=== PATIENT | male | born 1960 | race Caucasian/White ===

== ENCOUNTER 2019-06-30 15:19 | Inpatient (IN) | payer MEDICARE, SELFPAY ==
[~2019-06-30] VITALS: Ht 167.6 cm; Wt 73.3 kg
[~2019-06-30 15:19] MED LIST: CLON1TAB8 PO; CLON2TAB7 PO; COGENTIN; DEPAKOTE ER; FLUP25TA PO; FLUP25VL IM; KLON0.5T; KLON1TAB; LEVO100T5 PO; LOTRIMIN; PROLIXIN; PROLIXIN DECANOATE; PROLIXIN DECONATE; SERO1TAB3; SERO300T20; SYNT100T; SYNT75TA; TRAZ100T; prolixin decanoate
[2019-06-30 16:41] LABS: HEMATOCRIT 43.9 % (42.0-52.0); HEMOGLOBIN 14.8 g/dl (13.5-17.5); MEAN CORPUSCULAR HGB CONC 33.7 g/dl (32.0-36.5); PLATELET COUNT, AUTOMATED 331 10^3/uL (150-450); RED BLOOD COUNT 4.77 10^6/uL (4.30-6.10); WHITE BLOOD COUNT 9.9 10^3/uL (4.0-10.0)
[2019-06-30 17:00] LABS: AMPHETAMINES LEVEL URINE NEGATIVE (NEGATIVE); BARBITURATES URINE NEGATIVE (NEGATIVE); BENZODIAZEPINES URINE NEGATIVE (NEGATIVE); CANNABINOIDS URINE NEGATIVE (NEGATIVE); COCAINE METABOLITE URINE NEGATIVE (NEGATIVE); METHADONE URINE NEGATIVE (NEGATIVE); OPIATES URINE NEGATIVE (NEGATIVE); PHENCYCLIDINE URINE NEGATIVE (NEGATIVE)
[2019-06-30 17:12] LABS: ACETAMINOPHEN LEVEL < 2.0 UG/ML (10.0-30.0); ALBUMIN 4.2 GM/DL (3.2-5.2); ALT/SGPT 19 U/L (12-78); BILIRUBIN,DIRECT < 0.1 MG/DL (0.0-0.2); BILIRUBIN,TOTAL 0.4 MG/DL (0.2-1.0); BLOOD UREA NITROGEN 14 MG/DL (7-18); CARBON DIOXIDE LEVEL 28 MEQ/L (21-32); CHLORIDE LEVEL 105 MEQ/L (98-107); CREATININE FOR GFR 1.01 MG/DL (0.70-1.30); ETHYL ALCOHOL (ETHANOL) 0.003 % (0.000-0.010); GLOMERULAR FILTRATION RATE > 60.0 (>49); GLUCOSE, FASTING 79 MG/DL (70-100); POTASSIUM SERUM 4.3 MEQ/L (3.5-5.1); SALICYLATE LEVEL 2.5 MG/DL (5.0-30.0); SODIUM LEVEL 139 MEQ/L (136-145); TOTAL PROTEIN 7.5 GM/DL (6.4-8.2)
[2019-06-30] MEDS ORDERED: ACETAMINOPHEN TAB 650MG DOSE (2X325MG) PO PRN (19:00)
[2019-06-30] MEDS ORDERED: MAALOX 30 ML SUSP *UDC PO PRN (19:00)
[2019-06-30] MEDS ORDERED: VALA1TAB2 PO (19:15)
[2019-06-30 21:30] VITALS: BP 137/82
[2019-06-30] MEDS: traZODone 50 MG TAB PO PRN (23:12)
[2019-07-01] MEDS ORDERED: LORazepam 2 MG TAB PO ONE (03:45)
[2019-07-01 07:40] VITALS: BP 128/84
[2019-07-01] MEDS: NICOTINE 21MG/24HR 1 EA TRANSDERMAL TD SCH (08:00)
--- NOTE | 2019-07-01 08:18 | MHHPEPDOC ---
[facility] History & Physical History and Physical New Patient Demario Pierson MRN: N/A Date of : N/A Date of Service: 07/01/2019 Chief Complaint "I've done some horrible things." History of Present Illness The patient is a 59-year-old man was brought in for depression and suicidal ideation. He reportedly came to the ED after bringing himself to the police sta ting that he had done terrible things to people and had listed a list of unusual fairly bizarre way, stating that he had done horrible things to people. He reports suicidal thoughts with intention to kill himself with a car, but had asked for help. He was brought into the ER, assessed and admitted. The patient has a well-known history of psychotic disorder and presents in a fairly bizarre disorganized manner. When I attempted to interview the patient, he was fairly disorganized, unable to engage with a significant part of the interview and I was unable to focus him towards answering much of the questions as he spoke about bizarre topics such as fluids in the refrigerator and was unable to be focused to any great degree. Thus the information below is extracted from his psychosocial and other chart review. Review Of Systems Unable to gain a full and effective review of systems due patient's mental status. Past Psychiatric History The patient has reported history being hospitalized in the past, tried on Prolixin last time in 2008. At the time, he was reportedly diagnosed with schizoaffective disorder, unclear if any history of suicide. Allergies Please see below. Family Psychiatric History The patient denies/is unaware any history of mental health history including addictions and suicide. Social History The patient reportedly has grown up in the local area. Never with no children. He subsists on social security disability third of the month. Reports a high school education. Reports that he has been arrested due to molesting "a whole bunch of people." He reports being sentenced to "99 years" and been convicted of a sexual offense, however, this is unclear due to the potential psychotic presentation. He reports growing up in a household with his parents with a good relationship with them. Substance Abuse History The patient reports history in the past about alcohol use and tobacco use, unclear the extent of recent use. Medical History Has a history of COPD and other metabolic disorders. Mental Status Examination General: Poor hygiene Speech: Sparse Thought processes: Tangential MSK: Smooth and coordinated gait, no signs of tremors or involuntary orofacial movements Thought content: Bizarre Abstract reasoning, and computation: Impaired Description of associations: Impaired Description of abnormal or psychotic thoughts: Denies any suicidal or homicidal ideation. Does appear to respond to internal stimuli. Judgment: Poor Insight: Poor Orientation: Alert and orientated 3 Cognition: Grossly normal Recent and remote memory: Intact Attention span and concentration: Impaired secondary to thought process Fund of knowledge: Adequate Mood: "Bad" Affect: Flat with little reactivity Diagnoses Unspecified psychotic disorder. Rule out schizoaffective versus bipolar. Assessment and Plan Schizoaffective disorder, unspecified: We will consider adding fluphenazine as he reports doing positive in the past. He has a long history of psychotic illness, unclear if his current perceptions are delusional or the result of litigation. Disposition Patient will need admission likely lasting longer than 2 midnights in order to treat his severe psychosis impairing his ability to care himself. Problem List 1. Altered thoughts. Initial Treatment Plan 1. Patient was admitted on a 9.39 legal status. 2. Complete history was obtained. 3. With patients permission, family will be contacted and database will be expanded. 4. Patients medication regimen will be reviewed and changed accordingly. 5. Patient will be provided with protected environment. 6. Patient will be treated with individual, group, and milieu therapies. 7. Patient will receive supportive psych-education. 8. Discharge planning will commence immediately. 9. Outpatient follow-up treatment will be strongly recommended. 10. The initial treatment plan will focus initially on: Estimated Length Of Stay Five days. Time Spent 30 minutes. Vital Signs Vital Signs Date Time Temp Pulse Resp B/P (MAP) Pulse Ox O2 Delivery O2 Flow Rate FiO2 07/01/19 07:40 98.1 85 16 128/84 (99) 06/30/19 19:01 98 Room Air Laboratory Data 24H Labs Laboratory Tests 2 06/30/19 16:18: Urine Amphetamines Screen NEGATIVE, Urine Benzodiazepines Screen NEGATIVE, Urine Opiates Screen NEGATIVE, Urine Methadone Screen NEGATIVE, Urine Barbiturates Screen NEGATIVE, Urine Phencyclidine Screen NEGATIVE, Urine Cocaine Metabolite Screen NEGATIVE, Urine Cannabinoids Screen NEGATIVE 06/30/19 16:22: Nucleated Red Blood Cells % (auto) 0.0, Anion Gap 6L, Glomerular Filtration Rate > 60.0, Calcium Level 9.0, Aspartate Amino Transf (AST/SGOT) 11, Alanine Aminotransferase (ALT/SGPT) 19, Alkaline Phosphatase 101, Total Bilirubin 0.4, Direct Bilirubin < 0.1, Total Protein 7.5, Albumin 4.2, Albumin/Globulin Ratio 1.27, Thyroid Stimulating Hormone (TSH) 9.360H, Salicylates Level 2.5L, Acetaminophen Level < 2.0L, Ethyl Alcohol Level 0.003 CBC/BMP Laboratory Tests 06/30/19 16:22 Red Blood Count 4.77, Mean Corpuscular Volume 92.0, Mean Corpuscular Hemoglobin 31.0, Mean Corpuscular Hemoglobin Concent 33.7, Red Cell Distribution Width 14.0 Medications Scheduled Valacyclovir HCl (Valacyclovir) 1,000 Mg Tablet, 1 GM PO TID, (Reported) PATIENT STATES THIS IS CAUSING ITCHING AND DIARRHEA AND IS QUESTIONING IF THIS CAN BE SWITCHED Allergies Coded Allergies: No Known Allergies (Verified , 10/27/05) SUMMER BENITES DO Jul 01, 2019 08:18
--- NOTE | 2019-07-01 10:22 | HPEPDOC ---
General Date of Admission Jun 30, 2019 at 18:59 Date of Service: Jul 01, 2019 Attending Physician: OZZIE ARREAGA MD Chief Complaint The patient is a 59-year-old male admitted with a reason for visit of Unspecified Mood Disorder. Source: Patient Exam Limitations: No limitations Timing/Duration: Other (not applicable) Severity: Other (not applicable) Associated Symptoms: Other (. None) History of Present Illness 59 years old white male with past medical history of bipolar disorder, schizophrenia was admitted with the chief complaints of hearing voices. On reviewing patient's old records and EMR. Also was found to have a history of hypothyroidism and when inquired patient said he has not taken any meds for lost 3 years and he was also on Maco cracks for dental herpes 6 months ago. Does not complaining of any new medical complaints such as mild spent tired, fatigue, dry skin, chest pain, nausea, vomiting, shortness of breath, etc. Home Medications Scheduled Valacyclovir HCl (Valacyclovir) 1,000 Mg Tablet, 1 GM PO TID, (Reported) PATIENT STATES THIS IS CAUSING ITCHING AND DIARRHEA AND IS QUESTIONING IF THIS CAN BE SWITCHED Allergies Coded Allergies: No Known Allergies (Verified , 10/27/05) Past Medical History Medical History Dental herpes, hypothyroidism, bipolar disorder, schizophrenia Surgical History Dental extraction Family History Significant Family History: No pertinent family hx (. Mother had diabetes and hypertension) Social History * Smoker: current smoker, greater than 1 pack/day Alcohol: Denies Drugs: marijuana A-FIB/CHADSVASC A-FIB History Current/History of A-Fib/PAF?: No Review of Systems Constitutional: Denies: Chills, Fever, Malaise, Night Sweats, Weakness, Fatigue, Weight Loss, Lethargy, Other Eyes: Denies: Pain, Vision change, Conjunctivae inflammation, Eyelid inflammation, Redness, Other ENT: Denies: Head Aches, Ear Pain, Dysphagia, Sinus Congestion, Post Nasal Drip, Sore Throat, Epistaxis, Other Symptoms Skin: Denies: Rash, Lesions, Jaundice, Bruising, Itching, Dry, Breakdown, Nail Changes, Other Pulmonary: Denies: Dyspnea, Cough, Pleuritic Chest Pain, Other Symptoms Cardiovascular: Denies: Chest Pain, Palpitations, Orthopnea, Paroxysmal Noc. Dyspnea, Edema, Lt Headedness, Other Symptoms Gastrointestinal: Denies: Nausea, Vomiting, Abdominal Pain, Diarrhea, Constipation, Melena, Hematochezia, Other Symptoms Genitourinary: Denies: Dysuria, Frequency, Incontinence, Hematuria, Retention, Other Symptoms Hematologic: Denies: Bruising, Bleeding Excessively, Petecchia, Purpura, Enlarged Lymph Nodes, Other Hematologic Endocrine: Denies: Polydipsia, Polyphagia, Polyuria, Heat Intolerance, Cold Intolerance, Other Endocrine Sx Musculoskeletal: Denies: Neck Pain, Back Pain, Shoulder Pain, Arm Pain, Hand Pain, Leg Pain, Foot Pain, Joint Pain, Muscle Pain, Spasms, Other Symptoms Neurological: Denies: Weakness, Numbness, Incoordination, Change in speech, Confusion, Seizures, Other Symptoms Psych: Reports: Other Psych (, hearing voices) Physical Examination General Exam: Positive: Alert, Cooperative Eye Exam: Positive: PERRLA, Conjunctiva & lids normal ENT Exam: Positive: Atraumatic, Mucous membr. moist/pink Neck Exam: Positive: Supple Chest Exam: Positive: Clear to auscultation, Normal air movement Heart Exam: Positive: Rate Normal, Normal S1, Normal S2 Abdomen Exam: Positive: Normal bowel sounds, Soft Extremity Exam: Positive: Normal pulses Skin Exam: Positive: Nl turgor and temperature Neuro Exam: Positive: Strength at 5/5 X4 ext, Sensation Intact Psych Exam: Positive: Mood NL, Oriented x 3 Vital Signs Vital Signs Date Time Temp Pulse Resp B/P (MAP) Pulse Ox O2 Delivery O2 Flow Rate FiO2 07/01/19 07:40 98.1 85 16 128/84 (99) 06/30/19 19:01 98 Room Air Laboratory Data Labs 24H Laboratory Tests 2 06/30/19 16:18: Urine Amphetamines Screen NEGATIVE, Urine Benzodiazepines Screen NEGATIVE, Urine Opiates Screen NEGATIVE, Urine Methadone Screen NEGATIVE, Urine Barbiturates Screen NEGATIVE, Urine Phencyclidine Screen NEGATIVE, Urine Cocaine Metabolite Screen NEGATIVE, Urine Cannabinoids Screen NEGATIVE 06/30/19 16:22: Nucleated Red Blood Cells % (auto) 0.0, Anion Gap 6L, Glomerular Filtration Rate > 60.0, Calcium Level 9.0, Aspartate Amino Transf (AST/SGOT) 11, Alanine Aminotransferase (ALT/SGPT) 19, Alkaline Phosphatase 101, Total Bilirubin 0.4, Direct Bilirubin < 0.1, Total Protein 7.5, Albumin 4.2, Albumin/Globulin Ratio 1.27, Thyroid Stimulating Hormone (TSH) 9.360H, Salicylates Level 2.5L, Acetaminophen Level < 2.0L, Ethyl Alcohol Level 0.003 CBC/BMP Laboratory Tests 06/30/19 16:22 Red Blood Count 4.77, Mean Corpuscular Volume 92.0, Mean Corpuscular Hemoglobin 31.0, Mean Corpuscular Hemoglobin Concent 33.7, Red Cell Distribution Width 14.0 Problems (1) Schizophrenia Status: Chronic Problem Text: 59 years old white male with past medical history of hypothyroidism. Dental herpes, schizophrenia, bipolar disorder, admitted with chief complaints of hearing voices. For psych management as per his psychiatric attending Group and individual counseling (2) Bipolar disorder Status: Chronic Problem Text: As above (3) Hx of herpes labialis Status: Chronic Problem Text: History of dental herpes Patient has no dentures and he is to pick him up from his dentist No evidence of any acute infection at the present time (4) Hypothyroid Status: Chronic Problem Text: History of hypothyroidism. Patient has not taken his meds since last 3 years Repeat TSH and free T4 Will restart meds, once the laboratory work is available Plan / VTE VTE Prophylaxis Ordered?: No VTE Exclusion Mechanical Proph: Low Risk for VTE VTE Exclusion Pharmacological: At Low Risk for VTE OZZIE ARREAGA MD Jul 01, 2019 10:22
[2019-07-01 11:44] LABS: FREE T4 0.72 NG/DL (0.76-1.46); THYROID STIMULATING HORMONE 11.2 uIU/ML (0.358-3.740)
[2019-07-01 18:00] VITALS: BP 108/68
[2019-07-01] MEDS: valACYclovir HCL 500 MG TAB PO SCH (20:01)
[2019-07-01] MEDS: traZODone 50 MG TAB PO PRN (20:40)
[2019-07-02] MEDS ORDERED: LORazepam 2 MG TAB PO ONE (01:00)
[2019-07-02] MEDS: LEVOTHYROXINE 50MCG TABLET (0.05MG) PO SCH (06:15)
[2019-07-02 06:32] VITALS: BP 112/76
[2019-07-02] MEDS: valACYclovir HCL 500 MG TAB PO SCH ×3 (08:03→20:30)
[2019-07-02] MEDS: NICOTINE 21MG/24HR 1 EA TRANSDERMAL TD SCH (08:53)
--- NOTE | 2019-07-02 09:41 | MHIPNPDOC ---
[facility] [place] Progress Note Progress Note Inpatient Progress Note Demario Pierson MRN: N/A Date of : N/A Date of Service: 07/02/2019 History of Present Illness The patient is a 59-year-old man was brought in for depression and suicidal ideation. He reportedly came to the ED after bringing himself to the police stating that he had done terrible things to people and had listed a list of unusual fairly bizarre way, stating that he had done horrible things to people. He reports suicidal thoughts with intention to kill himself with a car, but had asked for help. He was brought into the ER, assessed and admitted. The patient has a well-known history of psychotic disorder and presents in a fairly bizarre disorganized manner. When I attempted to interview the patient, he was fairly disorganized, unable to engage with a significant part of the interview and I was unable to focus him towards answering much of the questions as he spoke about bizarre topics such as fluids in the refrigerator and was unable to be focused to any great degree. Thus the information below is extracted from his psychosocial and other chart review. Interval History The patient was met with today. He was laying in his bed and would not come out in order to meet, so he is met with in his room. The patient related that he was still feeling "bad," but still remained fairly bizarre on the unit. He made various unusual statements, but was able to answer some questions when posed directly. Further information gathered from staff that have treated him in the past reveal a man who is severely psychotic with a psychotic illness. Reportedly, he had come into the police station with a list of people that he had reportedly abused, but has been fairly bizarre in groups describing contradictory information and generally unable to relate a coherent story. He has not had any major behavioral problems overnight, although nursing still note he is very bizarre nature and activities. Review Of Systems General: Denies fever or appetite changes Cardiovascular: Denies Chest pain or palpations GI: Denies Nausea, vomiting, or bowel changes Respiratory: Denies shortness of breath or cough Neuro: Denies dizziness, tremors Derm: Denies any rashes or pruritus : Denies any dysuria or urinary dysfunction MSK: Denies any muscle tightness or stiffness HEENT: Denies any vision changes or headaches Heme/Lymph: denies any bruising or bleeding Endo: denies any cold/heat intolerance or water intake changes Psychotherapy None on this visit. Vital Signs Reviewed. Mental Status Examination General: Poor hygiene Speech: Sparse Thought processes: Tangential MSK: Smooth and coordinated gait, no signs of tremors or involuntary orofacial movements Thought content: Bizarre Abstract reasoning, and computation: Impaired Description of associations: Impaired Description of abnormal or psychotic thoughts: Denies any suicidal or homicidal ideation. Does appear to respond to internal stimuli. Judgment: Poor Insight: Poor Orientation: Alert and orientated 3 Cognition: Grossly normal Recent and remote memory: Intact Attention span and concentration: Impaired secondary to thought process Fund of knowledge: Adequate Mood: "Okay" Affect: Flat with little reactivity Diagnoses Unspecified psychotic disorder. Rule out schizoaffective versus bipolar. Assessment and Plan Schizoaffective disorder, unspecified: We will start Prolixin 5 mg nightly as he reports positive effects in the past with injectable medications doing well for him. Discussed risks, benefits and potential side effects with patient. Disposition The patient will need further inpatient admission in order to treat his psychosis and further understand his behavior and the events leading to his admission as he is highly impaired, posing a danger to himself. Time Spent 15 minutes Friday Vital Signs Vital Signs Date Time Temp Pulse Resp B/P (MAP) Pulse Ox O2 Delivery O2 Flow Rate FiO2 07/02/19 08:33 Room Air 07/02/19 06:32 98.0 86 16 112/76 (88) 06/30/19 19:01 98 Laboratory Data 24H Labs Laboratory Tests 2 07/01/19 10:43: Thyroid Stimulating Hormone (TSH) 11.200H, Free Thyroxine 0.72L Current Medications Current Medications Medications (Trade) Dose Ordered Sig/Vivienne Route PRN Reason Start Time Stop Time Status Last Admin Dose Admin Acetaminophen (Tylenol Tab) 650 mg Q6HP PRN PO HEADACHE or DISCOMFORT 06/30/19 19:00 06/30/19 23:13 Al Hydrox/Mg Hydrox/Simethicone (Mylanta) 30 ml Q4HP PRN PO HEARTBURN/INDIGESTION 06/30/19 19:00 Home Med (Med Rec Complete!) ASDIRECTED XX 06/30/19 19:30 06/30/19 19:19 DC Levothyroxine Sodium (Synthroid) 50 mcg DAILY@06 PO 07/02/19 06:00 07/02/19 06:15 Magnesium Hydroxide (Milk Of Magnesia) 30 ml DAILYPRN PRN PO CONSTIPATION 06/30/19 19:00 Nicotine (Nicoderm Cq 21mg) 1 patch DAILY TD 07/01/19 09:00 Trazodone HCl (Desyrel) 50 mg QHSP PRN PO INSOMNIA 06/30/19 19:00 07/01/19 20:40 Valacyclovir HCl (Valtrex) 500 mg TID PO 07/01/19 21:00 07/02/19 08:03 Allergies Coded Allergies: No Known Allergies (Verified , 10/27/05) SUMMER BENITES DO Jul 02, 2019 09:41
[2019-07-02] MEDS ORDERED: valACYclovir HCL 500 MG TAB PO SCH (16:00)
[2019-07-02 16:05] VITALS: BP 142/83
[2019-07-02] MEDS: traZODone 50 MG TAB PO PRN (20:30)
[2019-07-03] MEDS: LEVOTHYROXINE 50MCG TABLET (0.05MG) PO SCH (06:31)
[2019-07-03 06:56] VITALS: BP 130/77
[2019-07-03] MEDS: NICOTINE 21MG/24HR 1 EA TRANSDERMAL TD SCH (08:12)
[2019-07-03] MEDS: valACYclovir HCL 500 MG TAB PO SCH ×3 (08:13→21:57)
[2019-07-03 16:05] VITALS: BP 118/75
--- NOTE | 2019-07-03 18:27 | MHIPNPDOC ---
[facility] Progress Note Progress Note DATE OF SERVICE: 07/03/19 HISTORY: As per previous records: "The patient is a 59-year-old man was brought in for depression and suicidal ideation. He reportedly came to the ED after br inging himself to the police stating that he had done terrible things to people and had listed a list of unusual fairly bizarre way, stating that he had done horrible things to people. He reports suicidal thoughts with intention to kill himself with a car, but had asked for help. He was brought into the ER, assessed and admitted. The patient has a well-known history of psychotic disorder and presents in a fairly bizarre disorganized manner. When I attempted to interview the patient, he was fairly disorganized, unable to engage with a significant part of the interview and I was unable to focus him towards answering much of the questions as he spoke about bizarre topics such as fluids in the refrigerator and was unable to be focused to any great degree. Thus the information below is extracted from his psychosocial and other chart review." VITAL SIGNS: See below. NEW TEST RESULTS: See below CURRENT MEDICATIONS: See below. MENTAL STATUS EXAMINATION: Patient is a 59 year old male, who is dressed in hospital clothes, cooperative. Speech: Is impoverished, tangential. Language skills are limited at this time. Thought processes including: tangential, disorganized. Thought content: self deprecating, guilty thoughts, derailed, ideas of reference. Denies SI, denies HI, denies paranoid delusions, bizarre delusions. He feels as if there's some stimuli in his mind that has been stimulating other people's minds, he thinks it causes a frequency that goes up and down in their heads and can affect their mind the same way it does to him. Abstract reasoning, and computation: limited at this time Description of associations: Loose Description of abnormal or psychotic thoughts: He has ideas of reference, thought insertion ( he thinks his mind can affect other people's minds). He denies T/A/V hallucinations Judgment: limited at this time Insight: poor Orientation: to place and person Recent and remote memory: limited at this time, he is psychotic Attention span and concentration: tries to keep focused but is hard Language: no abnormalities observed Fund of knowledge: not evaluated at this time Mood: overwhelmed, depressed Affect: depressed, sad, hopeless DIAGNOSES: 1. Schizoaffective disorder ASSESSMENT: patient is very depressed, he is aware of the cognitive impairment the illness i creating, when he is not able to read or focus on a T.V program. Provided support and encouraged him to keep attending groups, asked him to not to get discouraged, to stay in the here and now as much as he can. MANAGEMENT PLAN: As per Dr. Hay TIME SPENT: 30 minutes. Vital Signs Vital Signs Date Time Temp Pulse Resp B/P (MAP) Pulse Ox O2 Delivery O2 Flow Rate FiO2 07/03/19 06:56 98.4 69 14 130/77 (94) 07/02/19 08:33 Room Air 06/30/19 19:01 98 Current Medications Current Medications Medications (Trade) Dose Ordered Sig/Vivienne Route PRN Reason Start Time Stop Time Status Last Admin Dose Admin Acetaminophen (Tylenol Tab) 650 mg Q6HP PRN PO HEADACHE or DISCOMFORT 06/30/19 19:00 06/30/19 23:13 Al Hydrox/Mg Hydrox/Simethicone (Mylanta) 30 ml Q4HP PRN PO HEARTBURN/INDIGESTION 06/30/19 19:00 Fluphenazine HCl (Prolixin) 5 mg BID PO 07/02/19 21:00 07/03/19 08:13 Home Med (Med Rec Complete!) ASDIRECTED XX 06/30/19 19:30 06/30/19 19:19 DC Levothyroxine Sodium (Synthroid) 50 mcg DAILY@06 PO 07/02/19 06:00 07/03/19 06:31 Magnesium Hydroxide (Milk Of Magnesia) 30 ml DAILYPRN PRN PO CONSTIPATION 06/30/19 19:00 Nicotine (Nicoderm Cq 21mg) 1 patch DAILY TD 07/01/19 09:00 Trazodone HCl (Desyrel) 50 mg QHSP PRN PO INSOMNIA 06/30/19 19:00 07/02/19 20:30 Valacyclovir HCl (Valtrex) 500 mg TID PO 07/01/19 21:00 07/03/19 08:13 Valacyclovir HCl (Valtrex) 500 mg TID PO 07/02/19 16:00 07/02/19 13:05 DC Allergies Coded Allergies: No Known Allergies (Verified , 10/27/05) TOY RIDDLE MD Jul 03, 2019 13:56
[2019-07-03] MEDS: traZODone 50 MG TAB PO PRN (21:57)
[2019-07-04] MEDS: LEVOTHYROXINE 50MCG TABLET (0.05MG) PO SCH (06:00)
[2019-07-04 06:41] VITALS: BP 141/81
[2019-07-04] MEDS: NICOTINE 21MG/24HR 1 EA TRANSDERMAL TD SCH (08:45)
[2019-07-04] MEDS: valACYclovir HCL 500 MG TAB PO SCH ×3 (08:45→20:14)
--- NOTE | 2019-07-04 12:08 | MHIPNPDOC ---
[facility] Progress Note Progress Note DATE OF SERVICE: 07/04/19 HISTORY: As per previous records: "The patient is a 59-year-old man was brought in for depression and suicidal ideation. He reportedly came to the ED after br inging himself to the police stating that he had done terrible things to people and had listed a list of unusual fairly bizarre way, stating that he had done horrible things to people. He reports suicidal thoughts with intention to kill himself with a car, but had asked for help. He was brought into the ER, assessed and admitted. The patient has a well-known history of psychotic disorder and presents in a fairly bizarre disorganized manner. When I attempted to interview the patient, he was fairly disorganized, unable to engage with a significant part of the interview and I was unable to focus him towards answering much of the questions as he spoke about bizarre topics such as fluids in the refrigerator and was unable to be focused to any great degree. Thus the information below is extracted from his psychosocial and other chart review." VITAL SIGNS: See below. NEW TEST RESULTS: See below CURRENT MEDICATIONS: See below. MENTAL STATUS EXAMINATION: Patient is a 59 year old male, who is dressed in hospital clothes, cooperative. Speech: tangential, disorganized Language skills fair Thought processes including: tangential, disorganized. Thought content: self deprecating, guilty thoughts, derailed, ideas of reference. Denies SI, denies HI, denies paranoid delusions, bizarre delusions. He feels as if there's some stimuli in his mind that has been stimulating other people's minds, he thinks it causes a frequency that goes up and down in their heads and can affect their mind the same way it does to him. Abstract reasoning, and computation: limited at this time Description of associations: Loose Description of abnormal or psychotic thoughts: He has ideas of reference, thought insertion ( he thinks his mind can affect other people's minds). He d enies T/A/V hallucinations Judgment: limited at this time Insight: poor Orientation: to place and person Recent and remote memory: limited at this time, he is psychotic Attention span and concentration: tries to keep focused but is hard Language: no abnormalities observed Fund of knowledge: not evaluated at this time Mood: overwhelmed, depressed Affect: depressed, sad, hopeless DIAGNOSES: 1. Schizoaffective disorder ASSESSMENT: The patient continues to be depressed, he has told me he was about 18 years old when he had his first "nervous breakdown" and he has had them ever since. He thinks he is not intelligent, he calls himself a dumb person. He receives upport, talked with him about cognitive distortions and explained that he doesn't see anything positive in his life because he is depressed but asked him to be patient, because she will feel better, only it will take time. Patient is pleasant, he is struggling with his mind, with the delusions, depression and the difficulties his illness is causing, like for example, when he wants to re ad, is very hard for him to do it because his psychotic thoughts/ delusions interfere with it. He is less anxious than yesterday MANAGEMENT PLAN: As per Dr. Hay TIME SPENT: 30 minutes. Vital Signs Vital Signs Date Time Temp Pulse Resp B/P (MAP) Pulse Ox O2 Delivery O2 Flow Rate FiO2 07/04/19 06:41 97.2 76 16 141/81 (101) 07/02/19 08:33 Room Air 06/30/19 19:01 98 Current Medications Current Medications Medications (Trade) Dose Ordered Sig/Vivienne Route PRN Reason Start Time Stop Time Status Last Admin Dose Admin Acetaminophen (Tylenol Tab) 650 mg Q6HP PRN PO HEADACHE or DISCOMFORT 06/30/19 19:00 06/30/19 23:13 Al Hydrox/Mg Hydrox/Simethicone (Mylanta) 30 ml Q4HP PRN PO HEARTBURN/INDIGESTION 06/30/19 19:00 Fluphenazine HCl (Prolixin) 5 mg BID PO 07/02/19 21:00 07/04/19 08:45 Home Med (Med Rec Complete!) ASDIRECTED XX 06/30/19 19:30 06/30/19 19:19 DC Levothyroxine Sodium (Synthroid) 50 mcg DAILY@06 PO 07/02/19 06:00 07/04/19 06:00 Magnesium Hydroxide (Milk Of Magnesia) 30 ml DAILYPRN PRN PO CONSTIPATION 06/30/19 19:00 Nicotine (Nicoderm Cq 21mg) 1 patch DAILY TD 07/01/19 09:00 Trazodone HCl (Desyrel) 50 mg QHSP PRN PO INSOMNIA 06/30/19 19:00 07/03/19 21:57 Valacyclovir HCl (Valtrex) 500 mg TID PO 07/01/19 21:00 07/04/19 08:45 Valacyclovir HCl (Valtrex) 500 mg TID PO 07/02/19 16:00 07/02/19 13:05 DC Allergies Coded Allergies: No Known Allergies (Verified , 10/27/05) TOY RIDDLE MD Jul 04, 2019 12:08
[2019-07-04 16:05] VITALS: BP 134/75
[2019-07-04] MEDS: traZODone 50 MG TAB PO PRN (22:46)
[2019-07-05] MEDS: LEVOTHYROXINE 50MCG TABLET (0.05MG) PO SCH (05:39)
[2019-07-05 06:24] VITALS: BP 133/86
[2019-07-05] MEDS: valACYclovir HCL 500 MG TAB PO SCH ×3 (08:33→21:04)
[2019-07-05] MEDS: NICOTINE 21MG/24HR 1 EA TRANSDERMAL TD SCH (08:38)
--- NOTE | 2019-07-05 09:29 | MHIPNPDOC ---
[facility] Progress Note Progress Note Inpatient Progress Note Demario Pierson MRN: N/A Date of : N/A Date of Service: 07/05/2019 History of Present Illness The patient is a 59-year-old man was brought in for depression and suicidal ideation. He reportedly came to the ED after bringing himself to the police stating that he had done terrible things to people and had listed a list of unusual fairly bizarre way, stating that he had done horrible things to people. He reports suicidal thoughts with intention to kill himself with a car, but had asked for help. He was brought into the ER, assessed and admitted. The patient has a well-known history of psychotic disorder and presents in a fairly bizarre disorganized manner. When I attempted to interview the patient, he was fairly disorganized, unable to engage with a significant part of the interview and I was unable to focus him towards answering much of the questions as he spoke about bizarre topics such as fluids in the refrigerator and was unable to be focused to any great degree. Thus the information below is extracted from his psychosocial and other chart review. Interval History The patient was met with in the hallway as all offices were being used. The patient initially took quite a bit of prompting in order to meet with me as he said that he was "fine." The patient was able to state that he was feeling "bad about the things that he had done." Information gleaned from the [facility] Police appears to demonstrate the patient bizarrely came in with a note of people he had "hurt", however, they have no record or indication that he has committed any crimes and that this is likely a psychotic delusion. The patient has been not attending groups and generally socially isolative on the unit. He states that he is unclear how he will proceed now feeling that he will "go to [facility]." He appears to have significant guilt and self-rapprochement that is of a highly delusional nature. He reports that he is tolerating the Prolixin well. Review Of Systems General: Denies fever or appetite changes Cardiovascular: Denies Chest pain or palpations GI: Denies Nausea, vomiting, or bowel changes Respiratory: Denies shortness of breath or cough Neuro: Denies dizziness, tremors Derm: Denies any rashes or pruritus : Denies any dysuria or urinary dysfunction HEENT: Denies any vision changes or headaches Heme/Lymph: denies any bruising or bleeding Psychotherapy None on this visit. Vital Signs Reviewed. Mental Status Examination General: Poor hygiene Speech: Sparse Thought processes: Tangential MSK: Smooth and coordinated gait, no signs of tremors or involuntary orofacial movements Thought content: Bizarre Abstract reasoning, and computation: Impaired Description of associations: Impaired Description of abnormal or psychotic thoughts: Denies any suicidal or homicidal ideation. Does appear to respond to internal stimuli. Judgment: Poor Insight: Poor Orientation: Alert and orientated 3 Cognition: Grossly normal Recent and remote memory: Intact Attention span and concentration: Impaired secondary to thought process Fund of knowledge: Adequate Mood: "Okay" Affect: Flat with little reactivity Diagnoses Unspecified psychotic disorder. Rule out schizoaffective versus bipolar. Assessment and Plan Sookie-copy [id number] Schizoaffective disorder, unspecified: Continue Prolixin 5 mg BID. Tobacco use disorder: Continue nicotine patch. Disposition The patient will need further inpatient admission in order to treat his psychosis and further understand his behavior and the events leading to his admission as he is highly impaired, posing a danger to himself. Time Spent 15 minutes. Friday Vital Signs Vital Signs Date Time Temp Pulse Resp B/P (MAP) Pulse Ox O2 Delivery O2 Flow Rate FiO2 07/05/19 06:24 98.3 74 18 133/86 (102) 07/02/19 08:33 Room Air 06/30/19 19:01 98 Current Medications Current Medications Medications (Trade) Dose Ordered Sig/Vivienne Route PRN Reason Start Time Stop Time Status Last Admin Dose Admin Acetaminophen (Tylenol Tab) 650 mg Q6HP PRN PO HEADACHE or DISCOMFORT 06/30/19 19:00 06/30/19 23:13 Al Hydrox/Mg Hydrox/Simethicone (Mylanta) 30 ml Q4HP PRN PO HEARTBURN/INDIGESTION 06/30/19 19:00 Fluphenazine HCl (Prolixin) 5 mg BID PO 07/02/19 21:00 07/05/19 08:33 Home Med (Med Rec Complete!) ASDIRECTED XX 06/30/19 19:30 06/30/19 19:19 DC Levothyroxine Sodium (Synthroid) 50 mcg DAILY@06 PO 07/02/19 06:00 07/05/19 05:39 Magnesium Hydroxide (Milk Of Magnesia) 30 ml DAILYPRN PRN PO CONSTIPATION 06/30/19 19:00 Nicotine (Nicoderm Cq 21mg) 1 patch DAILY TD 07/01/19 09:00 Trazodone HCl (Desyrel) 50 mg QHSP PRN PO INSOMNIA 06/30/19 19:00 07/04/19 22:46 Valacyclovir HCl (Valtrex) 500 mg TID PO 07/01/19 21:00 07/05/19 08:33 Valacyclovir HCl (Valtrex) 500 mg TID PO 07/02/19 16:00 07/02/19 13:05 DC Allergies Coded Allergies: No Known Allergies (Verified , 10/27/05) SUMMER BENITES DO Jul 05, 2019 09:29
[2019-07-05 15:45] VITALS: BP 114/72
[2019-07-05] MEDS: traZODone 50 MG TAB PO PRN (21:04)
[2019-07-06] MEDS: LEVOTHYROXINE 50MCG TABLET (0.05MG) PO SCH (06:17)
[2019-07-06 06:29] VITALS: BP 128/83
[2019-07-06] MEDS: valACYclovir HCL 500 MG TAB PO SCH ×3 (08:06→21:13)
[2019-07-06] MEDS: NICOTINE 21MG/24HR 1 EA TRANSDERMAL TD SCH (08:07)
--- NOTE | 2019-07-06 12:11 | MHIPNPDOC ---
[facility] Progress Note Progress Note Inpatient Progress Note Demario Pierson MRN: N/A Date of : N/A Date of Service: 07/06/2019 History of Present Illness The patient is a 59-year-old man was brought in for depression and suicidal ideation. He reportedly came to the ED after bringing himself to the police stating that he had done terrible things to people and had listed a list of unusual fairly bizarre way, stating that he had done horrible things to people. He reports suicidal thoughts with intention to kill himself with a car, but had asked for help. He was brought into the ER, assessed and admitted. The patient has a well-known history of psychotic disorder and presents in a fairly bizarre disorganized manner. When I attempted to interview the patient, he was fairly disorganized, unable to engage with a significant part of the interview and I was unable to focus him towards answering much of the questions as he spoke about bizarre topics such as fluids in the refrigerator and was unable to be focused to any great degree. Thus the information below is extracted from his psychosocial and other chart review. Interval History The patient was met with today. He at first takes quite a bit of prompting to come out of his bedroom and to interview. He is spoken to and reports that he still has some of his very negative and delusional thoughts. However, he reports that he is feeling "more level" and that his mood is more stable and that he has much less self-reproachment. Further collateral information appears to suggest a strong possibility that the patient is delusional about the reported crimes that he states he has committed. The patient still has remained somewhat bizarre, but is more amenable. He has been socially isolative per nursing staff. Has rarely, if ever, attended any groups other than [employer] but has not any significant behavioral outbursts. Review Of Systems General: Denies fever or appetite changes Cardiovascular: Denies Chest pain or palpations GI: Denies Nausea, vomiting, or bowel changes Respiratory: Denies shortness of breath or cough Neuro: Denies dizziness, tremors Derm: Denies any rashes or pruritus : Denies any dysuria or urinary dysfunction HEENT: Denies any vision changes or headaches Heme/Lymph: denies any bruising or bleeding Psychotherapy None on this visit. Vital Signs Reviewed. Mental Status Examination General: Poor hygiene Speech: Sparse Thought processes: Tangential MSK: Smooth and coordinated gait, no signs of tremors or involuntary orofacial movements Thought content: Bizarre Abstract reasoning, and computation: Impaired Description of associations: Impaired Description of abnormal or psychotic thoughts: Denies any suicidal or homicidal ideation. Does appear to respond to internal stimuli. Judgment: Poor Insight: Poor Orientation: Alert and orientated 3 Cognition: Grossly normal Recent and remote memory: Intact Attention span and concentration: Impaired secondary to thought process Fund of knowledge: Adequate Mood: "Okay" Affect: Flat with little reactivity Diagnoses Unspecified psychotic disorder. Rule out schizoaffective versus bipolar. Assessment and Plan Schizoaffective disorder, unspecified: Continue Prolixin 5 mg BID. Disposition The patient will need further inpatient admission in order to treat his psychosis and further understand his behavior and the events leading to his adm ission as he is highly impaired, posing a danger to himself. Time Spent 15 minutes [id number] Friday Vital Signs Vital Signs Date Time Temp Pulse Resp B/P (MAP) Pulse Ox O2 Delivery O2 Flow Rate FiO2 07/06/19 06:29 98.4 64 18 128/83 (98) 07/02/19 08:33 Room Air 06/30/19 19:01 98 Current Medications Current Medications Medications (Trade) Dose Ordered Sig/Vivienne Route PRN Reason Start Time Stop Time Status Last Admin Dose Admin Acetaminophen (Tylenol Tab) 650 mg Q6HP PRN PO HEADACHE or DISCOMFORT 06/30/19 19:00 06/30/19 23:13 Al Hydrox/Mg Hydrox/Simethicone (Mylanta) 30 ml Q4HP PRN PO HEARTBURN/INDIGESTION 06/30/19 19:00 Fluphenazine HCl (Prolixin) 5 mg BID PO 07/02/19 21:00 07/06/19 08:06 Home Med (Med Rec Complete!) ASDIRECTED XX 06/30/19 19:30 06/30/19 19:19 DC Levothyroxine Sodium (Synthroid) 50 mcg DAILY@06 PO 07/02/19 06:00 07/06/19 06:17 Magnesium Hydroxide (Milk Of Magnesia) 30 ml DAILYPRN PRN PO CONSTIPATION 06/30/19 19:00 Nicotine (Nicoderm Cq 21mg) 1 patch DAILY TD 07/01/19 09:00 Trazodone HCl (Desyrel) 50 mg QHSP PRN PO INSOMNIA 06/30/19 19:00 07/05/19 21:04 Valacyclovir HCl (Valtrex) 500 mg TID PO 07/01/19 21:00 07/06/19 08:06 Valacyclovir HCl (Valtrex) 500 mg TID PO 07/02/19 16:00 07/02/19 13:05 DC Allergies Coded Allergies: No Known Allergies (Verified , 10/27/05) SUMMER BENITES DO Jul 06, 2019 12:11
[2019-07-06 17:57] VITALS: BP 125/86
[2019-07-06] MEDS: traZODone 50 MG TAB PO PRN (23:44)
[2019-07-07] MEDS: LEVOTHYROXINE 50MCG TABLET (0.05MG) PO SCH (05:44)
[2019-07-07 06:35] VITALS: BP 111/63
[2019-07-07] MEDS: NICOTINE 21MG/24HR 1 EA TRANSDERMAL TD SCH (08:27)
[2019-07-07] MEDS: valACYclovir HCL 500 MG TAB PO SCH ×3 (08:27→21:22)
--- NOTE | 2019-07-07 16:33 | MHIPNPDOC ---
[facility] Progress Note Progress Note Inpatient Progress Note Demario Pierson MRN: N/A Date of : N/A Date of Service: 07/07/2019 History of Present Illness The patient is a 59-year-old man was brought in for depression and suicidal ideation. He reportedly came to the ED after bringing himself to the police stating that he had done terrible things to people and had listed a list of unusual fairly bizarre way, stating that he had done horrible things to people. He reports suicidal thoughts with intention to kill himself with a car, but had asked for help. He was brought into the ER, assessed and admitted. The patient has a well-known history of psychotic disorder and presents in a fairly bizarre disorganized manner. When I attempted to interview the patient, he was fairly disorganized, unable to engage with a significant part of the interview and I was unable to focus him towards answering much of the questions as he spoke about bizarre topics such as fluids in the refrigerator and was unable to be focused to any great degree. Thus the information below is extracted from his psychosocial and other chart review. Interval History The patient is met with today. He reports that he still has negative thoughts, self-reproachment. His ideation still appears delusional and he is focused that he has committed horrible crimes. He is unable to reason as to his current situation, has not been attending groups, isolative to room, but no major behavioral problems. Review Of Systems General: Denies fever or appetite changes Cardiovascular: Denies Chest pain or palpations GI: Denies Nausea, vomiting, or bowel changes Respiratory: Denies shortness of breath or cough Neuro: Denies dizziness, tremors Derm: Denies any rashes or pruritus : Denies any dysuria or urinary dysfunction HEENT: Denies any vision changes or headaches Heme/Lymph: denies any bruising or bleeding Psychotherapy None on this visit. Vital Signs Reviewed. Mental Status Examination General: Poor hygiene Speech: Sparse Thought processes: Tangential MSK: Smooth and coordinated gait, no signs of tremors or involuntary orofacial movements Thought content: Bizarre Abstract reasoning, and computation: Impaired Description of associations: Impaired Description of abnormal or psychotic thoughts: Denies any suicidal or homicidal ideation. Does appear to respond to internal stimuli. Judgment: Poor Insight: Poor Orientation: Alert and orientated 3 Cognition: Grossly normal Recent and remote memory: Intact Attention span and concentration: Impaired secondary to thought process Fund of knowledge: Adequate Mood: "Okay" Affect: Flat with little reactivity Diagnoses Unspecified psychotic disorder. Rule out schizoaffective versus bipolar. Assessment and Plan Schizoaffective disorder, unspecified: Increase Prolixin to 5 mg QAM and 10 mg QHS. Gene schizoaffective disorder unspecified to increase production to 5 milligrams QAM and 10 milligrams qhs Disposition The patient will need further inpatient admission in order to treat his psychosis and further understand his behavior and the events leading to his admission as he is highly impaired, posing a danger to himself. Time Spent 15 minutes. Friday Vital Signs Vital Signs Date Time Temp Pulse Resp B/P (MAP) Pulse Ox O2 Delivery O2 Flow Rate FiO2 07/07/19 06:35 98.7 76 18 111/63 (79) 07/02/19 08:33 Room Air Current Medications Current Medications Medications (Trade) Dose Ordered Sig/Vivienne Route PRN Reason Start Time Stop Time Status Last Admin Dose Admin Acetaminophen (Tylenol Tab) 650 mg Q6HP PRN PO HEADACHE or DISCOMFORT 06/30/19 19:00 06/30/19 23:13 Al Hydrox/Mg Hydrox/Simethicone (Mylanta) 30 ml Q4HP PRN PO HEARTBURN/INDIGESTION 06/30/19 19:00 Fluphenazine HCl (Prolixin) 5 mg BID PO 07/02/19 21:00 07/07/19 08:27 Home Med (Med Rec Complete!) ASDIRECTED XX 06/30/19 19:30 06/30/19 19:19 DC Levothyroxine Sodium (Synthroid) 50 mcg DAILY@06 PO 07/02/19 06:00 07/07/19 05:44 Magnesium Hydroxide (Milk Of Magnesia) 30 ml DAILYPRN PRN PO CONSTIPATION 06/30/19 19:00 Nicotine (Nicoderm Cq 21mg) 1 patch DAILY TD 07/01/19 09:00 Trazodone HCl (Desyrel) 50 mg QHSP PRN PO INSOMNIA 06/30/19 19:00 07/06/19 23:44 Valacyclovir HCl (Valtrex) 500 mg TID PO 07/01/19 21:00 07/07/19 15:56 Valacyclovir HCl (Valtrex) 500 mg TID PO 07/02/19 16:00 07/02/19 13:05 DC Allergies Coded Allergies: No Known Allergies (Verified , 10/27/05) SUMMER BENITES DO Jul 07, 2019 16:33
[2019-07-07 17:54] VITALS: BP 104/67
[2019-07-07] MEDS: traZODone 50 MG TAB PO PRN (21:23)
[2019-07-08] MEDS: LEVOTHYROXINE 50MCG TABLET (0.05MG) PO SCH (06:09)
[2019-07-08 06:45] VITALS: BP 131/83
[2019-07-08] MEDS: NICOTINE 21MG/24HR 1 EA TRANSDERMAL TD SCH (08:49)
[2019-07-08] MEDS: valACYclovir HCL 500 MG TAB PO SCH ×3 (08:51→20:55)
--- NOTE | 2019-07-08 10:53 | MHIPNPDOC ---
[facility] Progress Note Progress Note Inpatient Progress Note Demario Pierson MRN: N/A Date of : N/A Date of Service: 07/08/2019 History of Present Illness The patient is a 59-year-old man was brought in for depression and suicidal ideation. He reportedly came to the ED after bringing himself to the police stating that he had done terrible things to people and had listed a list of unusual fairly bizarre way, stating that he had done horrible things to people. He reports suicidal thoughts with intention to kill himself with a car, but had asked for help. He was brought into the ER, assessed and admitted. The patient has a well-known history of psychotic disorder and presents in a fairly bizarre disorganized manner. When I attempted to interview the patient, he was fairly disorganized, unable to engage with a significant part of the interview and I was unable to focus him towards answering much of the questions as he spoke about bizarre topics such as fluids in the refrigerator and was unable to be focused to any great degree. Thus the information below is extracted from his psychosocial and other chart review. Interval History Patient was attempted to be met with today. He took significant prompting to come to meet in the interview room. He still notes that he feels "down" and that he is still feeling fairly distorted. The patient reports that he has not been drinking a whole lot of water. Staff report they are concerned as he does not hydrate well and generally remains isolative, not going to groups. No major behavioral problems overnight. Review Of Systems General: Denies fever or appetite changes Cardiovascular: Denies Chest pain or palpations GI: Denies Nausea, vomiting, or bowel changes Respiratory: Denies shortness of breath or cough Neuro: Denies dizziness, tremors Derm: Denies any rashes or pruritus : Denies any dysuria or urinary dysfunction HEENT: Denies any vision changes or headaches Heme/Lymph: denies any bruising or bleeding Psychotherapy None on this visit. Vital Signs Reviewed. Mental Status Examination General: Poor hygiene Speech: Sparse Thought processes: Tangential MSK: Smooth and coordinated gait, no signs of tremors or involuntary orofacial movements Thought content: Bizarre Abstract reasoning, and computation: Impaired Description of associations: Impaired Description of abnormal or psychotic thoughts: Denies any suicidal or homicidal ideation. Does appear to respond to internal stimuli. Judgment: Poor Insight: Poor Orientation: Alert and orientated 3 Cognition: Grossly normal Recent and remote memory: Intact Attention span and concentration: Impaired secondary to thought process Fund of knowledge: Adequate Mood: "Okay" Affect: Flat with little reactivity Diagnoses Unspecified psychotic disorder. Rule out schizoaffective versus bipolar. Assessment and Plan Schizoaffective disorder, unspecified: Continue Prolixin 5 mg/10 mg split. Disposition The patient will need further inpatient admission in order to treat his psychosis and further understand his behavior and the events leading to his admission as he is highly impaired, posing a danger to himself. Time Spent Vital Signs Vital Signs Date Time Temp Pulse Resp B/P (MAP) Pulse Ox O2 Delivery O2 Flow Rate FiO2 07/08/19 06:45 97.0 70 14 131/83 (99) 07/02/19 08:33 Room Air Current Medications Current Medications Medications (Trade) Dose Ordered Sig/Vivienne Route PRN Reason Start Time Stop Time Status Last Admin Dose Admin Acetaminophen (Tylenol Tab) 650 mg Q6HP PRN PO HEADACHE or DISCOMFORT 06/30/19 19:00 06/30/19 23:13 Al Hydrox/Mg Hydrox/Simethicone (Mylanta) 30 ml Q4HP PRN PO HEARTBURN/INDIGESTION 06/30/19 19:00 Fluphenazine HCl (Prolixin) 5 mg BID PO 07/02/19 21:00 07/08/19 08:51 Home Med (Med Rec Complete!) ASDIRECTED XX 06/30/19 19:30 06/30/19 19:19 DC Levothyroxine Sodium (Synthroid) 50 mcg DAILY@06 PO 07/02/19 06:00 07/08/19 06:09 Magnesium Hydroxide (Milk Of Magnesia) 30 ml DAILYPRN PRN PO CONSTIPATION 06/30/19 19:00 Nicotine (Nicoderm Cq 21mg) 1 patch DAILY TD 07/01/19 09:00 Trazodone HCl (Desyrel) 50 mg QHSP PRN PO INSOMNIA 06/30/19 19:00 07/07/19 21:23 Valacyclovir HCl (Valtrex) 500 mg TID PO 07/01/19 21:00 07/08/19 08:51 Valacyclovir HCl (Valtrex) 500 mg TID PO 07/02/19 16:00 07/02/19 13:05 DC Allergies Coded Allergies: No Known Allergies (Verified , 10/27/05) SUMMER BENITES DO Jul 08, 2019 10:53
[2019-07-08] MEDS: MOM 30ML SUSPENSION UDC PO PRN (11:56)
[2019-07-08 18:21] VITALS: BP 125/79
[2019-07-08] MEDS: traZODone 50 MG TAB PO PRN (21:07)
[2019-07-09] MEDS ORDERED: QUEtiapine FUMARATE 50 MG TAB PO ONE (01:30)
[2019-07-09 06:12] VITALS: BP 137/67
[2019-07-09] MEDS: LEVOTHYROXINE 50MCG TABLET (0.05MG) PO SCH (06:22)
[2019-07-09] MEDS: valACYclovir HCL 500 MG TAB PO SCH ×3 (08:33→19:56)
[2019-07-09 17:28] VITALS: BP 124/77
[2019-07-10] MEDS: LEVOTHYROXINE 50MCG TABLET (0.05MG) PO SCH (05:51)
[2019-07-10 06:28] VITALS: BP 136/80
[2019-07-10] MEDS: valACYclovir HCL 500 MG TAB PO SCH ×3 (08:17→21:12)
[2019-07-10] MEDS: MOM 30ML SUSPENSION UDC PO PRN (15:19)
[2019-07-10 15:57] VITALS: BP_SYST 120; BP_SYST 96; BP_DIAS 52; BP_DIAS 79
[2019-07-11] MEDS: LEVOTHYROXINE 50MCG TABLET (0.05MG) PO SCH (05:52)
[2019-07-11 06:19] VITALS: BP 144/69
[2019-07-11] MEDS: valACYclovir HCL 500 MG TAB PO SCH ×3 (08:04→20:36)
[2019-07-11 15:53] VITALS: BP 115/77
[2019-07-12] MEDS: LEVOTHYROXINE 50MCG TABLET (0.05MG) PO SCH (05:44)
[2019-07-12 06:05] VITALS: BP 129/68
[2019-07-12] MEDS: valACYclovir HCL 500 MG TAB PO SCH ×3 (08:18→20:00)
--- NOTE | 2019-07-12 10:19 | MHIPNPDOC ---
[facility] Progress Note Progress Note Inpatient Progress Note Demario Pierson MRN: N/A Date of : N/A Date of Service: 07/12/2019 History of Present Illness The patient is a 59-year-old man was brought in for depression and suicidal ideation. He reportedly came to the ED after bringing himself to the police stating that he had done terrible things to people and had listed a list of unusual fairly bizarre way, stating that he had done horrible things to people. He reports suicidal thoughts with intention to kill himself with a car, but had asked for help. He was brought into the ER, assessed and admitted. The patient has a well-known history of psychotic disorder and presents in a fairly bizarre disorganized manner. When I attempted to interview the patient, he was fairly disorganized, unable to engage with a significant part of the interview and I was unable to focus him towards answering much of the questions as he spoke about bizarre topics such as fluids in the refrigerator and was unable to be focused to any great degree. Thus the information below is extracted from his psychosocial and other chart review. Interval History The patient is met with today. He still has significant thoughts of rapprochement and feelings of guilt. He's bizarre and has had trouble drinking water. He believes the water is "poison" and has taken very little water and f ood as he needs prompting. He does take his medications, however, he talks about "hypertension in the eyes and other bizarre ideation as he's interviewed. It's difficult to ascertain symptoms as his thought process is much more disorganized. He is open to trying clozapine. Collateral information appears to support that he does get much better on his medications. The staff have noted that he needs significant prompting to feed himself and otherwise would become significantly dehydrate or starve without prompting. He's had no major behavioral problems, interacts very poorly with staff, isolates to his room. Review Of Systems General: Denies fever or appetite changes Cardiovascular: Denies Chest pain or palpations GI: Denies Nausea, vomiting, or bowel changes Respiratory: Denies shortness of breath or cough Neuro: Denies dizziness, tremors Derm: Denies any rashes or pruritus : Denies any dysuria or urinary dysfunction HEENT: Denies any vision changes or headaches Heme/Lymph: denies any bruising or bleeding Psychotherapy None on this visit. Vital Signs Reviewed. Mental Status Examination General: Poor hygiene Speech: Sparse Thought processes: Tangential MSK: Smooth and coordinated gait, no signs of tremors or involuntary orofacial movements Thought content: Bizarre Abstract reasoning, and computation: Impaired Description of associations: Impaired Description of abnormal or psychotic thoughts: Denies any suicidal or homicidal ideation. Does appear to respond to internal stimuli. Judgment: Poor Insight: Poor Orientation: Alert and orientated 3 Cognition: Grossly normal Recent and remote memory: Intact Attention span and concentration: Impaired secondary to thought process Fund of knowledge: Adequate Mood: "Fine" Affect: Flat with little reactivity Diagnoses Unspecified psychotic disorder. Rule out schizoaffective versus bipolar. Assessment and Plan Schizoaffective disorder, unspecified: Continue Prolixin 5 mg/10 mg split, augment with clozapine 12.5 mg qhs, CBC ordered, discussed risks, benefits and potential side effects with patient as far as he's able to understand. Discussed alternatives and the need for augmentation of his treatment due to significant negative symptoms and resistant psychotic symptoms. Disposition The patient will need further inpatient admission in order to treat his psychosis and further understand his behavior and the events leading to his admission as he is highly impaired, posing a danger to himself. Time Spent 15 mins Friday Vital Signs Vital Signs Date Time Temp Pulse Resp B/P (MAP) Pulse Ox O2 Delivery O2 Flow Rate FiO2 07/12/19 06:05 99.7 66 16 129/68 (88) Current Medications Current Medications Medications (Trade) Dose Ordered Sig/Vivienne Route PRN Reason Start Time Stop Time Status Last Admin Dose Admin Acetaminophen (Tylenol Tab) 650 mg Q6HP PRN PO HEADACHE or DISCOMFORT 06/30/19 19:00 06/30/19 23:13 Al Hydrox/Mg Hydrox/Simethicone (Mylanta) 30 ml Q4HP PRN PO HEARTBURN/INDIGESTION 06/30/19 19:00 Fluphenazine HCl (Prolixin) 5 mg BID PO 07/02/19 21:00 07/08/19 10:57 DC 07/08/19 08:51 Fluphenazine HCl (Prolixin) 5 mg QAM PO 07/09/19 09:00 07/12/19 08:18 Fluphenazine HCl (Prolixin) 10 mg QHS PO 07/08/19 11:00 Cancel Fluphenazine HCl (Prolixin) 10 mg QHS PO 07/08/19 21:00 07/11/19 20:37 Home Med (Med Rec Complete!) ASDIRECTED XX 06/30/19 19:30 06/30/19 19:19 DC Levothyroxine Sodium (Synthroid) 50 mcg DAILY@06 PO 07/02/19 06:00 07/12/19 05:44 Magnesium Hydroxide (Milk Of Magnesia) 30 ml DAILYPRN PRN PO CONSTIPATION 06/30/19 19:00 07/10/19 15:19 Nicotine (Nicoderm Cq 21mg) 1 patch DAILY TD 07/01/19 09:00 07/08/19 11:24 DC Trazodone HCl (Desyrel) 50 mg QHSP PRN PO INSOMNIA 06/30/19 19:00 07/08/19 21:07 Valacyclovir HCl (Valtrex) 500 mg TID PO 07/01/19 21:00 07/12/19 08:18 Valacyclovir HCl (Valtrex) 500 mg TID PO 07/02/19 16:00 07/02/19 13:05 DC Allergies Coded Allergies: No Known Allergies (Verified , 10/27/05) SUMMER BENITES DO Jul 12, 2019 10:19
[2019-07-12] MEDS ORDERED: PILL CUTTER 1 EACH XX PRN (12:45)
[2019-07-12 13:04] LABS: BASO % 0.4 % (0.0-1.0); EOS # 0.3 10^3/uL (0.0-0.5); EOS % 2.5 % (0.0-3.0); HEMOGLOBIN 14.3 g/dl (13.5-17.5); LYMPH # 3.4 10^3/uL (1.5-5.0); LYMPH % 33.4 % (24.0-44.0); MEAN CORPUSCULAR HEMOGLOBIN 30.7 pg (27.0-33.0); MEAN CORPUSCULAR HGB CONC 33.3 g/dl (32.0-36.5); MEAN CORPUSCULAR VOLUME 92.3 fl (80.0-96.0); MONO # 0.9 10^3/uL (0.0-0.8); MONO % 8.9 % (0.0-5.0); NEUTROPHILS # 5.5 10^3/uL (1.5-8.5); NEUTROPHILS % 54.5 % (36.0-66.0); PLATELET COUNT, AUTOMATED 325 10^3/uL (150-450); RED BLOOD COUNT 4.66 10^6/uL (4.30-6.10); WHITE BLOOD COUNT 10.1 10^3/uL (4.0-10.0)
[2019-07-12 15:38] VITALS: BP 107/67
[2019-07-12] MEDS: cloZAPine 25 MG TAB (S0136) PO SCH (21:00)
[2019-07-13] MEDS: LEVOTHYROXINE 50MCG TABLET (0.05MG) PO SCH (06:25)
[2019-07-13 06:46] VITALS: BP 150/84
[2019-07-13] MEDS: valACYclovir HCL 500 MG TAB PO SCH ×3 (08:15→20:53)
--- NOTE | 2019-07-13 11:56 | MHIPNPDOC ---
[facility] Progress Note Progress Note Demario Pierson Inpatient Progress Note Demario Pierson Select Gender MRN: N/A Date of : MM/DD/YYYY Date of Service: 07/13/2019 History of Present Illness The patient is a 59-year-old man was brought in for depression and suicidal ideation. He reportedly came to the ED after bringing himself to the police stating that he had done terrible things to people and had listed a list of unusual fairly bizarre way, stating that he had done horrible things to people. He reports suicidal thoughts with intention to kill himself with a car, but had asked for help. He was brought into the ER, assessed and admitted. The patient has a well-known history of psychotic disorder and presents in a fairly bizarre disorganized manner. When I attempted to interview the patient, he was fairly disorganized, unable to engage with a significant part of the interview and I was unable to focus him towards answering much of the questions as he spoke about bizarre topics such as fluids in the refrigerator and was unable to be focused to any great degree. Thus the information below is extracted from his psychosocial and other chart review. Interval History The patient was met with today. He continues to report that he feels water "causes brain problems". He still remains bizarre and unable to cooperate in an extensive interview, frequently going onto bizarre tangents about nonsensical topics. He has not been attending groups and has been isolative to his room. He continues to report that he feels down about the various things he has done, but is unable to describe them in any length. He still reports to staff bizarre ideation that he committed all these crimes but it appears that all the evidence contrary to it does not sway him from this delusional belief. No major behavioral problems overnight. Review Of Systems General: Denies fever or appetite changes Cardiovascular: Denies Chest pain or palpations GI: Denies Nausea, vomiting, or bowel changes Respiratory: Denies shortness of breath or cough Neuro: Denies dizziness, tremors Derm: Denies any rashes or pruritus : Denies any dysuria or urinary dysfunction HEENT: Denies any vision changes or headaches Heme/Lymph: denies any bruising or bleeding Psychotherapy None on this visit. Vital Signs Reviewed. Mental Status Examination General: Poor hygiene Speech: Sparse Thought processes: Tangential MSK: Smooth and coordinated gait, no signs of tremors or involuntary orofacial movements Thought content: Bizarre Abstract reasoning, and computation: Impaired Description of associations: Impaired Description of abnormal or psychotic thoughts: Denies any suicidal or homicidal ideation. Does appear to respond to internal stimuli. Judgment: Poor Insight: Poor Orientation: Alert and orientated 3 Cognition: Grossly normal Recent and remote memory: Intact Attention span and concentration: Impaired secondary to thought process Fund of knowledge: Adequate Mood: "Fine" Affect: Flat with little reactivity Diagnoses Unspecified psychotic disorder. Rule out schizoaffective versus bipolar. Assessment and Plan Continue Prolixin as below and continue augmentation with cloazpine 12.5 mg at night. CBC within normal range/ANC. Disposition The patient will need further inpatient admission in order to treat his psychosis and further understand his behavior and the events leading to his admission as he is highly impaired, posing a danger to himself. Time Spent 15 minutes [id number] Vital Signs Vital Signs Date Time Temp Pulse Resp B/P (MAP) Pulse Ox O2 Delivery O2 Flow Rate FiO2 07/13/19 06:46 98.6 66 16 150/84 (106) Laboratory Data 24H Labs Laboratory Tests 2 07/12/19 12:42: Immature Granulocyte % (Auto) 0.3, White Blood Count 10.1H, Red Blood Count 4.66, Hemoglobin 14.3, Hematocrit 43.0, Mean Corpuscular Volume 92.3, Mean Corpuscular Hemoglobin 30.7, Mean Corpuscular Hemoglobin Concent 33.3, Red Cell Distribution Width 14.2, Platelet Count 325, Neutrophils (%) (Auto) 54.5, Lymphocytes (%) (Auto) 33.4, Monocytes (%) (Auto) 8.9H, Eosinophils (%) (Auto) 2.5, Basophils (%) (Auto) 0.4, Neutrophils # (Auto) 5.5, Lymphocytes # (Auto) 3.4, Monocytes # (Auto) 0.9H, Eosinophils # (Auto) 0.3, Basophils # (Auto) 0.0, Nucleated Red Blood Cells % (auto) 0.0 CBC/BMP Laboratory Tests 07/12/19 12:42 Red Blood Count 4.66, Mean Corpuscular Volume 92.3, Mean Corpuscular Hemoglobin 30.7, Mean Corpuscular Hemoglobin Concent 33.3, Red Cell Distribution Width 14.2, Neutrophils (%) (Auto) 54.5, Lymphocytes (%) (Auto) 33.4, Monocytes (%) (Auto) 8.9 H, Eosinophils (%) (Auto) 2.5, Basophils (%) (Auto) 0.4, Neutrophils # (Auto) 5.5, Lymphocytes # (Auto) 3.4, Monocytes # (Auto) 0.9 H, Eosinophils # (Auto) 0.3, Basophils # (Auto) 0.0 Current Medications Current Medications Medications (Trade) Dose Ordered Sig/Vivienne Route PRN Reason Start Time Stop Time Status Last Admin Dose Admin Acetaminophen (Tylenol Tab) 650 mg Q6HP PRN PO HEADACHE or DISCOMFORT 06/30/19 19:00 06/30/19 23:13 Al Hydrox/Mg Hydrox/Simethicone (Mylanta) 30 ml Q4HP PRN PO HEARTBURN/INDIGESTION 06/30/19 19:00 Clozapine (Clozaril) 12.5 mg QHS PO 07/12/19 21:00 Fluphenazine HCl (Prolixin) 5 mg BID PO 07/02/19 21:00 07/08/19 10:57 DC 07/08/19 08:51 Fluphenazine HCl (Prolixin) 5 mg QAM PO 07/09/19 09:00 07/13/19 08:15 Fluphenazine HCl (Prolixin) 10 mg QHS PO 07/08/19 11:00 Cancel Fluphenazine HCl (Prolixin) 10 mg QHS PO 07/08/19 21:00 07/12/19 20:00 Home Med (Med Rec Complete!) ASDIRECTED XX 06/30/19 19:30 06/30/19 19:19 DC Levothyroxine Sodium (Synthroid) 50 mcg DAILY@06 PO 07/02/19 06:00 07/13/19 06:25 Magnesium Hydroxide (Milk Of Magnesia) 30 ml DAILYPRN PRN PO CONSTIPATION 06/30/19 19:00 07/10/19 15:19 Nicotine (Nicoderm Cq 21mg) 1 patch DAILY TD 07/01/19 09:00 07/08/19 11:24 DC Trazodone HCl (Desyrel) 50 mg QHSP PRN PO INSOMNIA 06/30/19 19:00 07/08/19 21:07 Valacyclovir HCl (Valtrex) 500 mg TID PO 07/01/19 21:00 07/13/19 08:15 Valacyclovir HCl (Valtrex) 500 mg TID PO 07/02/19 16:00 07/02/19 13:05 DC Allergies Coded Allergies: No Known Allergies (Verified , 10/27/05) SUMMER BENITES DO Jul 13, 2019 11:56
[2019-07-13 16:04] VITALS: BP 114/66
[2019-07-13] MEDS: cloZAPine 25 MG TAB (S0136) PO SCH (20:52)
[2019-07-13] MEDS: traZODone 50 MG TAB PO PRN (20:53)
[2019-07-14] MEDS: LEVOTHYROXINE 50MCG TABLET (0.05MG) PO SCH (06:03)
[2019-07-14 06:20] VITALS: BP 138/77
[2019-07-14] MEDS: valACYclovir HCL 500 MG TAB PO SCH ×3 (09:11→21:51)
--- NOTE | 2019-07-14 10:57 | MHIPNPDOC ---
[facility] Progress Note Progress Note Demario Pierson Inpatient Progress Note Demario Pierson Select Gender MRN: N/A Date of : MM/DD/YYYY Date of Service: 07/14/2019 History of Present Illness The patient is a 59-year-old man was brought in for depression and suicidal ideation. He reportedly came to the ED after bringing himself to the police stat ing that he had done terrible things to people and had listed a list of unusual fairly bizarre way, stating that he had done horrible things to people. He reports suicidal thoughts with intention to kill himself with a car, but had asked for help. He was brought into the ER, assessed and admitted. The patient has a well-known history of psychotic disorder and presents in a fairly bizarre disorganized manner. When I attempted to interview the patient, he was fairly disorganized, unable to engage with a significant part of the interview and I was unable to focus him towards answering much of the questions as he spoke about bizarre topics such as fluids in the refrigerator and was unable to be focused to any great degree. Thus the information below is extracted from his psychosocial and other chart review. Interval History The patient is attempted to be met with today. He declines to me that he stays in his bed, staring off into the distance. The patient reports that he is still "bad and the same." Even after much prompting, he does not come out of his bed in order to meet. He answers only a few questions before going back to sleep. He has no major behavioral problems on the unit, but has not been attending groups significantly. Nursing staff notes he still remains bizarre and paranoid and feeling that he committed the various crimes and have at this point been proven to be likely delusions. The patient still has significant low mood and inability to care for himself. He believes water is "poisoned" and that he is not to take his medication has poisonous minerals." He appears to be more able to attend to needs but requires significant prompting. Review Of Systems The patient denies "problems" with his medications, but declines to answer an extensive review of symptoms. Psychotherapy None on this visit. Vital Signs Reviewed. Mental Status Examination General: Poor hygiene Speech: Sparse Thought processes: Tangential MSK: Smooth and coordinated gait, no signs of tremors or involuntary orofacial movements Thought content: Bizarre Abstract reasoning, and computation: Impaired Description of associations: Impaired Description of abnormal or psychotic thoughts: Denies any suicidal or homicidal ideation. Does appear to respond to internal stimuli. Judgment: Poor Insight: Poor Orientation: Alert and orientated 3 Cognition: Grossly normal Recent and remote memory: Intact Attention span and concentration: Impaired secondary to thought process Fund of knowledge: Adequate Mood: "Same as yesterday" Affect: Flat with little reactivity Diagnoses Unspecified psychotic disorder. Rule out schizoaffective versus bipolar. Assessment and Plan Continue Prolixin as below and continue augmentation with clozapine 12.5 mg at night. CBC within normal range/ANC. Disposition The patient will need further inpatient admission in order to treat his psychosis and further understand his behavior and the events leading to his admission as he is highly impaired, posing a danger to himself. Time Spent 15 [id number]. Vital Signs Vital Signs Date Time Temp Pulse Resp B/P (MAP) Pulse Ox O2 Delivery O2 Flow Rate FiO2 07/14/19 08:23 Room Air 07/14/19 06:20 98.0 64 14 138/77 (97) Current Medications Current Medications Medications (Trade) Dose Ordered Sig/Vivienne Route PRN Reason Start Time Stop Time Status Last Admin Dose Admin Acetaminophen (Tylenol Tab) 650 mg Q6HP PRN PO HEADACHE or DISCOMFORT 06/30/19 19:00 06/30/19 23:13 Al Hydrox/Mg Hydrox/Simethicone (Mylanta) 30 ml Q4HP PRN PO HEARTBURN/INDIGESTION 06/30/19 19:00 Clozapine (Clozaril) 12.5 mg QHS PO 07/12/19 21:00 Fluphenazine HCl (Prolixin) 5 mg BID PO 07/02/19 21:00 07/08/19 10:57 DC 07/08/19 08:51 Fluphenazine HCl (Prolixin) 5 mg QAM PO 07/09/19 09:00 07/14/19 09:11 Fluphenazine HCl (Prolixin) 10 mg QHS PO 07/08/19 11:00 Cancel Fluphenazine HCl (Prolixin) 10 mg QHS PO 07/08/19 21:00 07/13/19 20:53 Home Med (Med Rec Complete!) ASDIRECTED XX 06/30/19 19:30 06/30/19 19:19 DC Levothyroxine Sodium (Synthroid) 50 mcg DAILY@06 PO 07/02/19 06:00 07/14/19 06:03 Magnesium Hydroxide (Milk Of Magnesia) 30 ml DAILYPRN PRN PO CONSTIPATION 06/30/19 19:00 07/10/19 15:19 Nicotine (Nicoderm Cq 21mg) 1 patch DAILY TD 07/01/19 09:00 07/08/19 11:24 DC Trazodone HCl (Desyrel) 50 mg QHSP PRN PO INSOMNIA 06/30/19 19:00 07/13/19 20:53 Valacyclovir HCl (Valtrex) 500 mg TID PO 07/01/19 21:00 07/14/19 09:11 Valacyclovir HCl (Valtrex) 500 mg TID PO 07/02/19 16:00 07/02/19 13:05 DC Allergies Coded Allergies: No Known Allergies (Verified , 10/27/05) SUMMER BENITES DO Jul 14, 2019 10:57
[2019-07-14 16:09] VITALS: BP 126/83
[2019-07-14] MEDS: cloZAPine 25 MG TAB (S0136) PO SCH (21:00)
[2019-07-14] MEDS: traZODone 50 MG TAB PO PRN (21:51)
[2019-07-15 06:01] VITALS: BP 134/76
[2019-07-15] MEDS: LEVOTHYROXINE 50MCG TABLET (0.05MG) PO SCH (06:11)
[2019-07-15] MEDS: valACYclovir HCL 500 MG TAB PO SCH ×3 (08:05→21:06)
--- NOTE | 2019-07-15 11:44 | MHIPNPDOC ---
[facility] [place] Progress Note Progress Note Demario Pierson Inpatient Progress Note Demario Pierson Select Gender MRN: N/A Date of : MM/DD/YYYY Date of Service: 07/15/2019 History of Present Illness The patient is a 59-year-old man who was brought in for depression and suicidal ideation. He reportedly came to the ED after bringing himself to the police stating that he had done terrible things to people and had listed a list of unusual fairly bizarre way, stating that he had done horrible things to people. He reports suicidal thoughts with intention to kill himself with a car, but had asked for help. He was brought into the ER, assessed and admitted. The patient has a well-known history of psychotic disorder and presents in a fairly bizarre disorganized manner. When I attempted to interview the patient, he was fairly disorganized, unable to engage with a significant part of the interview and I was unable to focus him towards answering much of the questions as he spoke about bizarre topics such as fluids in the refrigerator and was unable to be focused to any great degree. Thus the information below is extracted from his psychosocial and other chart review. Interval History The patient is attempted to be met with, however, he declines interview today. He stays in his bed, stating that he will not take the clozapine, although he has taken the Prolixin. He simply answers okay or "no" to most things, still reporting that he feels that some of the medication is poison and that there are various minerals and that they cause his "brain to get sucked out." He still remains bizarre, spending the majority of his day sleeping, not attending groups, he is unable to offer any explanation as to why. He still remains very impaired, requiring significant prompting in order to engage in any activities of daily living. He still has difficulty drinking water as he still feels it is poison. No major behavioral problems overnight. He still answers History answers some questions on review of systems if only superficially. Patient reports that he does have significant problems sleeping as to why he is sleeping during the day. Review Of Systems General: Denies fever or appetite changes Cardiovascular: Denies Chest pain or palpitations GI: Denies Nausea, vomiting, or bowel changes Respiratory: Denies shortness of breath or cough Neuro: Denies dizziness, tremors Derm: Denies any rashes or pruritus : Denies any dysuria or urinary dysfunction HEENT: Denies any vision changes or headaches Heme/Lymph: Denies any bruising or bleeding Psychotherapy None on this visit. Vital Signs Reviewed. Mental Status Examination General: Poor hygiene Speech: Sparse Thought processes: Tangential MSK: Smooth and coordinated gait, no signs of tremors or involuntary orofacial movements Thought content: Bizarre Abstract reasoning, and computation: Impaired Description of associations: Impaired Description of abnormal or psychotic thoughts: Denies any suicidal or homicidal ideation. Does appear to respond to internal stimuli. Judgment: Poor Insight: Poor Orientation: Alert and orientated 3 Cognition: Grossly normal Recent and remote memory: Intact Attention span and concentration: Impaired secondary to thought process Fund of knowledge: Adequate Mood: "Fine" Affect: Flat with little reactivity Diagnoses Unspecified psychotic disorder. Rule out schizoaffective versus bipolar. Assessment and Plan Schizoaffective disorder: Discontinue clozapine, give Prolixin at night as 50 mg QHS, will refer to long-term treatment, start Restoril 7.5 mg nightly for sleep. Discussed risks, benefits and potential side effects with the patient as well as alternatives. Disposition The patient will need further inpatient admission in order to treat his psychosis and further understand his behavior and the events leading to his admission as he is highly impaired, posing a danger to himself. Time Spent 15 minutes [id number]. Vital Signs Vital Signs Date Time Temp Pulse Resp B/P (MAP) Pulse Ox O2 Delivery O2 Flow Rate FiO2 07/15/19 06:01 98.4 77 16 134/76 (95) 07/14/19 08:23 Room Air Current Medications Current Medications Medications (Trade) Dose Ordered Sig/Vivienne Route PRN Reason Start Time Stop Time Status Last Admin Dose Admin Acetaminophen (Tylenol Tab) 650 mg Q6HP PRN PO HEADACHE or DISCOMFORT 06/30/19 19:00 06/30/19 23:13 Al Hydrox/Mg Hydrox/Simethicone (Mylanta) 30 ml Q4HP PRN PO HEARTBURN/INDIGESTION 06/30/19 19:00 Clozapine (Clozaril) 12.5 mg QHS PO 07/12/19 21:00 Fluphenazine HCl (Prolixin) 5 mg BID PO 07/02/19 21:00 07/08/19 10:57 DC 07/08/19 08:51 Fluphenazine HCl (Prolixin) 5 mg QAM PO 07/09/19 09:00 07/15/19 08:05 Fluphenazine HCl (Prolixin) 10 mg QHS PO 07/08/19 11:00 Cancel Fluphenazine HCl (Prolixin) 10 mg QHS PO 07/08/19 21:00 07/14/19 21:51 Home Med (Med Rec Complete!) ASDIRECTED XX 06/30/19 19:30 06/30/19 19:19 DC Levothyroxine Sodium (Synthroid) 50 mcg DAILY@06 PO 07/02/19 06:00 07/15/19 06:11 Magnesium Hydroxide (Milk Of Magnesia) 30 ml DAILYPRN PRN PO CONSTIPATION 06/30/19 19:00 07/10/19 15:19 Nicotine (Nicoderm Cq 21mg) 1 patch DAILY TD 07/01/19 09:00 07/08/19 11:24 DC Trazodone HCl (Desyrel) 50 mg QHSP PRN PO INSOMNIA 06/30/19 19:00 07/14/19 21:51 Valacyclovir HCl (Valtrex) 500 mg TID PO 07/01/19 21:00 07/15/19 08:05 Valacyclovir HCl (Valtrex) 500 mg TID PO 07/02/19 16:00 07/02/19 13:05 DC Allergies Coded Allergies: No Known Allergies (Verified , 10/27/05) SUMMER BENITES DO Jul 15, 2019 11:44
[2019-07-15 17:40] VITALS: BP 98/64
[2019-07-15] MEDS ORDERED: TEMAZEPAM 7.5 MG CAP PO SCH (21:00)
[2019-07-16] MEDS: LEVOTHYROXINE 50MCG TABLET (0.05MG) PO SCH (06:05)
[2019-07-16 06:11] VITALS: BP 125/78
[2019-07-16] MEDS: valACYclovir HCL 500 MG TAB PO SCH ×3 (08:21→21:12)
[2019-07-16] MEDS ORDERED: **PENDING PPD ENTRY XX SCH (09:00)
--- NOTE | 2019-07-16 09:52 | MHIPNPDOC ---
[facility] Progress Note Progress Note Demario Pierson Inpatient Progress Note Demario Pierson Select Gender MRN: N/A Date of : MM/DD/YYYY Date of Service: 07/16/2019 History of Present Illness The patient is a 59-year-old man who was brought in for depression and suicidal ideation. He reportedly came to the ED after bringing himself to the police stating that he had done terrible things to people and had listed a list of unusual fairly bizarre way, stating that he had done horrible things to people. He reports suicidal thoughts with intention to kill himself with a car, but had asked for help. He was brought into the ER, assessed and admitted. The patient has a well-known history of psychotic disorder and presents in a fairly bizarre disorganized manner. When I attempted to interview the patient, he was fairly disorganized, unable to engage with a significant part of the interview and I was unable to focus him towards answering much of the questions as he spoke about bizarre topics such as fluids in the refrigerator and was unable to be focused to any great degree. Thus the information below is extracted from his psychosocial and other chart review. Interval History The patient is met with today. He reports that he has had "no changes." He remains in his bed refusing to get out of his bed in order to have the interview. He describes that he still worries about the medication and consents taking the higher amount of Prolixin. Reports that the Restoril did not help significantly with his sleep. He reports that he still has difficulty sleeping. He continues to be paranoid per staff and refuses to drink water that isn't bottled fearing that it is poisoned. Patient still has difficulty attending to his activities of daily living, but no major behavioral problems overnight. Review Of Systems General: Denies fever or appetite changes Cardiovascular: Denies Chest pain or palpitations GI: Denies Nausea, vomiting, or bowel changes Respiratory: Denies shortness of breath or cough Neuro: Denies dizziness, tremors Derm: Denies any rashes or pruritus : Denies any dysuria or urinary dysfunction HEENT: Denies any vision changes or headaches Heme/Lymph: Denies any bruising or bleeding Psychotherapy None on this visit. Vital Signs Reviewed. Mental Status Examination General: Poor hygiene Speech: Sparse Thought processes: Tangential MSK: Smooth and coordinated gait, no signs of tremors or involuntary orofacial movements Thought content: Bizarre Abstract reasoning, and computation: Impaired Description of associations: Impaired Description of abnormal or psychotic thoughts: Denies any suicidal or homicidal ideation. Does appear to respond to internal stimuli. Judgment: Poor Insight: Poor Orientation: Alert and orientated 3 Cognition: Grossly normal Recent and remote memory: Intact Attention span and concentration: Impaired secondary to thought process Fund of knowledge: Adequate Mood: "Fine" Affect: Flat with little reactivity Diagnoses Unspecified psychotic disorder. Rule out schizoaffective versus bipolar. Assessment and Plan Schizoaffective disorder: Continue Prolixin 15 mg QHS. Referral to long-term treatment. Discontinue Restoril. We'll start Ambien 5 mg nightly. Discussed risks, benefits, and potential side effects with patient. Disposition The patient will need further inpatient admission in order to treat his psychosis and further understand his behavior and the events leading to his admission as he is highly impaired, posing a danger to himself. Time Spent 15 minutes [id number]. Vital Signs Vital Signs Date Time Temp Pulse Resp B/P (MAP) Pulse Ox O2 Delivery O2 Flow Rate FiO2 07/16/19 06:11 97.9 60 14 125/78 (94) Room Air Current Medications Current Medications Medications (Trade) Dose Ordered Sig/Vivienne Route PRN Reason Start Time Stop Time Status Last Admin Dose Admin Acetaminophen (Tylenol Tab) 650 mg Q6HP PRN PO HEADACHE or DISCOMFORT 06/30/19 19:00 06/30/19 23:13 Al Hydrox/Mg Hydrox/Simethicone (Mylanta) 30 ml Q4HP PRN PO HEARTBURN/INDIGESTION 06/30/19 19:00 Clozapine (Clozaril) 12.5 mg QHS PO 07/12/19 21:00 07/15/19 19:34 DC Fluphenazine HCl (Prolixin) 5 mg BID PO 07/02/19 21:00 07/08/19 10:57 DC 07/08/19 08:51 Fluphenazine HCl (Prolixin) 5 mg QAM PO 07/09/19 09:00 07/15/19 19:34 DC 07/15/19 08:05 Fluphenazine HCl (Prolixin) 10 mg QHS PO 07/08/19 11:00 Cancel Fluphenazine HCl (Prolixin) 10 mg QHS PO 07/08/19 21:00 07/15/19 19:34 DC 07/14/19 21:51 Fluphenazine HCl (Prolixin) 15 mg QHS PO 07/15/19 21:00 07/15/19 21:06 Home Med (Med Rec Complete!) ASDIRECTED XX 06/30/19 19:30 06/30/19 19:19 DC Levothyroxine Sodium (Synthroid) 50 mcg DAILY@06 PO 07/02/19 06:00 07/16/19 06:05 Magnesium Hydroxide (Milk Of Magnesia) 30 ml DAILYPRN PRN PO CONSTIPATION 06/30/19 19:00 07/10/19 15:19 Nicotine (Nicoderm Cq 21mg) 1 patch DAILY TD 07/01/19 09:00 07/08/19 11:24 DC Temazepam (Restoril) 7.5 mg QHS PO 07/15/19 21:00 07/15/19 21:06 Trazodone HCl (Desyrel) 50 mg QHSP PRN PO INSOMNIA 06/30/19 19:00 07/14/19 21:51 Valacyclovir HCl (Valtrex) 500 mg TID PO 07/01/19 21:00 07/16/19 08:21 Valacyclovir HCl (Valtrex) 500 mg TID PO 07/02/19 16:00 07/02/19 13:05 DC Allergies Coded Allergies: No Known Allergies (Verified , 10/27/05) SUMMER BENITES DO Jul 16, 2019 09:52
[2019-07-16] MEDS ORDERED: TUBERCULIN PPD 5 UNITS/0.1 ML ID ONE ×2 (10:15→12:00)
[2019-07-16 16:39] VITALS: BP 103/76
[2019-07-16] MEDS: zolPIDEM TARTRATE 5 MG TAB PO PRN (21:13)
[2019-07-17] MEDS: LEVOTHYROXINE 50MCG TABLET (0.05MG) PO SCH (05:41)
[2019-07-17 06:50] VITALS: BP 124/83
[2019-07-17] MEDS: valACYclovir HCL 500 MG TAB PO SCH ×3 (08:03→21:19)
[2019-07-17 16:28] VITALS: BP 134/73
[2019-07-17] MEDS: zolPIDEM TARTRATE 5 MG TAB PO PRN (21:19)
[2019-07-18] MEDS: LEVOTHYROXINE 50MCG TABLET (0.05MG) PO SCH (06:28)
[2019-07-18 06:36] VITALS: BP 117/79
[2019-07-18] MEDS: valACYclovir HCL 500 MG TAB PO SCH ×3 (09:00→20:38)
[2019-07-18] MEDS ORDERED: PPD DOCUMENTATION ENTRY MISC ID SCH (10:00)
[2019-07-18] MEDS: DOCUSATE SODIUM 100 MG CAP PO SCH ×2 (11:50→20:38)
[2019-07-18] MEDS ORDERED: PPD DOCUMENTATION ENTRY MISC XX ONE (12:00)
[2019-07-18 16:37] VITALS: BP 124/58
[2019-07-18] MEDS: zolPIDEM TARTRATE 5 MG TAB PO PRN (20:37)
[2019-07-19] MEDS: LEVOTHYROXINE 50MCG TABLET (0.05MG) PO SCH (06:04)
[2019-07-19 06:39] VITALS: BP 103/59
[2019-07-19] MEDS: valACYclovir HCL 500 MG TAB PO SCH ×3 (08:20→20:46)
[2019-07-19] MEDS: DOCUSATE SODIUM 100 MG CAP PO SCH ×2 (08:20→20:45)
--- NOTE | 2019-07-19 09:51 | MHIPNPDOC ---
[facility] Progress Note Progress Note Demario Pierson Inpatient Progress Note eDmario Pierson Select Gender MRN: N/A Date of : MM/DD/YYYY Date of Service: 07/19/2019 History of Present Illness The patient is a 59-year-old man who was brought in for depression and suicidal ideation. He reportedly came to the ED after bringing himself to the police stating that he had done terrible things to people and had listed a list of unusual fairly bizarre way, stating that he had done horrible things to people. He reports suicidal thoughts with intention to kill himself with a car, but had asked for help. He was brought into the ER, assessed and admitted. The patient has a well-known history of psychotic disorder and presents in a fairly bizarre disorganized manner. When I attempted to interview the patient, he was fairly disorganized, unable to engage with a significant part of the interview and I was unable to focus him towards answering much of the questions as he spoke about bizarre topics such as fluids in the refrigerator and was unable to be focused to any great degree. Thus the information below is extracted from his psychosocial and other chart review. Interval History The patient is met with today with the environmental planner. He reports that he still is down having difficulties feeling that people are out to get him. He still thinks some food is poisoned by medication and that he has been given medication against his will. He still reports that he takes the Prolixin without any difficulty. He still has difficulty engaging, does not attend groups and stays in his room the majority of the day. The patient still demonstrates unusual ideation whenever asked about why he does not eat particular foods or drink water that is not bottled. He still reports he feels he is being poisoned. He has significant difficulty needing to be prompted for basic self-care and a ppears otherwise he would perish without being prompted to eat and to be able to attend to his own needs. Staff that have tried him before have noted that he is in a significantly worse condition than he has been prior. Review Of Systems The patient reports that he has "problems with his valacyclovir," however, he is unable to answer any more specific questions related to this. Psychotherapy None on this visit. Vital Signs Reviewed. Mental Status Examination General: Poor hygiene Speech: Sparse Thought processes: Tangential MSK: Smooth and coordinated gait, no signs of tremors or involuntary orofacial movements Thought content: Bizarre Abstract reasoning, and computation: Impaired Description of associations: Impaired Description of abnormal or psychotic thoughts: Denies any suicidal or homicidal ideation. Does appear to respond to internal stimuli. Judgment: Poor Insight: Poor Orientation: Alert and orientated 3 Cognition: Grossly normal Recent and remote memory: Intact Attention span and concentration: Impaired secondary to thought process Fund of knowledge: Adequate Mood: "The food has poison" Affect: Flat with little reactivity Diagnoses Unspecified psychotic disorder. Rule out schizoaffective versus bipolar. Assessment and Plan Schizoaffective disorder: Continue Prolixin 15 mg at night. Continue Ambien for now. We will start Wellbutrin 150 mg daily. Discussed with patient augmentation as possible schizoaffective with depressed type versus MDD with psychotic features. Will be referring to [facility] for long-term treatment, patient concurs with this. Disposition The patient will need further inpatient admission in order to treat his psychosis and further understand his behavior and the events leading to his admission as he is highly impaired, posing a danger to himself. Time Spent 15 minutes [id number] Vital Signs Vital Signs Date Time Temp Pulse Resp B/P (MAP) Pulse Ox O2 Delivery O2 Flow Rate FiO2 07/19/19 06:39 97.4 61 16 103/59 (74) 07/18/19 06:36 Room Air Current Medications Current Medications Medications (Trade) Dose Ordered Sig/Vivienne Route PRN Reason Start Time Stop Time Status Last Admin Dose Admin Acetaminophen (Tylenol Tab) 650 mg Q6HP PRN PO HEADACHE or DISCOMFORT 06/30/19 19:00 06/30/19 23:13 Al Hydrox/Mg Hydrox/Simethicone (Mylanta) 30 ml Q4HP PRN PO HEARTBURN/INDIGESTION 06/30/19 19:00 Clozapine (Clozaril) 12.5 mg QHS PO 07/12/19 21:00 07/15/19 19:34 DC Docusate Sodium (Colace) 100 mg BID PO 07/18/19 09:00 07/19/19 08:20 Fluphenazine HCl (Prolixin) 5 mg BID PO 07/02/19 21:00 07/08/19 10:57 DC 07/08/19 08:51 Fluphenazine HCl (Prolixin) 5 mg QAM PO 07/09/19 09:00 07/15/19 19:34 DC 07/15/19 08:05 Fluphenazine HCl (Prolixin) 10 mg QHS PO 07/08/19 11:00 Cancel Fluphenazine HCl (Prolixin) 10 mg QHS PO 07/08/19 21:00 07/15/19 19:34 DC 07/14/19 21:51 Fluphenazine HCl (Prolixin) 15 mg QHS PO 07/15/19 21:00 07/18/19 20:38 Home Med (Med Rec Complete!) ASDIRECTED XX 06/30/19 19:30 06/30/19 19:19 DC Levothyroxine Sodium (Synthroid) 50 mcg DAILY@06 PO 07/02/19 06:00 07/19/19 06:04 Magnesium Hydroxide (Milk Of Magnesia) 30 ml DAILYPRN PRN PO CONSTIPATION 06/30/19 19:00 07/10/19 15:19 Nicotine (Nicoderm Cq 21mg) 1 patch DAILY TD 07/01/19 09:00 07/08/19 11:24 DC Non-Formulary Medication ( See Comment Field Below ) SEE COMMENTS SECTION 1T@10 ID 07/18/19 10:00 07/16/19 10:47 DC Non-Formulary Medication ( See Comment Field Below ) SEE LABEL COMMENTS DAILY XX 07/16/19 09:00 07/16/19 11:49 DC Temazepam (Restoril) 7.5 mg QHS PO 07/15/19 21:00 07/16/19 19:53 DC 07/15/19 21:06 Trazodone HCl (Desyrel) 50 mg QHSP PRN PO INSOMNIA 06/30/19 19:00 07/14/19 21:51 Valacyclovir HCl (Valtrex) 500 mg TID PO 07/01/19 21:00 07/18/19 20:38 Valacyclovir HCl (Valtrex) 500 mg TID PO 07/02/19 16:00 07/02/19 13:05 DC Zolpidem Tartrate (Ambien) 5 mg QHSP PRN PO sleep 07/16/19 20:00 07/18/19 20:37 Allergies Coded Allergies: No Known Allergies (Verified , 10/27/05) SUMMER BENITES DO Jul 19, 2019 09:51
[2019-07-19] MEDS ORDERED: buPROPion **XL** TABLET 150MG (WELLBUTRIN XL) PO ONE (12:00)
[2019-07-19 15:29] VITALS: BP 121/82
[2019-07-19] MEDS: zolPIDEM TARTRATE 5 MG TAB PO PRN (20:45)
[2019-07-20] MEDS: LEVOTHYROXINE 50MCG TABLET (0.05MG) PO SCH (05:41)
[2019-07-20 06:54] VITALS: BP 106/65
[2019-07-20] MEDS: buPROPion **XL** TABLET 150MG (WELLBUTRIN XL) PO SCH (08:21)
[2019-07-20] MEDS: valACYclovir HCL 500 MG TAB PO SCH ×3 (08:21→20:33)
[2019-07-20] MEDS: DOCUSATE SODIUM 100 MG CAP PO SCH ×2 (08:22→20:48)
--- NOTE | 2019-07-20 09:34 | MHIPNPDOC ---
[facility] Progress Note Progress Note Demario Pierson Inpatient Progress Note Demario Pierson Select Gender MRN: N/A Date of : MM/DD/YYYY Date of Service: 07/20/2019 History of Present Illness The patient is a 59-year-old man who was brought in for depression and suicidal ideation. He reportedly came to the ED after bringing himself to the police stating that he had done terrible things to people and had listed a list of unusual fairly bizarre way, stating that he had done horrible things to people. He reports suicidal thoughts with intention to kill himself with a car, but had asked for help. He was brought into the ER, assessed and admitted. The patient has a well-known history of psychotic disorder and presents in a fairly bizarre disorganized manner. When I attempted to interview the patient, he was fairly disorganized, unable to engage with a significant part of the interview and I was unable to focus him towards answering much of the questions as he spoke about bizarre topics such as fluids in the refrigerator and was unable to be focused to any great degree. Thus the information below is extracted from his psychosocial and other chart review. Interval History The patient is met with today. He reports that he did not like the Wellbutrin but reports that he is not sure "why." He reports he has "head hypertension" but is unable to describe the symptoms. The patient still remained somewhat bizarre, but is more engaged since starting the Wellbutrin. He was able to dress himself and engage in short activities on the unit. He still has been taking that Prolixin but it appears to have little effect on his delusions that he is being poisoned. He still requires significant prompting in order to engage with any significant self-care, although he appears to be much more amenable with less resistance today. He is amenable to going to [place] and he has met with today with the project planner. Review Of Systems The patient reports no change in his bizarre symptoms as above, still reports no significant chest pain, palpitations, shortness of breath, cough, stomach issues, tremors, dizziness, headaches or other concerning side effects. Psychotherapy None on this visit. Vital Signs Reviewed. Mental Status Examination General: Improved hygiene Speech: Sparse Thought processes: Tangential MSK: Smooth and coordinated gait, no signs of tremors or involuntary orofacial movements Thought content: Bizarre Abstract reasoning, and computation: Impaired Description of associations: Impaired Description of abnormal or psychotic thoughts: Denies any suicidal or homicidal ideation. Does appear to respond to internal stimuli. Judgment: Poor Insight: Poor Orientation: Alert and orientated 3 Cognition: Grossly normal Recent and remote memory: Intact Attention span and concentration: Impaired secondary to thought process Fund of knowledge: Adequate Mood: "While my head has hypertension" Affect: Flat with little reactivity Diagnoses Unspecified psychotic disorder, schizoaffective versus MDD with psychotic features? Assessment and Plan Schizoaffective disorder versus MDD with psychotic features: Continue Prolixin 15 mg at night as well as Ambien. Continue Wellbutrin 150 mg daily, continuing referral for [facility]. Disposition The patient will need further inpatient admission in order to treat his psychosis and further understand his behavior and the events leading to his admission as he is highly impaired, posing a danger to himself. Time Spent 15 minutes [id number]. Vital Signs Vital Signs Date Time Temp Pulse Resp B/P (MAP) Pulse Ox O2 Delivery O2 Flow Rate FiO2 07/20/19 06:54 96.8 89 18 106/65 (79) 07/18/19 06:36 Room Air Current Medications Current Medications Medications (Trade) Dose Ordered Sig/Vivienne Route PRN Reason Start Time Stop Time Status Last Admin Dose Admin Acetaminophen (Tylenol Tab) 650 mg Q6HP PRN PO HEADACHE or DISCOMFORT 06/30/19 19:00 06/30/19 23:13 Al Hydrox/Mg Hydrox/Simethicone (Mylanta) 30 ml Q4HP PRN PO HEARTBURN/INDIGESTION 06/30/19 19:00 Bupropion HCl (Wellbutrin Xl) 150 mg DAILY PO 07/20/19 09:00 Clozapine (Clozaril) 12.5 mg QHS PO 07/12/19 21:00 07/15/19 19:34 DC Docusate Sodium (Colace) 100 mg BID PO 07/18/19 09:00 07/20/19 08:22 Fluphenazine HCl (Prolixin) 5 mg BID PO 07/02/19 21:00 07/08/19 10:57 DC 07/08/19 08:51 Fluphenazine HCl (Prolixin) 5 mg QAM PO 07/09/19 09:00 07/15/19 19:34 DC 07/15/19 08:05 Fluphenazine HCl (Prolixin) 10 mg QHS PO 07/08/19 11:00 Cancel Fluphenazine HCl (Prolixin) 10 mg QHS PO 07/08/19 21:00 07/15/19 19:34 DC 07/14/19 21:51 Fluphenazine HCl (Prolixin) 15 mg QHS PO 07/15/19 21:00 07/19/19 20:45 Home Med (Med Rec Complete!) ASDIRECTED XX 06/30/19 19:30 06/30/19 19:19 DC Levothyroxine Sodium (Synthroid) 50 mcg DAILY@06 PO 07/02/19 06:00 07/20/19 05:41 Magnesium Hydroxide (Milk Of Magnesia) 30 ml DAILYPRN PRN PO CONSTIPATION 06/30/19 19:00 07/10/19 15:19 Nicotine (Nicoderm Cq 21mg) 1 patch DAILY TD 07/01/19 09:00 07/08/19 11:24 DC Non-Formulary Medication ( See Comment Field Below ) SEE COMMENTS SECTION 1T@10 ID 07/18/19 10:00 07/16/19 10:47 DC Non-Formulary Medication ( See Comment Field Below ) SEE LABEL COMMENTS DAILY XX 07/16/19 09:00 07/16/19 11:49 DC Temazepam (Restoril) 7.5 mg QHS PO 07/15/19 21:00 07/16/19 19:53 DC 07/15/19 21:06 Trazodone HCl (Desyrel) 50 mg QHSP PRN PO INSOMNIA 06/30/19 19:00 07/14/19 21:51 Valacyclovir HCl (Valtrex) 500 mg TID PO 07/01/19 21:00 07/18/19 20:38 Valacyclovir HCl (Valtrex) 500 mg TID PO 07/02/19 16:00 07/02/19 13:05 DC Zolpidem Tartrate (Ambien) 5 mg QHSP PRN PO sleep 07/16/19 20:00 07/19/19 20:45 Allergies Coded Allergies: No Known Allergies (Verified , 10/27/05) SUMMER BENITES DO Jul 20, 2019 09:34
[2019-07-20 18:00] VITALS: BP 115/69
[2019-07-20] MEDS: zolPIDEM TARTRATE 5 MG TAB PO PRN (20:48)
[2019-07-21] MEDS: LEVOTHYROXINE 50MCG TABLET (0.05MG) PO SCH (05:56)
[2019-07-21 07:31] VITALS: BP 114/82
[2019-07-21] MEDS: buPROPion **XL** TABLET 150MG (WELLBUTRIN XL) PO SCH (09:00)
[2019-07-21] MEDS: DOCUSATE SODIUM 100 MG CAP PO SCH ×2 (09:00→20:28)
[2019-07-21] MEDS: valACYclovir HCL 500 MG TAB PO SCH ×3 (09:00→20:27)
--- NOTE | 2019-07-21 10:07 | MHIPNPDOC ---
[facility] Progress Note Progress Note Inpatient Progress Note Demario Pierson MRN: N/A Date of : N/A Date of Service: 07/21/2019 History of Present Illness The patient is a 59-year-old man who was brought in for depression and suicidal ideation. He reportedly came to the ED after bringing himself to the police stating that he had done terrible things to people and had listed a list of unusual fairly bizarre way, stating that he had done horrible things to people. He reports suicidal thoughts with intention to kill himself with a car, but had asked for help. He was brought into the ER, assessed and admitted. The patient has a well-known history of psychotic disorder and presents in a fairly bizarre disorganized manner. When I attempted to interview the patient, he was fairly disorganized, unable to engage with a significant part of the interview and I was unable to focus him towards answering much of the questions as he spoke about bizarre topics such as fluids in the refrigerator and was unable to be focused to any great degree. Thus the information below is extracted from his psychosocial and other chart review. Interval History The patient was met with today. He reports that he is more active, better engaged, although still bizarre. He wonders whether some of his medication is in fact Benadryl or other medication is substituted. He still believes that some of his food is being poisoned, however, he is engaging in better activities and is attending groups at times. He has become more able to question some of his thoughts, had no major behavioral problems overnight and attends to his needs better. He still is unable to directly answer any somatic symptoms, denying any one of them currently, but then subsequently stating very bizarre things such as "hypertension in my head" or "minerals sucking my brain out." Review Of Systems The patient reports no change in his bizarre symptoms as above, still reports no significant chest pain, palpitations, shortness of breath, cough, stomach issues, tremors, dizziness, headaches or other concerning side effects. Psychotherapy None on this visit. Vital Signs Reviewed. Mental Status Examination General: Improved hygiene Speech: Sparse Thought processes: Less tangential, more circumstantial. MSK: Smooth and coordinated gait, no signs of tremors or involuntary orofacial movements Thought content: Bizarre Abstract reasoning, and computation: Impaired Description of associations: Impaired Description of abnormal or psychotic thoughts: Denies any suicidal or homicidal ideation. Does appear to respond to internal stimuli. Judgment: Poor Insight: Poor Orientation: Alert and orientated 3 Cognition: Grossly normal Recent and remote memory: Intact Attention span and concentration: Impaired secondary to thought process Fund of knowledge: Adequate Mood: "Fine." Affect: Flat with little reactivity Diagnoses Unspecified psychotic disorder, schizoaffective versus MDD with psychotic features? Assessment and Plan Schizoaffective disorder versus MDD with psychotic features: Increase Prolixin to 20 mg nightly and Wellbutrin to 300 mg nightly. Continue referral for [facility]. Disposition The patient will need further inpatient admission in order to treat his psychosis and further understand his behavior and the events leading to his admission as he is highly impaired, posing a danger to himself. Time Spent 15 minutes [id number]. Friday Vital Signs Vital Signs Date Time Temp Pulse Resp B/P (MAP) Pulse Ox O2 Delivery O2 Flow Rate FiO2 07/21/19 07:31 96.6 63 14 114/82 (93) 07/18/19 06:36 Room Air Current Medications Current Medications Medications (Trade) Dose Ordered Sig/Vivienne Route PRN Reason Start Time Stop Time Status Last Admin Dose Admin Acetaminophen (Tylenol Tab) 650 mg Q6HP PRN PO HEADACHE or DISCOMFORT 06/30/19 19:00 06/30/19 23:13 Al Hydrox/Mg Hydrox/Simethicone (Mylanta) 30 ml Q4HP PRN PO HEARTBURN/INDIGESTION 06/30/19 19:00 Bupropion HCl (Wellbutrin Xl) 150 mg DAILY PO 07/20/19 09:00 Clozapine (Clozaril) 12.5 mg QHS PO 07/12/19 21:00 07/15/19 19:34 DC Docusate Sodium (Colace) 100 mg BID PO 07/18/19 09:00 07/20/19 20:48 Fluphenazine HCl (Prolixin) 5 mg BID PO 07/02/19 21:00 07/08/19 10:57 DC 07/08/19 08:51 Fluphenazine HCl (Prolixin) 5 mg QAM PO 07/09/19 09:00 07/15/19 19:34 DC 07/15/19 08:05 Fluphenazine HCl (Prolixin) 10 mg QHS PO 07/08/19 11:00 Cancel Fluphenazine HCl (Prolixin) 10 mg QHS PO 07/08/19 21:00 07/15/19 19:34 DC 07/14/19 21:51 Fluphenazine HCl (Prolixin) 15 mg QHS PO 07/15/19 21:00 07/20/19 20:49 Home Med (Med Rec Complete!) ASDIRECTED XX 06/30/19 19:30 06/30/19 19:19 DC Levothyroxine Sodium (Synthroid) 50 mcg DAILY@06 PO 07/02/19 06:00 07/21/19 05:56 Magnesium Hydroxide (Milk Of Magnesia) 30 ml DAILYPRN PRN PO CONSTIPATION 06/30/19 19:00 07/10/19 15:19 Nicotine (Nicoderm Cq 21mg) 1 patch DAILY TD 07/01/19 09:00 07/08/19 11:24 DC Non-Formulary Medication ( See Comment Field Below ) SEE COMMENTS SECTION 1T@10 ID 07/18/19 10:00 07/16/19 10:47 DC Non-Formulary Medication ( See Comment Field Below ) SEE LABEL COMMENTS DAILY XX 07/16/19 09:00 07/16/19 11:49 DC Temazepam (Restoril) 7.5 mg QHS PO 07/15/19 21:00 07/16/19 19:53 DC 07/15/19 21:06 Trazodone HCl (Desyrel) 50 mg QHSP PRN PO INSOMNIA 06/30/19 19:00 07/14/19 21:51 Valacyclovir HCl (Valtrex) 500 mg TID PO 07/01/19 21:00 07/18/19 20:38 Valacyclovir HCl (Valtrex) 500 mg TID PO 07/02/19 16:00 07/02/19 13:05 DC Zolpidem Tartrate (Ambien) 5 mg QHSP PRN PO sleep 07/16/19 20:00 07/20/19 20:48 Allergies Coded Allergies: No Known Allergies (Verified , 10/27/05) SUMMER BENITES DO Jul 21, 2019 10:07
--- NOTE | 2019-07-21 10:34 | ECGEPIP ---
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
--- NOTE | 2019-07-21 12:42 | HPEPDOC ---
General Date of Admission Jun 30, 2019 at 18:59 Date of Service: Jul 21, 2019 Attending Physician: MANDY MICHAEL MD Chief Complaint The patient is a 59-year-old male admitted with a reason for visit of Unspecified Mood Disorder. Source: Patient, RN/MD, RN notes reviewed Exam Limitations: No limitations Timing/Duration: Week(s) Severity: Mild Associated Symptoms: Denies Symptoms History of Present Illness Consultation Medical as Patient referred by Inpatient Mental Health Unit: Physical Examination 59 year old male seen today in examination room on Inpatient mental health unit for his physical examination for medical clearance by Nurse Practitioner Missy price. He is complaining of heart palpitation, and constipation at this time. He has significant medical history of bipolar disorder, schizophrenia, suicidal ideation for which is admitted for at [facility], herpes virus, hypothyroidism not controlled or therapeutic on levothyroxine 50 mcg daily and situational disturbance which is affected by his thyroxine hormone level being elevated to 11.2 on July 01, 2019 which increased significantly from his day of admission with his TSH being 9.360 on June 30, 2019. He denies chest pain, nausea, vomiting, dizziness, and headache. . Home Medications Scheduled Valacyclovir HCl (Valacyclovir) 1,000 Mg Tablet, 1 GM PO TID, (Reported) PATIENT STATES THIS IS CAUSING ITCHING AND DIARRHEA AND IS QUESTIONING IF THIS CAN BE SWITCHED Allergies Coded Allergies: No Known Allergies (Verified , 10/27/05) Past Medical History Medical History See HPI Surgical History stitches in head in 3rd grade due to head trauma Family History Significant Family History: Hypertension Social History * Smoker: current smoker, cigarettes Alcohol: Denies Drugs: prescription drugs Recent Travel/Sick Contacts: Denies: Recent travel, Recent sick contacts Psychosocial History: Anxiety, Bipolar, Decreased mood, [place] SI and HI, Depression, Prior suicide attempt, Schizophrenia A-FIB/CHADSVASC A-FIB History Current/History of A-Fib/PAF?: No Review of Systems Eyes: Reports: Pain ENT: Denies: Head Aches, Ear Pain, Dysphagia, Sinus Congestion, Post Nasal Drip, Sore Throat, Epistaxis, Other Symptoms Skin: Reports: Itching, Dry; Denies: Rash, Lesions, Jaundice, Bruising, Breakdown, Nail Changes, Other Pulmonary: Reports: Cough Cardiovascular: Reports: Palpitations Gastrointestinal: Reports: Abdominal Pain, Constipation Genitourinary: Denies: Dysuria, Frequency, Incontinence, Hematuria, Retention, Other Symptoms Hematologic: Denies: Bruising, Bleeding Excessively, Petecchia, Purpura, Enlarged Lymph Nodes, Other Hematologic Endocrine: Denies: Polydipsia, Polyphagia, Polyuria, Heat Intolerance, Cold Intolerance, Other Endocrine Sx Musculoskeletal: Denies: Neck Pain, Back Pain, Shoulder Pain, Arm Pain, Hand Pain, Leg Pain, Foot Pain, Joint Pain, Muscle Pain, Spasms, Other Symptoms Neurological: Denies: Weakness, Numbness, Incoordination, Change in speech, Confusion, Seizures, Other Symptoms Psych: Reports: Anxiety, Anger, Other Psych (insomnia) Physical Examination General Exam: Positive: Alert, Cooperative, Mild Distress Eye Exam: Positive: PERRLA, Conjunctiva & lids normal ENT Exam: Positive: Atraumatic, Mucous membr. moist/pink Neck Exam: Positive: Supple, +2 carotid pulse wo bruit Chest Exam: Positive: Clear to auscultation, Normal air movement Heart Exam: Positive: Rate Normal, Normal S1, Normal S2 Abdomen Exam: Positive: Normal bowel sounds, Soft, Tenderness (left lower quadrant) Extremity Exam: Positive: Normal pulses Skin Exam: Positive: Nl turgor and temperature, Pruritus, Other skin issue (dry skin) Neuro Exam: Positive: Normal Gait, Strength at 5/5 X4 ext, Sensation Intact, Cranial Nerves 3-12 NL Psych Exam: Positive: Anxiety, Other (psychosispatient thoughts sporadic and loose. No connectivity to current situation. He states the environment such as to when is causing his thyroid hormone level to be elevated, then jots to speaking on sound waves causing his thyroid level to be elevated or the reason he shouldn't take his thyroid medication when he was at home.) Vital Signs Vital Signs Date Time Temp Pulse Resp B/P (MAP) Pulse Ox O2 Delivery O2 Flow Rate FiO2 07/21/19 07:31 96.6 63 14 114/82 (93) 07/18/19 06:36 Room Air Problems (1) Suicidal ideation Status: Acute Response to Treatment: Progressing Discussed With: Patient Problem Specific Plan: Monitor Clinically, Repeat Labs Problem Text: 59 year old male seen today in examination room on Inpatient mental health unit for his physical examination for medical clearance by Nurse Practitioner Hospitalist. He has significant medical history of bipolar disorder, schizophrenia, suicidal ideation for which is admitted for at [facility], herpes virus, hypothyroidism not controlled or therapeutic on levothyroxine 50 mcg daily and situational disturbance which is affected by his thyroxine hormone level being elevated to 11.2 on July 01, 2019. He is complaining of heart palpitation, and constipation at this time Suicidal Ideation-Acute Plan Continue with Inpatient Mental Health Unit treatment plan of care CBC Constipation-Acute Continue bowel regimen Regular diet Hypothyroidism exacerbation-Acute on Chronic Recheck-Thyroid panel, CMP Monitor vital signs EKG Bipolar Disorder-Chronic Wellbutrin XL 150 mg Schizophrenia-Chronic Insomnia-Chronic Continue taking Trazodone and Ambien Herpes Virus-Chronic Continue taking Valtrex 50 mg Prognosis: Fair DVT Prophylaxis: Low Risk Discharge: Pending Thyroid panel if normal medically clear Plan / VTE VTE Prophylaxis Ordered?: No VTE Exclusion Mechanical Proph: Low Risk for VTE VTE Exclusion Pharmacological: At Low Risk for VTE Plan Diet: Continue Current Activity: Continue Current Medications: Bowel Regimen Diagnostics: Check Labs, EKG MENDY STARR Jul 21, 2019 12:42
[2019-07-21 15:54] LABS: BASO % 0.3 % (0.0-1.0); EOS # 0.3 10^3/uL (0.0-0.5); HEMOGLOBIN 14.4 g/dl (13.5-17.5); LYMPH # 3.1 10^3/uL (1.5-5.0); LYMPH % 34.7 % (24.0-44.0); MEAN CORPUSCULAR HEMOGLOBIN 31.3 pg (27.0-33.0); MEAN CORPUSCULAR HGB CONC 33.5 g/dl (32.0-36.5); MEAN CORPUSCULAR VOLUME 93.5 fl (80.0-96.0); MONO # 0.9 10^3/uL (0.0-0.8); MONO % 10.2 % (0.0-5.0); NEUTROPHILS # 4.7 10^3/uL (1.5-8.5); NEUTROPHILS % 51.5 % (36.0-66.0); PLATELET COUNT, AUTOMATED 336 10^3/uL (150-450)
[2019-07-21 16:14] LABS: ALBUMIN 3.8 GM/DL (3.2-5.2); ALT/SGPT 30 U/L (12-78); BILIRUBIN,TOTAL 0.2 MG/DL (0.2-1.0); BLOOD UREA NITROGEN 22 MG/DL (7-18); CALCIUM LEVEL 9.2 MG/DL (8.8-10.2); CARBON DIOXIDE LEVEL 33 MEQ/L (21-32); CHLORIDE LEVEL 104 MEQ/L (98-107); CREATININE FOR GFR 0.91 MG/DL (0.70-1.30); FREE T3 2.4 PG/ML (2.2-4.0); FREE T4 0.75 NG/DL (0.76-1.46); GLOMERULAR FILTRATION RATE > 60.0 (>49); GLUCOSE, FASTING 82 MG/DL (70-100); POTASSIUM SERUM 4.3 MEQ/L (3.5-5.1); SODIUM LEVEL 140 MEQ/L (136-145); TOTAL PROTEIN 7.1 GM/DL (6.4-8.2)
[2019-07-21 17:50] VITALS: BP 137/77
[2019-07-21] MEDS: zolPIDEM TARTRATE 5 MG TAB PO PRN (20:28)
[2019-07-22] MEDS: LEVOTHYROXINE 50MCG TABLET (0.05MG) PO SCH (05:51)
[2019-07-22 06:34] VITALS: BP 104/69
[2019-07-22] MEDS: valACYclovir HCL 500 MG TAB PO SCH (09:00)
[2019-07-22] MEDS: DOCUSATE SODIUM 100 MG CAP PO SCH ×2 (09:00→20:48)
[2019-07-22] MEDS: buPROPion **XL** TABLET 150MG (WELLBUTRIN XL) PO SCH (09:00)
--- NOTE | 2019-07-22 10:20 | MHIPNPDOC ---
[facility] Progress Note Progress Note Demario Pierson Inpatient Progress Note Demario Pierson Select Gender MRN: N/A Date of : MM/DD/YYYY Date of Service: 07/22/2019 History of Present Illness The patient is a 59-year-old man who was brought in for depression and suicidal ideation. He reportedly came to the ED after bringing himself to the police stating that he had done terrible things to people and had listed a list of unusual fairly bizarre way, stating that he had done horrible things to people. He reports suicidal thoughts with intention to kill himself with a car, but had asked for help. He was brought into the ER, assessed and admitted. The patient h as a well-known history of psychotic disorder and presents in a fairly bizarre disorganized manner. When I attempted to interview the patient, he was fairly disorganized, unable to engage with a significant part of the interview and I was unable to focus him towards answering much of the questions as he spoke about bizarre topics such as fluids in the refrigerator and was unable to be focused to any great degree. Thus the information below is extracted from his psychosocial and other chart review. Interval History The patient is met with today. He reports that he is "less guilty." He reports less feelings of guilt and his delusions of his reported crimes have begun to vanish more since the Wellbutrin was increased. He reports that he still has trouble thinking that his Prolixin is Benadryl and wonders whether his paranoia is real or whether it is part of a delusion. The patient is part of the lockout as he does have a tendency to sleep in his bed the majority of the day. He's been attending groups, more active on the unit, and better engaged. He meets readily with this provider. No major behavioral problems overnight. Review Of Systems The patient reports no change in his bizarre symptoms as above, still reports no significant chest pain, palpitations, shortness of breath, cough, stomach issues, tremors, dizziness, headaches or other concerning side effects. Psychotherapy None on this visit. Vital Signs Reviewed. Mental Status Examination General: Improved hygiene Speech: Improved Thought processes: Less tangential, more circumstantial. MSK: Smooth and coordinated gait, no signs of tremors or involuntary orofacial movements Thought content: Bizarre Abstract reasoning, and computation: Impaired Description of associations: Impaired Description of abnormal or psychotic thoughts: Denies any suicidal or homicidal ideation. Does appear to respond to internal stimuli. Judgment: Poor Insight: Mildly improved. Orientation: Alert and orientated 3 Cognition: Grossly normal Recent and remote memory: Intact Attention span and concentration: Intact Fund of knowledge: Adequate Mood: "Okay." Affect: Flat with little reactivity Diagnoses MDD with psychotic features. Assessment and Plan MDD with psychotic features: Continue Prolixin 20 mg daily, Wellbutrin 300 mg daily. [facility] Disposition The patient will need further inpatient admission in order to treat his psychosis and further understand his behavior and the events leading to his admission as he is highly impaired, posing a danger to himself. Time Spent 20 minutes [id number]. Vital Signs Vital Signs Date Time Temp Pulse Resp B/P (MAP) Pulse Ox O2 Delivery O2 Flow Rate FiO2 07/22/19 06:34 99.0 65 14 104/69 (81) 07/21/19 17:50 97 Room Air Laboratory Data 24H Labs Laboratory Tests 2 07/21/19 15:32: Immature Granulocyte % (Auto) 0.3, Neutrophils (%) (Auto) 51.5, Lymphocytes (%) (Auto) 34.7, Monocytes (%) (Auto) 10.2H, Eosinophils (%) (Auto) 3.0, Basophils (%) (Auto) 0.3, Neutrophils # (Auto) 4.7, Lymphocytes # (Auto) 3.1, Monocytes # (Auto) 0.9H, Eosinophils # (Auto) 0.3, Basophils # (Auto) 0.0, Nucleated Red Blood Cells % (auto) 0.0, Anion Gap 3L, Glomerular Filtration Rate > 60.0, Calcium Level 9.2, Total Bilirubin 0.2, Aspartate Amino Transf (AST/SGOT) 12, Alanine Aminotransferase (ALT/SGPT) 30, Alkaline Phosphatase 105, Total Protein 7.1, Albumin 3.8, Albumin/Globulin Ratio 1.15, Thyroid Stimulating Hormone (TSH) 14.100H, Free Thyroxine 0.75L, Free Triiodothyronine 2.4 CBC/BMP Laboratory Tests 07/21/19 15:32 Current Medications Current Medications Medications (Trade) Dose Ordered Sig/Vivienne Route PRN Reason Start Time Stop Time Status Last Admin Dose Admin Acetaminophen (Tylenol Tab) 650 mg Q6HP PRN PO HEADACHE or DISCOMFORT 06/30/19 19:00 06/30/19 23:13 Al Hydrox/Mg Hydrox/Simethicone (Mylanta) 30 ml Q4HP PRN PO HEARTBURN/INDIGESTION 06/30/19 19:00 Bupropion HCl (Wellbutrin Xl) 150 mg DAILY PO 07/20/19 09:00 07/21/19 15:13 DC Bupropion HCl (Wellbutrin Xl) 300 mg DAILY PO 07/22/19 09:00 Clozapine (Clozaril) 12.5 mg QHS PO 07/12/19 21:00 07/15/19 19:34 DC Docusate Sodium (Colace) 100 mg BID PO 07/18/19 09:00 07/21/19 20:28 Fluphenazine HCl (Prolixin) 5 mg BID PO 07/02/19 21:00 07/08/19 10:57 DC 07/08/19 08:51 Fluphenazine HCl (Prolixin) 5 mg QAM PO 07/09/19 09:00 07/15/19 19:34 DC 07/15/19 08:05 Fluphenazine HCl (Prolixin) 10 mg QHS PO 07/08/19 11:00 Cancel Fluphenazine HCl (Prolixin) 10 mg QHS PO 07/08/19 21:00 07/15/19 19:34 DC 07/14/19 21:51 Fluphenazine HCl (Prolixin) 15 mg QHS PO 07/15/19 21:00 07/21/19 15:13 DC 07/20/19 20:49 Fluphenazine HCl (Prolixin) 20 mg QHS PO 07/21/19 21:00 07/21/19 20:28 Home Med (Med Rec Complete!) ASDIRECTED XX 06/30/19 19:30 06/30/19 19:19 DC Levothyroxine Sodium (Synthroid) 50 mcg DAILY@06 PO 07/02/19 06:00 07/22/19 05:51 Magnesium Hydroxide (Milk Of Magnesia) 30 ml DAILYPRN PRN PO CONSTIPATION 06/30/19 19:00 07/10/19 15:19 Nicotine (Nicoderm Cq 21mg) 1 patch DAILY TD 07/01/19 09:00 07/08/19 11:24 DC Non-Formulary Medication ( See Comment Field Below ) SEE COMMENTS SECTION 1T@10 ID 07/18/19 10:00 07/16/19 10:47 DC Non-Formulary Medication ( See Comment Field Below ) SEE LABEL COMMENTS DAILY XX 07/16/19 09:00 07/16/19 11:49 DC Temazepam (Restoril) 7.5 mg QHS PO 07/15/19 21:00 07/16/19 19:53 DC 07/15/19 21:06 Trazodone HCl (Desyrel) 50 mg QHSP PRN PO INSOMNIA 06/30/19 19:00 07/14/19 21:51 Valacyclovir HCl (Valtrex) 500 mg TID PO 07/01/19 21:00 07/21/19 20:27 Valacyclovir HCl (Valtrex) 500 mg TID PO 07/02/19 16:00 07/02/19 13:05 DC Zolpidem Tartrate (Ambien) 5 mg QHSP PRN PO sleep 07/16/19 20:00 07/21/19 20:28 Allergies Coded Allergies: No Known Allergies (Verified , 10/27/05) SUMMER BENITES DO Jul 22, 2019 10:20
[2019-07-22 18:00] VITALS: BP 137/77
[2019-07-22] MEDS: zolPIDEM TARTRATE 5 MG TAB PO PRN (21:02)
[2019-07-23] MEDS: LEVOTHYROXINE 100MCG TABLET (0.1MG) PO SCH (06:03)
[2019-07-23 06:16] VITALS: BP 130/79
[2019-07-23] MEDS: buPROPion **XL** TABLET 150MG (WELLBUTRIN XL) PO SCH (09:00)
--- NOTE | 2019-07-23 10:03 | MHIPNPDOC ---
[facility] Progress Note Progress Note Demario Pierson Inpatient Progress Note Demario Pierson Select Gender MRN: N/A Date of : MM/DD/YYYY Date of Service: 07/23/2019 History of Present Illness The patient is a 59-year-old man who was brought in for depression and suicidal ideation. He reportedly came to the ED after bringing himself to the police stating that he had done terrible things to people and had listed a list of unusual fairly bizarre way, stating that he had done horrible things to people. He reports suicidal thoughts with intention to kill himself with a car, but had asked for help. He was brought into the ER, assessed and admitted. The patient has a well-known history of psychotic disorder and presents in a fairly bizarre disorganized manner. When I attempted to interview the patient, he was fairly disorganized, unable to engage with a significant part of the interview and I was unable to focus him towards answering much of the questions as he spoke about bizarre topics such as fluids in the refrigerator and was unable to be focused to any great degree. Thus the information below is extracted from his psychosocial and other chart review. Interval History The patient is met with today. He reports that he did not want to take the Wellbutrin as it made it difficult for him to sleep. He has been under room lockout and has been more engaged and less internally preoccupied. He still reports he feels that some of the medicine is poisoned or changed, however, he reports his sleep is doing better. He's had no major behavioral problems overnight. Has improved hygiene and appears to be more amenable to discussion. He is amenable to going to [facility] for long-term treatment. Review Of Systems The patient reports no change in his bizarre symptoms as above, still reports no significant chest pain, palpitations, shortness of breath, cough, stomach is sues, tremors, dizziness, headaches or other concerning side effects. Psychotherapy None on this visit. Vital Signs Reviewed. Mental Status Examination General: Fair hygiene Speech: More fluid Thought processes: Less tangential, more circumstantial. MSK: Smooth and coordinated gait, no signs of tremors or involuntary orofacial movements Thought content: Bizarre Abstract reasoning, and computation: Impaired Description of associations: Impaired Description of abnormal or psychotic thoughts: Denies any suicidal or homicidal ideation. Does appear to respond to internal stimuli. Judgment: Poor Insight: Mildly improved. Orientation: Alert and orientated 3 Cognition: Grossly normal Recent and remote memory: Intact Attention span and concentration: Intact Fund of knowledge: Adequate Mood: "Okay." Affect: Flat with little reactivity ExaminationChange general the fair hygiene changes speech 2 more fluid Diagnoses MDD with psychotic features. Assessment and Plan MDD with psychotic features: Continue Prolixin 20. Decrease Wellbutrin to 150 mg as patient reports insomnia. [facility]. Disposition The patient will need further inpatient admission in order to treat his psychosis and further understand his behavior and the events leading to his admission as he is highly impaired, posing a danger to himself. Time Spent 15 minutes [id number]. Vital Signs Vital Signs Date Time Temp Pulse Resp B/P (MAP) Pulse Ox O2 Delivery O2 Flow Rate FiO2 07/23/19 06:16 98.5 72 14 130/79 (96) 07/21/19 17:50 97 Room Air Current Medications Current Medications Medications (Trade) Dose Ordered Sig/Vivienne Route PRN Reason Start Time Stop Time Status Last Admin Dose Admin Acetaminophen (Tylenol Tab) 650 mg Q6HP PRN PO HEADACHE or DISCOMFORT 06/30/19 19:00 06/30/19 23:13 Al Hydrox/Mg Hydrox/Simethicone (Mylanta) 30 ml Q4HP PRN PO HEARTBURN/INDIGESTION 06/30/19 19:00 Bupropion HCl (Wellbutrin Xl) 150 mg DAILY PO 07/20/19 09:00 07/21/19 15:13 DC Bupropion HCl (Wellbutrin Xl) 300 mg DAILY PO 07/22/19 09:00 Clozapine (Clozaril) 12.5 mg QHS PO 07/12/19 21:00 07/15/19 19:34 DC Docusate Sodium (Colace) 100 mg BID PO 07/18/19 09:00 07/22/19 20:48 Fluphenazine HCl (Prolixin) 5 mg BID PO 07/02/19 21:00 07/08/19 10:57 DC 07/08/19 08:51 Fluphenazine HCl (Prolixin) 5 mg QAM PO 07/09/19 09:00 07/15/19 19:34 DC 07/15/19 08:05 Fluphenazine HCl (Prolixin) 10 mg QHS PO 07/08/19 11:00 Cancel Fluphenazine HCl (Prolixin) 10 mg QHS PO 07/08/19 21:00 07/15/19 19:34 DC 07/14/19 21:51 Fluphenazine HCl (Prolixin) 15 mg QHS PO 07/15/19 21:00 07/21/19 15:13 DC 07/20/19 20:49 Fluphenazine HCl (Prolixin) 20 mg QHS PO 07/21/19 21:00 07/22/19 20:48 Home Med (Med Rec Complete!) ASDIRECTED XX 06/30/19 19:30 06/30/19 19:19 DC Levothyroxine Sodium (Synthroid) 50 mcg DAILY@06 PO 07/02/19 06:00 07/22/19 11:20 DC 07/22/19 05:51 Levothyroxine Sodium (Synthroid) 100 mcg DAILY@06 PO 07/23/19 06:00 07/23/19 06:03 Magnesium Hydroxide (Milk Of Magnesia) 30 ml DAILYPRN PRN PO CONSTIPATION 06/30/19 19:00 07/10/19 15:19 Miscellaneous (Unresolved Clarification Entry) SEE LABEL COMMENTS DAILY XX 07/23/19 09:00 Nicotine (Nicoderm Cq 21mg) 1 patch DAILY TD 07/01/19 09:00 07/08/19 11:24 DC Non-Formulary Medication ( See Comment Field Below ) SEE COMMENTS SECTION 1T@10 ID 07/18/19 10:00 07/16/19 10:47 DC Non-Formulary Medication ( See Comment Field Below ) SEE LABEL COMMENTS DAILY XX 07/16/19 09:00 07/16/19 11:49 DC Temazepam (Restoril) 7.5 mg QHS PO 07/15/19 21:00 07/16/19 19:53 DC 07/15/19 21:06 Trazodone HCl (Desyrel) 50 mg QHSP PRN PO INSOMNIA 06/30/19 19:00 07/14/19 21:51 Valacyclovir HCl (Valtrex) 500 mg DAILY PO 07/23/19 09:00 Valacyclovir HCl (Valtrex) 500 mg TID PO 07/01/19 21:00 07/22/19 10:41 DC 07/21/19 20:27 Valacyclovir HCl (Valtrex) 500 mg TID PO 07/02/19 16:00 07/02/19 13:05 DC Zolpidem Tartrate (Ambien) 5 mg QHSP PRN PO sleep 07/16/19 20:00 07/22/19 21:02 Allergies Coded Allergies: No Known Allergies (Verified , 10/27/05) SUMMER BENITES DO Jul 23, 2019 10:03
[2019-07-23] MEDS: valACYclovir HCL 500 MG TAB PO SCH (10:22)
[2019-07-23] MEDS: DOCUSATE SODIUM 100 MG CAP PO SCH ×2 (10:22→22:05)
[2019-07-23] MEDS ORDERED: diphenhydrAMINE 25 MG CAP PO PRN (11:00)
[2019-07-23 18:00] VITALS: BP 117/85
[2019-07-24] MEDS: LEVOTHYROXINE 100MCG TABLET (0.1MG) PO SCH (06:05)
[2019-07-24 06:38] VITALS: BP 127/81
[2019-07-24] MEDS: valACYclovir HCL 500 MG TAB PO SCH (08:36)
[2019-07-24] MEDS: buPROPion **XL** TABLET 150MG (WELLBUTRIN XL) PO SCH (08:36)
[2019-07-24] MEDS: DOCUSATE SODIUM 100 MG CAP PO SCH ×2 (08:36→20:34)
[2019-07-24 16:08] VITALS: BP 125/74
[2019-07-24] MEDS: traZODone 50 MG TAB PO PRN (20:34)
[2019-07-25] MEDS: LEVOTHYROXINE 100MCG TABLET (0.1MG) PO SCH (05:54)
[2019-07-25 06:23] VITALS: BP 117/70
[2019-07-25] MEDS: buPROPion **XL** TABLET 150MG (WELLBUTRIN XL) PO SCH (08:07)
[2019-07-25] MEDS: DOCUSATE SODIUM 100 MG CAP PO SCH ×2 (08:07→21:22)
[2019-07-25] MEDS: valACYclovir HCL 500 MG TAB PO SCH (08:07)
[2019-07-25 13:15] LABS: FREE T4 0.81 NG/DL (0.76-1.46); THYROID STIMULATING HORMONE 8.99 uIU/ML (0.358-3.740)
[2019-07-25 16:18] VITALS: BP 111/68
[2019-07-25] MEDS: traZODone 50 MG TAB PO PRN (21:22)
[2019-07-26] MEDS: LEVOTHYROXINE 100MCG TABLET (0.1MG) PO SCH (06:18)
[2019-07-26 06:53] VITALS: BP 140/81
[2019-07-26] MEDS: valACYclovir HCL 500 MG TAB PO SCH (08:03)
[2019-07-26] MEDS: DOCUSATE SODIUM 100 MG CAP PO SCH ×2 (08:03→20:50)
[2019-07-26] MEDS: buPROPion **XL** TABLET 150MG (WELLBUTRIN XL) PO SCH (08:03)
[2019-07-26] MEDS ORDERED: buPROPion **XL** TABLET 150MG (WELLBUTRIN XL) PO ONE (12:30)
[2019-07-26 16:00] VITALS: BP 110/64
--- NOTE | 2019-07-26 19:25 | MHIPNPDOC ---
[facility] Progress Note Progress Note Demario Pierson Inpatient Progress Note Demario Pierson Select Gender MRN: N/A Date of : MM/DD/YYYY Date of Service: 07/26/2019 History of Present Illness The patient is a 59-year-old man who was brought in for depression and suicidal ideation. He reportedly came to the ED after bringing himself to the police stating that he had done terrible things to people and had listed a list of unusual fairly bizarre way, stating that he had done horrible things to people. He reports suicidal thoughts with intention to kill himself with a car, but had asked for help. He was brought into the ER, assessed and admitted. The patient has a well-known history of psychotic disorder and presents in a fairly bizarre disorganized manner. When I attempted to interview the patient, he was fairly disorganized, unable to engage with a significant part of the interview and I was unable to focus him towards answering much of the questions as he spoke about bizarre topics such as fluids in the refrigerator and was unable to be focused to any great degree. Thus the information below is extracted from his psychosocial and other chart review. Interval History The patient is met with today. He reports that he is doing somewhat better. He is less bizarre and less preoccupied. He reports he doesn't wish to take the Wellbutrin as 300 mg gave him trouble sleeping. He reports that he is more engaged. He has been outside of his room, engaged more actively. He did shave his head as he reported that he had dandruff. When offered dandruff shampoo, he did report that he was mildly upset as he felt he could have kept some of his hair. The patient has not had any notable bizarre episodes and has become increasingly more social, improving well over the weekend. He reports that he wishes to have the injectable Prolixin as he has done well on it in the past. Of fered patient have Wellbutrin decreased as it did help him get more active. He notably still endorses some unusual symptoms to different providers. He is currently being worked up for his TSH. He makes unusual statements at times about chest pain, but states that it is only intermittent and that there is none at the time of my evaluation. Review Of Systems The patient reports no change in his bizarre symptoms as above, still reports no significant chest pain, palpitations, shortness of breath, cough, stomach issues, tremors, dizziness, headaches or other concerning side effects. Psychotherapy None on this visit. Vital Signs Reviewed. Mental Status Examination General: Good hygiene Speech: More fluid Thought processes: Less tangential, more circumstantial. MSK: Smooth and coordinated gait, no signs of tremors or involuntary orofacial movements Thought content: Bizarre Abstract reasoning, and computation: Impaired Description of associations: Impaired Description of abnormal or psychotic thoughts: Denies any suicidal or homicidal ideation. Denies auditory or visual hallucinations. Does appear to responding to internal stimuli. Judgment: Improving Insight: Improving Orientation: Alert and orientated 3 Cognition: Grossly normal Recent and remote memory: Intact Attention span and concentration: Intact Fund of knowledge: Adequate Mood: "Okay." Affect: More reactive Diagnoses MDD with psychotic features. Assessment and Plan MDD with psychotic features: Continue Prolixin 20. Decrease Wellbutrin to 150 mg as patient reports insomnia. Continue referral for [facility]. We will start Prolixin injectable tomorrow. Disposition The patient will need further inpatient stay in order to treat his psychosis and improve his mental state. He is amenable to the injectable, which could help him, having much lower chance of readmission and has done well on it in the past making mild improvement. Time Spent 15 minutes [id number]. Vital Signs Vital Signs Date Time Temp Pulse Resp B/P (MAP) Pulse Ox O2 Delivery O2 Flow Rate FiO2 07/26/19 16:00 98.0 68 17 110/64 (79) 07/26/19 13:04 Room Air 07/21/19 17:50 97 Current Medications Current Medications Medications (Trade) Dose Ordered Sig/Vivienne Route PRN Reason Start Time Stop Time Status Last Admin Dose Admin Acetaminophen (Tylenol Tab) 650 mg Q6HP PRN PO HEADACHE or DISCOMFORT 06/30/19 19:00 06/30/19 23:13 Al Hydrox/Mg Hydrox/Simethicone (Mylanta) 30 ml Q4HP PRN PO HEARTBURN/INDIGESTION 06/30/19 19:00 Bupropion HCl (Wellbutrin Xl) 150 mg DAILY PO 07/20/19 09:00 07/21/19 15:13 DC Bupropion HCl (Wellbutrin Xl) 150 mg DAILY PO 07/27/19 09:00 Bupropion HCl (Wellbutrin Xl) 300 mg DAILY PO 07/22/19 09:00 Clozapine (Clozaril) 12.5 mg QHS PO 07/12/19 21:00 07/15/19 19:34 DC Diphenhydramine HCl (Benadryl) 25 mg QHSP PRN PO sleep 07/23/19 11:00 07/23/19 22:05 Docusate Sodium (Colace) 100 mg BID PO 07/18/19 09:00 07/26/19 08:03 Fluphenazine HCl (Prolixin) 5 mg BID PO 07/02/19 21:00 07/08/19 10:57 DC 07/08/19 08:51 Fluphenazine HCl (Prolixin) 5 mg QAM PO 07/09/19 09:00 07/15/19 19:34 DC 07/15/19 08:05 Fluphenazine HCl (Prolixin) 10 mg QHS PO 07/08/19 11:00 Cancel Fluphenazine HCl (Prolixin) 10 mg QHS PO 07/08/19 21:00 07/15/19 19:34 DC 07/14/19 21:51 Fluphenazine HCl (Prolixin) 15 mg QHS PO 07/15/19 21:00 07/21/19 15:13 DC 07/20/19 20:49 Fluphenazine HCl (Prolixin) 20 mg QHS PO 07/21/19 21:00 07/25/19 21:22 Home Med (Med Rec Complete!) ASDIRECTED XX 06/30/19 19:30 06/30/19 19:19 DC Levothyroxine Sodium (Synthroid) 50 mcg DAILY@06 PO 07/02/19 06:00 07/22/19 11:20 DC 07/22/19 05:51 Levothyroxine Sodium (Synthroid) 100 mcg DAILY@06 PO 07/23/19 06:00 07/26/19 06:18 Magnesium Hydroxide (Milk Of Magnesia) 30 ml DAILYPRN PRN PO CONSTIPATION 06/30/19 19:00 07/10/19 15:19 Miscellaneous (Unresolved Clarification Entry) SEE LABEL COMMENTS DAILY XX 07/23/19 09:00 07/23/19 13:18 DC Nicotine (Nicoderm Cq 21mg) 1 patch DAILY TD 07/01/19 09:00 07/08/19 11:24 DC Non-Formulary Medication ( See Comment Field Below ) SEE COMMENTS SECTION 1T@10 ID 07/18/19 10:00 07/16/19 10:47 DC Non-Formulary Medication ( See Comment Field Below ) SEE LABEL COMMENTS DAILY XX 07/16/19 09:00 07/16/19 11:49 DC Temazepam (Restoril) 7.5 mg QHS PO 07/15/19 21:00 07/16/19 19:53 DC 07/15/19 21:06 Trazodone HCl (Desyrel) 50 mg QHSP PRN PO INSOMNIA 06/30/19 19:00 07/25/19 21:22 Valacyclovir HCl (Valtrex) 500 mg DAILY PO 07/23/19 09:00 07/26/19 08:03 Valacyclovir HCl (Valtrex) 500 mg TID PO 07/01/19 21:00 07/22/19 10:41 DC 07/21/19 20:27 Valacyclovir HCl (Valtrex) 500 mg TID PO 07/02/19 16:00 07/02/19 13:05 DC Zolpidem Tartrate (Ambien) 5 mg QHSP PRN PO sleep 07/16/19 20:00 07/23/19 10:57 DC 07/22/19 21:02 Allergies Coded Allergies: No Known Allergies (Verified , 10/27/05) SUMMER BENITES DO Jul 26, 2019 19:25
[2019-07-26] MEDS: traZODone 50 MG TAB PO PRN (21:45)
[2019-07-27] MEDS: LEVOTHYROXINE 100MCG TABLET (0.1MG) PO SCH (06:04)
[2019-07-27 06:32] VITALS: BP 128/81
[2019-07-27] MEDS: buPROPion **XL** TABLET 150MG (WELLBUTRIN XL) PO SCH (08:06)
[2019-07-27] MEDS: valACYclovir HCL 500 MG TAB PO SCH (08:07)
[2019-07-27] MEDS: DOCUSATE SODIUM 100 MG CAP PO SCH ×2 (08:07→20:54)
[2019-07-27] MEDS ORDERED: buPROPion **XL** TABLET 150MG (WELLBUTRIN XL) PO SCH (09:00)
--- NOTE | 2019-07-27 11:26 | MHIPNPDOC ---
[facility] Progress Note Progress Note Demario Pierson Inpatient Progress Note Demario Pierson Select Gender MRN: N/A Date of : MM/DD/YYYY Date of Service: 07/27/2019 History of Present Illness The patient is a 59-year-old man who was brought in for depression and suicidal ideation. He reportedly came to the ED after bringing himself to the police stating that he had done terrible things to people and had listed a list of unusual fairly bizarre way, stating that he had done horrible things to people. He reports suicidal thoughts with intention to kill himself with a car, but had asked for help. He was brought into the ER, assessed and admitted. The patient has a well-known history of psychotic disorder and presents in a fairly bizarre disorganized manner. When I attempted to interview the patient, he was fairly disorganized, unable to engage with a significant part of the interview and I was unable to focus him towards answering much of the questions as he spoke about bizarre topics such as fluids in the refrigerator and was unable to be focused to any great degree. Thus the information below is extracted from his psychosocial and other chart review. Interval History The patient is met what today. He has made significant improvements, becoming more able to discuss his situation. He no longer endorses any bizarre or paranoid delusions and has been feeling much improved. He is engaging in groups, hygiene much improved and is no longer isolating to his room. He has had no major behavioral problems. Reports he is feeling good. Discharge is now being planned for end of the week. Patient will no longer be sent to [place] and has been making good progress. No behavioral problems overnight. Review Of Systems The patient reports no change in his bizarre symptoms as above, still reports no significant chest pain, palpitations, shortness of breath, cough, stomach issues, tremors, dizziness, headaches or other concerning side effects. General: Denies fever or appetite changes Cardiovascular: Denies Chest pain or palpations GI: Denies Nausea, vomiting, or bowel changes Respiratory: Denies shortness of breath or cough Neuro: Denies dizziness, tremors Derm: Denies any rashes or pruritus : Denies dysuria or urinary dysfunction MSK: Denies any muscle tightness or stiffness HEENT: Denies any vision changes or headaches Heme/Lymph: denies any bruising or bleeding Endo: denies any cold/heat intolerance or water intake changes Psychotherapy None on this visit. Vital Signs Reviewed. Mental Status Examination General: Good hygiene Speech: Fluid Thought processes: Linear MSK: Smooth and coordinated gait, no signs of tremors or involuntary orofacial movements Thought content: No bizarreness noted Abstract reasoning, and computation: Impaired Description of associations: Impaired Description of abnormal or psychotic thoughts: Denies any suicidal or homicidal ideation. Denies auditory or visual hallucinations. Does appear to responding to internal stimuli. Judgment: Improving Insight: Improving Orientation: Alert and orientated 3 Cognition: Grossly normal Recent and remote memory: Intact Attention span and concentration: Intact Fund of knowledge: Adequate Mood: "Okay." Affect: More euthymic Diagnoses MDD with psychotic features. Assessment and Plan MDD with psychotic features: Continue Prolixin 20 mg. Discontinue Wellbutrin as unhelpful, we'll give Prolixin injection 25 mg. We will start Prolixin injectable tomorrow. Disposition The patient will be further observed and titrated on injectable before discharge on Friday of this week. Time Spent 15 minutes daily. Vital Signs Vital Signs Date Time Temp Pulse Resp B/P (MAP) Pulse Ox O2 Delivery O2 Flow Rate FiO2 07/27/19 09:40 Room Air 07/27/19 06:32 97.1 79 12 128/81 (97) 07/21/19 17:50 97 Current Medications Current Medications Medications (Trade) Dose Ordered Sig/Vivienne Route PRN Reason Start Time Stop Time Status Last Admin Dose Admin Acetaminophen (Tylenol Tab) 650 mg Q6HP PRN PO HEADACHE or DISCOMFORT 06/30/19 19:00 06/30/19 23:13 Al Hydrox/Mg Hydrox/Simethicone (Mylanta) 30 ml Q4HP PRN PO HEARTBURN/INDIGESTION 06/30/19 19:00 Bupropion HCl (Wellbutrin Xl) 150 mg DAILY PO 07/20/19 09:00 07/21/19 15:13 DC Bupropion HCl (Wellbutrin Xl) 150 mg DAILY PO 07/27/19 09:00 Bupropion HCl (Wellbutrin Xl) 300 mg DAILY PO 07/22/19 09:00 Clozapine (Clozaril) 12.5 mg QHS PO 07/12/19 21:00 07/15/19 19:34 DC Diphenhydramine HCl (Benadryl) 25 mg QHSP PRN PO sleep 07/23/19 11:00 07/23/19 22:05 Docusate Sodium (Colace) 100 mg BID PO 07/18/19 09:00 07/27/19 08:07 Fluphenazine HCl (Prolixin) 5 mg BID PO 07/02/19 21:00 07/08/19 10:57 DC 07/08/19 08:51 Fluphenazine HCl (Prolixin) 5 mg QAM PO 07/09/19 09:00 07/15/19 19:34 DC 07/15/19 08:05 Fluphenazine HCl (Prolixin) 10 mg QHS PO 07/08/19 11:00 Cancel Fluphenazine HCl (Prolixin) 10 mg QHS PO 07/08/19 21:00 07/15/19 19:34 DC 07/14/19 21:51 Fluphenazine HCl (Prolixin) 15 mg QHS PO 07/15/19 21:00 07/21/19 15:13 DC 07/20/19 20:49 Fluphenazine HCl (Prolixin) 20 mg QHS PO 07/21/19 21:00 07/26/19 20:51 Home Med (Med Rec Complete!) ASDIRECTED XX 06/30/19 19:30 06/30/19 19:19 DC Levothyroxine Sodium (Synthroid) 50 mcg DAILY@06 PO 07/02/19 06:00 07/22/19 11:20 DC 07/22/19 05:51 Levothyroxine Sodium (Synthroid) 100 mcg DAILY@06 PO 07/23/19 06:00 07/27/19 06:04 Magnesium Hydroxide (Milk Of Magnesia) 30 ml DAILYPRN PRN PO CONSTIPATION 06/30/19 19:00 07/10/19 15:19 Miscellaneous (Unresolved Clarification Entry) SEE LABEL COMMENTS DAILY XX 07/23/19 09:00 07/23/19 13:18 DC Nicotine (Nicoderm Cq 21mg) 1 patch DAILY TD 07/01/19 09:00 07/08/19 11:24 DC Non-Formulary Medication ( See Comment Field Below ) SEE COMMENTS SECTION 1T@10 ID 07/18/19 10:00 07/16/19 10:47 DC Non-Formulary Medication ( See Comment Field Below ) SEE LABEL COMMENTS DAILY XX 07/16/19 09:00 07/16/19 11:49 DC Temazepam (Restoril) 7.5 mg QHS PO 07/15/19 21:00 07/16/19 19:53 DC 07/15/19 21:06 Trazodone HCl (Desyrel) 50 mg QHSP PRN PO INSOMNIA 06/30/19 19:00 07/26/19 21:45 Valacyclovir HCl (Valtrex) 500 mg DAILY PO 07/23/19 09:00 07/27/19 08:07 Valacyclovir HCl (Valtrex) 500 mg TID PO 07/01/19 21:00 07/22/19 10:41 DC 07/21/19 20:27 Valacyclovir HCl (Valtrex) 500 mg TID PO 07/02/19 16:00 07/02/19 13:05 DC Zolpidem Tartrate (Ambien) 5 mg QHSP PRN PO sleep 07/16/19 20:00 07/23/19 10:57 DC 07/22/19 21:02 Allergies Coded Allergies: No Known Allergies (Verified , 10/27/05) SUMMER BENITES DO Jul 27, 2019 11:26
[2019-07-27] MEDS ORDERED: fluPHENAZine DECAN 25MG/ML 5ML VIAL (J2680) IM ONE (13:00)
[2019-07-27 16:09] VITALS: BP 116/76
[2019-07-27] MEDS ORDERED: SENOKOT S TAB PO PRN (17:30)
[2019-07-27] MEDS ORDERED: hydrOXYzine 25 MG TAB PO PRN (17:30)
[2019-07-27] MEDS: traZODone 50 MG TAB PO PRN (20:55)
[2019-07-28] MEDS: LEVOTHYROXINE 100MCG TABLET (0.1MG) PO SCH (06:29)
[2019-07-28 06:32] VITALS: BP 106/70
[2019-07-28] MEDS: DOCUSATE SODIUM 100 MG CAP PO SCH ×2 (08:38→21:02)
[2019-07-28] MEDS: valACYclovir HCL 500 MG TAB PO SCH (08:38)
[2019-07-28] MEDS ORDERED: COAL TAR 1% SHAMPOO 180 ML BTL TOP PRN (09:00)
[2019-07-28] MEDS ORDERED: KETOCONAZOLE 2% CREAM TOP SCH (09:00)
[2019-07-28] MEDS ORDERED: COAL TAR 1% SHAMPOO 180 ML BTL TOP SCH (09:00)
[2019-07-28] MEDS: KETOCONAZOLE 2% CREAM TOP SCH (10:23)
--- NOTE | 2019-07-28 11:53 | MHIPNPDOC ---
[facility] Progress Note Progress Note Inpatient Progress Note Demario Pierson MRN: N/A Date of : N/A Date of Service: 07/28/2019 History of Present Illness The patient is a 59-year-old man who was brought in for depression and suicidal ideation. He reportedly came to the ED after bringing himself to the police stating that he had done terrible things to people and had listed a list of unusual fairly bizarre way, stating that he had done horrible things to people. He reports suicidal thoughts with intention to kill himself with a car, but had asked for help. He was brought into the ER, assessed and admitted. The patient has a well-known history of psychotic disorder and presents in a fairly bizarre disorganized manner. When I attempted to interview the patient, he was fairly disorganized, unable to engage with a significant part of the interview and I was unable to focus him towards answering much of the questions as he spoke about bizarre topics such as fluids in the refrigerator and was unable to be focused to any great degree. Thus the information below is extracted from his psychosocial and other chart review. Interval History The patient is met with today. He reports that he is doing much better. He is well dressed, well groomed and no longer bizarre or confused. He reports that he feels much improved and that he has been attending groups social and able to attend to his needs. He no longer professes the bizarre thoughts about crimes that he had reportedly not committed and reports that he is feeling much improved since the injection of Prolixin yesterday. No major behavioral problems overnight. Nursing staff support a strong improvement. Review Of Systems General: Denies fever or appetite changes Cardiovascular: Denies Chest pain or palpations GI: Denies Nausea, vomiting, or bowel changes Respiratory: Denies shortness of breath or cough Neuro: Denies dizziness, tremors Derm: Denies any rashes or pruritus : Denies dysuria or urinary dysfunction MSK: Denies any muscle tightness or stiffness HEENT: Denies any vision changes or headaches Heme/Lymph: denies any bruising or bleeding Endo: denies any cold/heat intolerance or water intake changes Psychotherapy None on this visit. Vital Signs Reviewed. Mental Status Examination General: Good hygiene Speech: Fluid Thought processes: Linear MSK: Smooth and coordinated gait, no signs of tremors or involuntary orofacial movements Thought content: No bizarreness noted Abstract reasoning, and computation: Impaired Description of associations: Impaired Description of abnormal or psychotic thoughts: Denies any suicidal or homicidal ideation. Denies auditory or visual hallucinations. Does appear to responding to internal stimuli. Judgment: Improving Insight: Improving Orientation: Alert and orientated 3 Cognition: Grossly normal Recent and remote memory: Intact Attention span and concentration: Intact Fund of knowledge: Adequate Mood: "Okay." Affect: More euthymic Diagnoses MDD with psychotic features. Assessment and Plan MDD with psychotic features: Continue Prolixin 20 mg daily. Will continue Prolixin injection once he leaves. Disposition Discharge tomorrow. Time Spent 15 minutes [id number]. Friday Vital Signs Vital Signs Date Time Temp Pulse Resp B/P (MAP) Pulse Ox O2 Delivery O2 Flow Rate FiO2 07/28/19 09:57 Room Air 07/28/19 06:32 98.2 63 16 106/70 (82) Current Medications Current Medications Medications (Trade) Dose Ordered Sig/Vivienne Route PRN Reason Start Time Stop Time Status Last Admin Dose Admin Acetaminophen (Tylenol Tab) 650 mg Q6HP PRN PO HEADACHE or DISCOMFORT 06/30/19 19:00 06/30/19 23:13 Al Hydrox/Mg Hydrox/Simethicone (Mylanta) 30 ml Q4HP PRN PO HEARTBURN/INDIGESTION 06/30/19 19:00 Bupropion HCl (Wellbutrin Xl) 150 mg DAILY PO 07/20/19 09:00 07/21/19 15:13 DC Bupropion HCl (Wellbutrin Xl) 150 mg DAILY PO 07/27/19 09:00 07/27/19 12:55 DC Bupropion HCl (Wellbutrin Xl) 300 mg DAILY PO 07/22/19 09:00 07/27/19 17:26 DC Clozapine (Clozaril) 12.5 mg QHS PO 07/12/19 21:00 07/15/19 19:34 DC [place] Tar (Zetar Shampoo) SHAMPOO/LATHER DAILY TOP 07/28/19 09:00 07/28/19 08:50 DC [place] Tar (Zetar Shampoo) SHAMPOO/LATHER DAILY PRN TOP Dandruff management 07/28/19 09:00 Diphenhydramine HCl (Benadryl) 25 mg QHSP PRN PO sleep 07/23/19 11:00 07/23/19 22:05 Docusate Sodium (Colace) 100 mg BID PO 07/18/19 09:00 07/28/19 08:38 Fluphenazine HCl (Prolixin) 5 mg BID PO 07/02/19 21:00 07/08/19 10:57 DC 07/08/19 08:51 Fluphenazine HCl (Prolixin) 5 mg QAM PO 07/09/19 09:00 07/15/19 19:34 DC 07/15/19 08:05 Fluphenazine HCl (Prolixin) 10 mg QHS PO 07/08/19 11:00 Cancel Fluphenazine HCl (Prolixin) 10 mg QHS PO 07/08/19 21:00 07/15/19 19:34 DC 07/14/19 21:51 Fluphenazine HCl (Prolixin) 15 mg QHS PO 07/15/19 21:00 07/21/19 15:13 DC 07/20/19 20:49 Fluphenazine HCl (Prolixin) 20 mg QHS PO 07/21/19 21:00 07/27/19 20:54 Home Med (Med Rec Complete!) ASDIRECTED XX 06/30/19 19:30 06/30/19 19:19 DC Hydroxyzine HCl (Atarax) 25 mg QHSP PRN PO INSOMNIA 07/27/19 17:30 Ketoconazole (Nizoral) DAILY TOP 07/28/19 09:00 UNV Ketoconazole (Nizoral) Apply to scalp daily DAILY TOP 07/28/19 09:00 07/28/19 10:23 Levothyroxine Sodium (Synthroid) 50 mcg DAILY@06 PO 07/02/19 06:00 07/22/19 11:20 DC 07/22/19 05:51 Levothyroxine Sodium (Synthroid) 100 mcg DAILY@06 PO 07/23/19 06:00 07/28/19 06:29 Magnesium Hydroxide (Milk Of Magnesia) 30 ml DAILYPRN PRN PO CONSTIPATION 06/30/19 19:00 07/10/19 15:19 Miscellaneous (Unresolved Clarification Entry) SEE LABEL COMMENTS DAILY XX 07/23/19 09:00 07/23/19 13:18 DC Nicotine (Nicoderm Cq 21mg) 1 patch DAILY TD 07/01/19 09:00 07/08/19 11:24 DC Non-Formulary Medication ( See Comment Field Below ) SEE COMMENTS SECTION 1T@10 ID 07/18/19 10:00 07/16/19 10:47 DC Non-Formulary Medication ( See Comment Field Below ) SEE LABEL COMMENTS DAILY XX 07/16/19 09:00 07/16/19 11:49 DC Senna/Docusate Sodium (Senokot S) 1 tab BIDP PRN PO CONSTIPATION 07/27/19 17:30 Temazepam (Restoril) 7.5 mg QHS PO 07/15/19 21:00 07/16/19 19:53 DC 07/15/19 21:06 Trazodone HCl (Desyrel) 50 mg QHSP PRN PO INSOMNIA 06/30/19 19:00 07/27/19 20:55 Valacyclovir HCl (Valtrex) 500 mg DAILY PO 07/23/19 09:00 07/28/19 08:38 Valacyclovir HCl (Valtrex) 500 mg TID PO 07/01/19 21:00 07/22/19 10:41 DC 07/21/19 20:27 Valacyclovir HCl (Valtrex) 500 mg TID PO 07/02/19 16:00 07/02/19 13:05 DC Zolpidem Tartrate (Ambien) 5 mg QHSP PRN PO sleep 07/16/19 20:00 07/23/19 10:57 DC 07/22/19 21:02 Allergies Coded Allergies: No Known Allergies (Verified , 10/27/05) SUMMER BENITES DO Jul 28, 2019 11:53
[2019-07-28 16:52] VITALS: BP 112/78
[2019-07-28] MEDS: traZODone 50 MG TAB PO PRN (21:03)
[2019-07-29] MEDS: LEVOTHYROXINE 100MCG TABLET (0.1MG) PO SCH (05:25)
[2019-07-29 06:17] VITALS: BP 121/87
[2019-07-29 06:18] VITALS: BP 117/64
[2019-07-29] MEDS: KETOCONAZOLE 2% CREAM TOP SCH (08:04)
[2019-07-29] MEDS: DOCUSATE SODIUM 100 MG CAP PO SCH ×2 (08:06→20:03)
[2019-07-29] MEDS: valACYclovir HCL 500 MG TAB PO SCH (08:06)
--- NOTE | 2019-07-29 11:28 | MHIPNPDOC ---
[facility] Progress Note Progress Note Inpatient Progress Note Demario Pierson MRN: N/A Date of : N/A Date of Service: 07/29/2019 History of Present Illness The patient is a 59-year-old man who was brought in for depression and suicidal ideation. He reportedly came to the ED after bringing himself to the police stating that he had done terrible things to people and had listed a list of unusual fairly bizarre way, stating that he had done horrible things to people. He reports suicidal thoughts with intention to kill himself with a car, but had asked for help. He was brought into the ER, assessed and admitted. The patient has a well-known history of psychotic disorder and presents in a fairly bizarre disorganized manner. When I attempted to interview the patient, he was fairly disorganized, unable to engage with a significant part of the interview and I was unable to focus him towards answering much of the questions as he spoke about bizarre topics such as fluids in the refrigerator and was unable to be focused to any great degree. Thus the information below is extracted from his psychosocial and other chart review. Interval History The patient's met with this evening where he reports that he's doing very well. He feels that his Prolixin has been very helpful and he has gotten great improvement from it. He reports that he's amenable to staying on the injectable and that he feels pleased and happy to be going home tomorrow. He has made major improvement per nursing staff, attending groups regularly with good hygiene, engage very well in the groups with no bizarre ideation noted. He reports his thoughts are clear and that he's ready for discharge tomorrow. Review Of Systems General: Denies fever or appetite changes Cardiovascular: Denies Chest pain or palpations GI: Denies Nausea, vomiting, or bowel changes Respiratory: Denies shortness of breath or cough Neuro: Denies dizziness, tremors Derm: Denies any rashes or pruritus : Denies dysuria or urinary dysfunction MSK: Denies any muscle tightness or stiffness HEENT: Denies any vision changes or headaches Heme/Lymph: denies any bruising or bleeding Endo: denies any cold/heat intolerance or water intake changes Psychotherapy None on this visit. Vital Signs Reviewed. Mental Status Examination General: Well dressed with good hygiene Speech: Spontaneous and fluid Thought processes: Linear and logical MSK: Smooth and coordinated gait, no signs of tremors or involuntary orofacial movements Thought content: Future orientated Abstract reasoning, and computation: Intact Description of associations: Intact Description of abnormal or psychotic thoughts: Denies any suicidal or homicidal ideation. Denies any auditory or visual hallucinations. Does not appear to be responding to internal stimuli. Does not appear to be endorsing any bizarre or paranoid ideation. Judgment: fair Insight: fair Orientation: Alert and orientated 3 Cognition: Grossly normal Recent and remote memory: Intact Attention span and concentration: Intact Fund of knowledge: Adequate Mood: "okay" Affect: Euthymic with a full range Diagnoses MDD with psychotic features. Assessment and Plan MDD with psychotic features: Continue Prolixin 20 mg daily. Will continue Prolixin injection once he leaves. Disposition Discharge tomorrow. Time Spent 15 minutes [id number] Vital Signs Vital Signs Date Time Temp Pulse Resp B/P (MAP) Pulse Ox O2 Delivery O2 Flow Rate FiO2 07/29/19 07:40 Room Air 07/29/19 06:18 97.1 86 16 117/64 (81) Current Medications Current Medications Medications (Trade) Dose Ordered Sig/Vivienne Route PRN Reason Start Time Stop Time Status Last Admin Dose Admin Acetaminophen (Tylenol Tab) 650 mg Q6HP PRN PO HEADACHE or DISCOMFORT 06/30/19 19:00 06/30/19 23:13 Al Hydrox/Mg Hydrox/Simethicone (Mylanta) 30 ml Q4HP PRN PO HEARTBURN/INDIGESTION 06/30/19 19:00 Bupropion HCl (Wellbutrin Xl) 150 mg DAILY PO 07/20/19 09:00 07/21/19 15:13 DC Bupropion HCl (Wellbutrin Xl) 150 mg DAILY PO 07/27/19 09:00 07/27/19 12:55 DC Bupropion HCl (Wellbutrin Xl) 300 mg DAILY PO 07/22/19 09:00 07/27/19 17:26 DC Clozapine (Clozaril) 12.5 mg QHS PO 07/12/19 21:00 07/15/19 19:34 DC [place] (Zetar Shampoo) SHAMPOO/LATHER DAILY TOP 07/28/19 09:00 07/28/19 08:50 DC [place] (Zetar Shampoo) SHAMPOO/LATHER DAILY PRN TOP Dandruff management 07/28/19 09:00 07/28/19 20:46 Diphenhydramine HCl (Benadryl) 25 mg QHSP PRN PO sleep 07/23/19 11:00 07/23/19 22:05 Docusate Sodium (Colace) 100 mg BID PO 07/18/19 09:00 07/29/19 08:06 Fluphenazine HCl (Prolixin) 5 mg BID PO 07/02/19 21:00 07/08/19 10:57 DC 07/08/19 08:51 Fluphenazine HCl (Prolixin) 5 mg QAM PO 07/09/19 09:00 07/15/19 19:34 DC 07/15/19 08:05 Fluphenazine HCl (Prolixin) 10 mg QHS PO 07/08/19 11:00 Cancel Fluphenazine HCl (Prolixin) 10 mg QHS PO 07/08/19 21:00 07/15/19 19:34 DC 07/14/19 21:51 Fluphenazine HCl (Prolixin) 15 mg QHS PO 07/15/19 21:00 07/21/19 15:13 DC 07/20/19 20:49 Fluphenazine HCl (Prolixin) 20 mg QHS PO 07/21/19 21:00 07/28/19 21:02 Home Med (Med Rec Complete!) ASDIRECTED XX 06/30/19 19:30 06/30/19 19:19 DC Hydroxyzine HCl (Atarax) 25 mg QHSP PRN PO INSOMNIA 07/27/19 17:30 Ketoconazole (Nizoral) DAILY TOP 07/28/19 09:00 UNV Ketoconazole (Nizoral) Apply to scalp daily DAILY TOP 07/28/19 09:00 07/29/19 08:04 Levothyroxine Sodium (Synthroid) 50 mcg DAILY@06 PO 07/02/19 06:00 07/22/19 11:20 DC 07/22/19 05:51 Levothyroxine Sodium (Synthroid) 100 mcg DAILY@06 PO 07/23/19 06:00 07/29/19 05:25 Magnesium Hydroxide (Milk Of Magnesia) 30 ml DAILYPRN PRN PO CONSTIPATION 06/30/19 19:00 07/10/19 15:19 Miscellaneous (Unresolved Clarification Entry) SEE LABEL COMMENTS DAILY XX 07/23/19 09:00 07/23/19 13:18 DC Nicotine (Nicoderm Cq 21mg) 1 patch DAILY TD 07/01/19 09:00 07/08/19 11:24 DC Non-Formulary Medication ( See Comment Field Below ) SEE COMMENTS SECTION 1T@10 ID 07/18/19 10:00 07/16/19 10:47 DC Non-Formulary Medication ( See Comment Field Below ) SEE LABEL COMMENTS DAILY XX 07/16/19 09:00 07/16/19 11:49 DC Senna/Docusate Sodium (Senokot S) 1 tab BIDP PRN PO CONSTIPATION 07/27/19 17:30 Temazepam (Restoril) 7.5 mg QHS PO 07/15/19 21:00 07/16/19 19:53 DC 07/15/19 21:06 Trazodone HCl (Desyrel) 50 mg QHSP PRN PO INSOMNIA 06/30/19 19:00 07/28/19 21:03 Valacyclovir HCl (Valtrex) 500 mg DAILY PO 07/23/19 09:00 07/29/19 08:06 Valacyclovir HCl (Valtrex) 500 mg TID PO 07/01/19 21:00 07/22/19 10:41 DC 07/21/19 20:27 Valacyclovir HCl (Valtrex) 500 mg TID PO 07/02/19 16:00 07/02/19 13:05 DC Zolpidem Tartrate (Ambien) 5 mg QHSP PRN PO sleep 07/16/19 20:00 07/23/19 10:57 DC 07/22/19 21:02 Allergies Coded Allergies: No Known Allergies (Verified , 10/27/05) SUMEMR BENITES DO Jul 29, 2019 11:28
[2019-07-29 18:00] VITALS: BP 117/68
[2019-07-30] MEDS: LEVOTHYROXINE 100MCG TABLET (0.1MG) PO SCH (05:52)
[2019-07-30 07:00] VITALS: BP 139/80
[2019-07-30] MEDS: KETOCONAZOLE 2% CREAM TOP SCH (08:01)
[2019-07-30] MEDS: valACYclovir HCL 500 MG TAB PO SCH (08:01)
[2019-07-30] MEDS: DOCUSATE SODIUM 100 MG CAP PO SCH (08:01)
--- NOTE | 2019-07-30 09:07 | MHDSPDOC ---
[facility] Discharge Summary Discharge Summary DATE OF ADMISSION: Jun 30, 2019 at 18:59 DATE OF DISCHARGE: 07/30/19 Demario Pierson Discharge Demario Pierson Select Gender MRN: N/A Date of : MM/DD/YYYY Date of Service: 07/30/2019 Diagnoses MDD with psychotic features. History of Present Illness The patient is a 59-year-old man who was brought in for depression and suicidal ideation. He reportedly came to the ED after bringing himself to the police stating that he had done terrible things to people and had listed a list of unusual fairly bizarre way, stating that he had done horrible things to people. He reports suicidal thoughts with intention to kill himself with a car, but had asked for help. He was brought into the ER, assessed and admitted. The patient has a well-known history of psychotic disorder and presents in a fairly bizarre disorganized manner. When I attempted to interview the patient, he was fairly disorganized, unable to engage with a significant part of the interview and I was unable to focus him towards answering much of the questions as he spoke about bizarre topics such as fluids in the refrigerator and was unable to be focused to any great degree. Thus the information below is extracted from his psychosocial and other chart review. Consultants Involved Hospitalist/PCP screening Treatment and Progress On The Unit The patient was treated on the inpatient unit and tried on Prolixin, increased to a total of 20 mg nightly with positive effects. He was tried on Wellbutrin for possible MDD with psychotic features; however, he did not tolerate this well. Additionally, he was tried on a room lockout as he was not engaging with any therapeutic program and was making poor progress. Eventually, he began to improve his depression, subsided, he was more energetic, more able to care for himself with better hygiene. His delusional thoughts resolved and he was placed on Prolixin injectable 25 mg every 2 weeks with positive results. The patient had significant problems with hypothyroidism that was treated by the medical team. He requested to go and declined further voluntary admission. He did not meet involuntary criteria on the day of discharge as he was not suicidal or homicidal, was able to care for his own needs, participate actively in his discharge plan and his psychosis had resolved. Discharge Assessment A 59-year-old man with bizarre psychotic episode, possibly MDD with psychotic features. He's treated with large doses of neuroleptics that improved him significantly. He reportedly has done well on Prolixin in the past. Mental Status Examination General: Well dressed with good hygiene Speech: Spontaneous and fluid Thought processes: Linear and logical MSK: Smooth and coordinated gait, no signs of tremors or involuntary orofacial movements Thought content: Future orientated Abstract reasoning, and computation: Intact Description of associations: Intact Description of abnormal or psychotic thoughts: Denies any suicidal or homicidal ideation. Denies any auditory or visual hallucinations. Does not appear to be responding to internal stimuli. Does not appear to be endorsing any bizarre or paranoid ideation. Judgment: fair Insight: fair Orientation: Alert and orientated 3 Cognition: Grossly normal Recent and remote memory: Intact Attention span and concentration: Intact Fund of knowledge: Adequate Mood: "okay" Affect: Euthymic with a full range Follow Up The social work team worked during the predischarge meeting in order to evaluate for further issues of lethality address them fully before discharge. They worked on safety planning with the patient's family members in order to ensure that the patient will have a safe and effective discharge. Time Spent The amount of time spent in the coordination of care for this patient was approximately 30 minutes. Vital Signs/I&Os Vital Signs Date Time Temp Pulse Resp B/P (MAP) Pulse Ox O2 Delivery O2 Flow Rate FiO2 07/30/19 07:00 96.9 64 16 139/80 (99) 07/29/19 07:40 Room Air Medications Scheduled Fluphenazine Decanoate (Fluphenazine Decanoate) 25 Mg/1 Ml Vial, 1 ML IM Q2WK for thoughts for 30 Days, #4 Valacyclovir HCl (Valacyclovir) 1,000 Mg Tablet, 1 GM PO TID, (Reported) PATIENT STATES THIS IS CAUSING ITCHING AND DIARRHEA AND IS QUESTIONING IF THIS CAN BE SWITCHED [Administer] 1 INJ, 1 DOSE IM Q2WK for for thoughts Allergies Coded Allergies: No Known Allergies (Verified , 10/27/05) SUMMER BENITES DO Jul 30, 2019 09:07
[2019-07-30] MEDS ORDERED: FLUP25VL IM (09:16)
[2019-07-30] MEDS ORDERED: [UNRECOGNIZED DRUG - REMARK] IM (09:17)
== END 2019-07-30 15:30 | disposition home or self-care (01) | DRG 885 ==
LOC: M ED 15:19 → M ED INP 18:59 → M PSY 20:30
PROVIDERS: ADMIT Psychiatry & Neurology Psychiatry; ATTEND Psychiatry & Neurology Addiction Medicine
DX: F32.3 Major depressive disorder, single episode, severe with psychotic features (principal); F29 Unspecified psychosis not due to a substance or known physiological condition; J44.9 Chronic obstructive pulmonary disease, unspecified; F25.9 Schizoaffective disorder, unspecified; Z79.899 Other long term (current) drug therapy; E03.9 Hypothyroidism, unspecified; F17.210 Nicotine dependence, cigarettes, uncomplicated; B00.1 Herpesviral vesicular dermatitis; K59.00 Constipation, unspecified; R00.2 Palpitations; G47.00 Insomnia, unspecified

== ENCOUNTER 2021-02-14 11:01 | Inpatient (IN) | payer MEDICARE ==
[~2021-02-14 11:01] MED LIST changes: +FLUP2.5T12 PO; -FLUP25TA PO; +VALA1TAB5 PO; +[UNRECOGNIZED DRUG - REMARK] IM
[2021-02-14 12:07] LABS: HEMOGLOBIN 12.8 g/dl (13.5-17.5); MEAN CORPUSCULAR HEMOGLOBIN 30.8 pg (27.0-33.0); MEAN CORPUSCULAR HGB CONC 33.7 g/dl (32.0-36.5); MEAN CORPUSCULAR VOLUME 91.3 fl (80.0-96.0); PLATELET COUNT, AUTOMATED 325 10^3/uL (150-450); RED BLOOD COUNT 4.16 10^6/uL (4.30-6.10); WHITE BLOOD COUNT 10.3 10^3/uL (4.0-10.0)
[2021-02-14 12:24] LABS: AMPHETAMINES LEVEL URINE NEGATIVE (NEGATIVE); BARBITURATES URINE NEGATIVE (NEGATIVE); BENZODIAZEPINES URINE NEGATIVE (NEGATIVE); CANNABINOIDS URINE NEGATIVE (NEGATIVE); COCAINE METABOLITE URINE NEGATIVE (NEGATIVE); METHADONE URINE NEGATIVE (NEGATIVE); OPIATES URINE NEGATIVE (NEGATIVE); PHENCYCLIDINE URINE NEGATIVE (NEGATIVE)
[2021-02-14 12:53] LABS: ACETAMINOPHEN LEVEL < 2.0 UG/ML (10.0-30.0); ALBUMIN 3.8 GM/DL (3.2-5.2); ALT/SGPT 33 U/L (12-78); BILIRUBIN,DIRECT < 0.1 MG/DL (0.0-0.2); BILIRUBIN,TOTAL 0.3 MG/DL (0.2-1.0); BLOOD UREA NITROGEN 12 MG/DL (7-18); CARBON DIOXIDE LEVEL 28 MEQ/L (21-32); CHLORIDE LEVEL 105 MEQ/L (98-107); CREATININE FOR GFR 0.91 MG/DL (0.70-1.30); ETHYL ALCOHOL (ETHANOL) 0.007 % (0.000-0.010); GLOMERULAR FILTRATION RATE > 60.0 (>49); GLUCOSE, FASTING 113 MG/DL (70-100); POTASSIUM SERUM 3.8 MEQ/L (3.5-5.1); SALICYLATE LEVEL 3.8 MG/DL (5.0-30.0); SODIUM LEVEL 137 MEQ/L (136-145)
[2021-02-14] MEDS ORDERED: MAALOX 30 ML SUSP *UDC PO PRN (18:15)
[2021-02-14] MEDS ORDERED: ACETAMINOPHEN TAB 650MG DOSE (2X325MG) PO PRN (18:15)
[2021-02-14] MEDS ORDERED: OLANZapine ORAL DISINTEGRATING TAB 5MG PO PRN (18:15)
[2021-02-14 21:10] VITALS: BP 153/98
[2021-02-14] MEDS: LORazepam 1 MG TAB PO PRN (23:16)
[2021-02-15] MEDS: LORazepam 1 MG TAB PO PRN ×2 (03:31→12:36)
[2021-02-15] MEDS: fluPHENAZine 5MG TABLET PO SCH ×2 (09:00→20:35)
[2021-02-15] MEDS: NICOTINE 21MG/24HR 1 EA TRANSDERMAL TD SCH (09:00)
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
[2021-02-15 16:14] VITALS: BP 113/75
[2021-02-15] MEDS ORDERED: LORazepam 2 MG TAB PO SCH (18:00)
[2021-02-15] MEDS: LORazepam 2 MG TAB PO PRN (19:54)
[2021-02-15] MEDS: BENZTROPINE 0.5 MG TAB PO PRN ×2 (19:54→19:55)
--- NOTE | 2021-02-15 20:40 | CR ---
CONSULTATION DATE: 02/15/2021 REASON FOR CONSULTATION: Medical evaluation of inpatient psychiatric recipient. HISTORY OF PRESENT ILLNESS: Demario is a 60-year-old gentleman who has a past medical history of substance abuse, bipolar disorder, depression, schizophrenia, psychosis, who has had multiple inpatient psychiatric admissions over the years and has a history of hypothyroidism and hypertension. The patient was transferred from [facility] secondary making threatening gestures and abnormal fixation with having a herpes blood infection as well as a herpes infection of his left knee. It is difficult to speak with this individual as he becomes highly agitated and is manic. I could not get a clear history from him as he is only fixated on his herpes infection. ALLERGIES: No known drug allergies. CURRENT MEDICATIONS: 1. Prolixin Decanoate. 2. Lorazepam. 3. Haldol. 4. Cogentin. 5. Nicoderm. 6. Zyprexa. 7. Tylenol. 8. Trazodone. PAST MEDICAL HISTORY: The patient's past medical history is significant for: 1. Hypothyroidism. 2. Hypertension. PAST SURGICAL HISTORY: The patient's past surgical history is unknown. FAMILY HISTORY: The patient's family history is notable for hypertension and cancer in his mother. SOCIAL HISTORY: The patient lives alone. He is unemployed. He is an active tobacco user. He also has a history of crack cocaine use. REVIEW OF SYSTEMS: The patient's review of systems was difficult to obtain secondary to the patient's acute sorin. PHYSICAL EXAMINATION: Physical examination which in itself is limited as the patient is highly agitated. VITAL SIGNS: Temperature is 97.9, pulse is 86, respirations 14, blood pressure is 113/75, O2 sat is 96% on room air. GENERAL APPEARANCE: The patient is of active sorin. SKIN: Intact. Warm to touch. No jaundice or rash are noticed. HEENT: His head is atraumatic. Pupils appear to be symmetric and reactive to light. Oropharynx is clear. NECK: Supple. LUNGS: Sounds are heard bilaterally without rales or rhonchi. HEART: S1, S2, no murmurs or gallops. ABDOMEN: Soft, nontender, nondistended. EXTREMITIES: Without any clubbing, cyanosis, or edema. He has normal range of motion of his left knee where he is complaining of having a herpes infection. He has a small knee effusion and some mild tenderness to palpation but no evidence of any acute infection. His gait is normal from my observation. RELEVANT LABORATORY DATA: White count is 10.3, hemoglobin 12.8, hematocrit 38, platelet count 325. Sodium 137, potassium 3.8, chloride 105, bicarbonate 28, BUN is 12, creatinine is 0.9, glucose is 113. AST is 23, ALT is 33, alkaline phosphatase 95. TSH is 5.6. Urine drug screen was negative. Alcohol, Acetaminophen and salicylate levels were negative. COVID swab is negative. IMAGING DATA: No imaging studies were done. IMPRESSION: 1. Acute sorin. 2. Subclinical hypothyroidism. PLAN: 1. I will check a free T-4 in the AM. 2. It is indicated to the patient that he can follow up with Orthopedics as an outpatient for further evaluation of his left knee pain. At this time there is nothing acute that warrants any intervention. 3. The patient may proceed with psychiatric treatment and evaluation. Thank you for allowing us to participate in the care of this patient. I will follow up the free T-4 level and see if we need to start the patient on some Synthroid.
[2021-02-16] MEDS: LORazepam 2 MG TAB PO PRN ×3 (02:07→21:19)
[2021-02-16] MEDS: NICOTINE 21MG/24HR 1 EA TRANSDERMAL TD SCH (09:00)
[2021-02-16] MEDS: fluPHENAZine 5MG TABLET PO SCH ×2 (09:18→21:13)
[2021-02-16] MEDS: ATORVASTATIN 20 MG TAB PO SCH (11:46)
--- NOTE | 2021-02-16 12:26 | MHIPNPDOC ---
[facility] Progress Note Progress Note DATE OF SERVICE: 02/16/21 HISTORY: Patient is a 60 -year-old Single, Unemployed, Domiciled , male, who presents to [facility] after he was picked up by law enforcement on a 9.45 initiated by Elidia Galicia from [facility]. Dr. Sin Glaser reported that patient has been decompensating and threatened to burn down the structure in the community. He is also fixated on a blood infection in his knee. Per Elidia Galicia patient had left multiple messages demanding an antibiotic. Patient states that he has no idea why he is here, he has rapid, pressure speech with severe flight of ideas. Patient believes that he needs medications for an infection in his knees. He presents with tangential, hyperverbal, pressure speech, manic, paranoid and delusional behaviors. He is agitated in the interview, at times threatening if he does not get the medications he demand. Also states that he will not accept Haldol or Zyprexa. He finally agreed to take Prolixin and states that he wants to receive his Prolixin Decanoate injection. PER ED REPORT: Elidia Galicia from [facility] called stating that Dr. Sin Glaser issued a picked edge sewing machine operator order due to Pat feeling that pt has been decompensating. Pat reports that pt threatened to burn down a structure in the community as well as being extremely fixated on having a blood infection in his knee. Per Elidia pt has left multiple messages at his drs office demanding an antibiotic. Pt talks very rapid, rambles and talks in circles. Pt has to be redirected several different times. 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 Pt also believes that there is freon coming from the air vent in his room and believes that [facility] employees are poisoning him. Pt is very difficult to understand because, of his rapid speech. Pt continues to talk about medical conditions that he has and is very fixated on "how to make babies". Pt asked tw several times "do you want to make a baby with me? How do you make a baby anyways". Pt redirected pt again. Pt is very paranoid and wants to read everything tw wrote during our discussion. Tw accommodated, pt was happy that I let him see the notes. Pt begins talking about his home and landlord. pt reports having a good relationship with his landlord and at times he will begin saying something and then retract the comment and say "oh, I can't say that, that sounds crazy". Pt reports that he lives by himself and that he feels that his biggest support is his best friend Petar. Pt begins to ramble about how he had an affair with Petar's and gave her herpes. Pt reports good appetite and sleep. Pt denies AH/VH. Pt appears to be internally preoccupied; pt is talking to himself in the room. Pt will address others when asked who he is talking to. VITAL SIGNS: See below. CURRENT MEDICATIONS: See below. MENTAL STATUS EXAMINATION: gail is a 60 -year-old Single, Unemployed, Domiciled , male, who presents to [facility] after he was picked up by law enforcement on a .45 initiated by Elidia Galicia from [facility]. Dr. Sin Glaser reported that patient has been decompensating and threatened to burn down the structure in the community and has delusional thoughts about having an infected knee Appearance: Unkempt, disheveled, looks his stated age. Eye contact is fleeting. Speech: rapid, slurred, hyperverbal Language skills are intact Thought processes including:disorganized Thought content: denies depression and anxiety. Denies suicidal/homicidal ideation, planning or intent. Abstract reasoning, and computation: fair Description of associations: manic behaviors and manic speech with flight of ideas Description of abnormal or psychotic thoughts: grandiose, labile, irritable, hostile at times Judgment: poor Insight: poor Orientation: alert and oriented to person, place, time but not to situation Recent and remote memory: intact Attention span and concentration: good Language: expansive Fund of knowledge: average Mood: Labile Mood Affect: labile and flat DIAGNOSES: Bipolar I Disorder, current episode, manic Nicotine Use Disorder Hypothyroid HTN ASSESSMENT: Patient is sexually preoccupied, remains labile, disruptive and impulsive. Observed to be agitated. Per staff patient had loud expressions while masturbating in his room. Today in the interview he was sexually preoccupied with numerous inappropriate comments to this provider. His speech was hyperverbal, slurred with flights of ideas. Much of what he is saying cannot be understood although he clearly states "I don't want Haldol! I do not want a downer!" Reinforced that he will be discharged when he is stable and he stated "When is that? I want to leave on Friday!" Patient is seen in the milieu talking excessively to the staff, but he is inappropriate with peers and in groups. Patient is not stable for discharge due to his poor insight and poor judgment, labile and manic behaviors MANAGEMENT PLAN: Continue all medications as ordered, patient only willing to take Prolixin and will accept Prolixin Decanoate, he will be discharged when he is stable and can be safe in the community. TIME SPENT: 25 minutes. Vital Signs Vital Signs Date Time Temp Pulse Resp B/P (MAP) Pulse Ox O2 Delivery O2 Flow Rate FiO2 02/15/21 16:14 97.9 86 14 113/75 (88) 02/14/21 21:10 96 Room Air Laboratory Data 24H Labs Laboratory Tests 2 02/16/21 10:51: Free Thyroxine 0.88 Current Medications Current Medications Medications (Trade) Dose Ordered Sig/Vivienne Route PRN Reason Start Time Stop Time Status Last Admin Dose Admin Acetaminophen (Tylenol Tab) 650 mg Q6HP PRN PO HEADACHE or DISCOMFORT 02/14/21 18:15 02/16/21 10:20 DC Al Hydrox/Mg Hydrox/Simethicone (Mylanta) 30 ml Q4HP PRN PO HEARTBURN/INDIGESTION 02/14/21 18:15 Atorvastatin Calcium (Lipitor) 20 mg DAILY PO 02/16/21 09:00 02/16/21 11:46 Benztropine Mesylate (Cogentin) 0.5 mg BIDP PRN PO EPS 02/15/21 14:15 02/15/21 19:55 Fluphenazine Decanoate (Prolixin Decanoate) 25 mg Q28D@12 IM 02/19/21 12:00 Fluphenazine HCl (Prolixin) 10 mg BID PO 02/15/21 09:00 02/16/21 09:18 Haloperidol (Haldol) 5 mg Q6HP PRN PO AGITATION 02/15/21 14:15 Lorazepam (Ativan) 1 mg Q4HP PRN PO ANXIETY/AGITATION 02/14/21 23:10 02/15/21 14:20 DC 02/15/21 12:36 Lorazepam (Ativan) 2 mg Q6H PO 02/15/21 18:00 02/15/21 14:23 DC Lorazepam (Ativan) 2 mg Q6HP PRN PO ANXIETY/AGITATION 02/15/21 14:25 02/16/21 09:18 Magnesium Hydroxide (Milk Of Magnesia) 30 ml DAILYPRN PRN PO CONSTIPATION 02/14/21 18:15 Naproxen (Naprosyn) 500 mg BIDP PRN PO PAIN 02/16/21 10:20 Nicotine (Nicoderm Cq 21mg) 1 patch DAILY TD 02/15/21 09:00 Olanzapine (ZyPREXA ZYDIS) 5 mg Q4HP PRN PO ANXIETY/AGITATION 02/14/21 18:15 Trazodone HCl (Desyrel) 50 mg QHSP PRN PO INSOMNIA 02/14/21 18:15 Allergies Coded Allergies: No Known Allergies (Verified , 10/27/05) ALISHA ERICKSON NP February 16, 2021 12:26
[2021-02-16 18:29] VITALS: BP 147/90
[2021-02-17 06:00] VITALS: BP 139/86
[2021-02-17] MEDS: ATORVASTATIN 20 MG TAB PO SCH (08:48)
[2021-02-17] MEDS: fluPHENAZine 5MG TABLET PO SCH ×2 (08:48→19:34)
[2021-02-17] MEDS: BENZTROPINE 0.5 MG TAB PO PRN (08:48)
[2021-02-17] MEDS: LORazepam 2 MG TAB PO PRN ×2 (08:51→19:34)
[2021-02-17] MEDS: NICOTINE 21MG/24HR 1 EA TRANSDERMAL TD SCH (09:00)
[2021-02-18] MEDS: NAPROXEN 250 MG TAB PO PRN (05:51)
[2021-02-18 06:56] VITALS: BP 120/80
[2021-02-18] MEDS: fluPHENAZine 5MG TABLET PO SCH ×2 (08:26→20:30)
[2021-02-18] MEDS: ATORVASTATIN 20 MG TAB PO SCH (08:26)
[2021-02-18] MEDS: NICOTINE 21MG/24HR 1 EA TRANSDERMAL TD SCH (08:26)
--- NOTE | 2021-02-18 12:42 | MHIPN ---
[facility] PROGRESS NOTE DATE: 02/17/2021 The patient is seen via telepsychiatry due to the current Coronavirus crisis. The patient basically is rambling on the entire time and repeating that there is no reason for him to be in the hospital and he has no insight about his illness. MENTAL STATUS EXAMINATION: This patient is alert, I was unable to really test for orientation, but he seems to be alert and oriented at least to person and place, but basically the patient just rambled on. The patient had pressured speech, flight of ideas. His mood was angry. His affect was labile. He is not suicidal or homicidal he says, and he appears to be quite paranoid. Concentration is fair. Memory is fair. Insight and judgment poor. DIAGNOSIS: Bipolar disorder type 1, manic. TREATMENT PLAN: We will continue to monitor the patient for continued paranoid thoughts and manic-like symptoms and to titrate medication as indicated.
[2021-02-18] MEDS: MOM 30ML SUSPENSION UDC PO PRN (21:18)
[2021-02-18] MEDS: LORazepam 2 MG TAB PO PRN (21:55)
[2021-02-19 07:09] VITALS: BP 121/72
[2021-02-19] MEDS: NICOTINE 21MG/24HR 1 EA TRANSDERMAL TD SCH (08:57)
[2021-02-19] MEDS: ATORVASTATIN 20 MG TAB PO SCH (08:57)
[2021-02-19] MEDS: fluPHENAZine 5MG TABLET PO SCH ×2 (08:57→20:25)
[2021-02-19] MEDS: DOCUSATE SODIUM 100MG CAPSULE PO PRN ×2 (10:16→20:25)
[2021-02-19] MEDS ORDERED: fluPHENAZine DECAN 25MG/ML 5ML VIAL (J2680) IM SCH (12:00)
--- NOTE | 2021-02-19 13:01 | MHIPN ---
[facility] PSYCHIATRIC PROGRESS NOTE DATE OF SERVICE: 02/18/2021 HISTORY OF PRESENT ILLNESS: Again the patient decided to mostly ramble on about feeling that he never belonged in the hospital in the first place. MENTAL STATUS EXAM: This patient is alert and oriented times 3. The patient's speech is pressured and there is flight of ideas. It is very difficult to try to redirect him. He seems to be delusional. He is not suicidal or homicidal. Concentration is poor. Memory appears to be intact. Insight and judgment is poor. DIAGNOSIS: Bipolar disorder type 1, manic. TREATMENT PLAN: We will continue to monitor the patient for resolution of psychotic symptoms and manic symptoms.
--- NOTE | 2021-02-19 13:51 | MHIPNPDOC ---
[facility] Progress Note Progress Note DATE OF SERVICE: 02/19/21 HISTORY: Patient is a 60 -year-old Single, Unemployed, Domiciled , male, who presents to [facility] after he was picked up by law enforcement on a 9.45 initiated by Elidia Galicia from [facility]. Dr. Sin Glaser reported that patient has been decompensating and threatened to burn down the structure in the community. He is also fixated on a blood infection in his knee. Per Elidia Galicia patient had left multiple messages demanding an antibiotic. Patient states that he has no idea why he is here, he has rapid, pressure speech with severe flight of ideas. Patient believes that he needs medications for an infection in his knees. He presents with tangential, hyperverbal, pressure speech, manic, paranoid and delusional behaviors. He is agitated in the interview, at times threatening if he does not get the medications he demand. Also states that he will not accept Haldol or Zyprexa. He finally agreed to take Prolixin and states that he wants to receive his Prolixin Decanoate injection. PER ED REPORT: Elidia Galicia from [facility] called stating that Dr. Sin Glaser issued a seed cone picker order due to Pat feeling that pt has been decompensating. Pat reports that pt threatened to burn down a structure in the community as well as being extremely fixated on having a blood infection in his knee. Per Elidia pt has left multiple messages at his drs office demanding an antibiotic. Pt talks very rapid, rambles and talks in circles. Pt has to be redirected several different times. 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 Pt also believes that there is freon coming from the air vent in his room and believes that [facility] employees are poisoning him. Pt is very difficult to understand because, of his rapid speech. Pt continues to talk ab out medical conditions that he has and is very fixated on "how to make babies". Pt asked tw several times "do you want to make a baby with me? How do you make a baby anyways". Pt redirected pt again. Pt is very paranoid and wants to read everything tw wrote during our discussion. Tw accommodated, pt was happy that I let him see the notes. Pt begins talking about his home and landlord. pt reports having a good relationship with his landlord and at times he will begin saying something and then retract the comment and say "oh, I can't say that, that sounds crazy". Pt reports that he lives by himself and that he feels that his biggest support is his best friend Petar. Pt begins to ramble about how he had an affair with Petar's and gave her herpes. Pt reports good appetite and sleep. Pt denies AH/VH. Pt appears to be internally preoccupied; pt is talking to himself in the room. Pt will address others when asked who he is talking to. VITAL SIGNS: See below. CURRENT MEDICATIONS: See below. MENTAL STATUS EXAMINATION: gail is a 60 -year-old Single, Unemployed, Domiciled , male, who presents to [facility] after he was picked up by law enforcement on a 9.45 initiated by Elidia Galicia from [facility]. Dr. Sin Glaser reported that patient has been decompensating and threatened to burn down the structure in the community and has delusional thoughts about having an infected knee Appearance: well-kempt, wearing shorts, sandals and appropriate t-shirt, looks his stated age. Eye contact is maintained Speech: rapid, hyperverbal, slurred at times, low tone and volume Language skills are intact Thought processes including: more organized and linear Thought content: denies depression and anxiety. Denies suicidal/homicidal ideation, planning or intent. Abstract reasoning, and computation: fair Description of associations: flight of ideas Description of abnormal or psychotic thoughts: mild grandiosity, mild paranoia Judgment: improving Insight: improving Orientation: alert and oriented to person, place, time and situation - states that he became belligerent with his doctor because he was not listening to him Recent and remote memory: intact Attention span and concentration: good Language: expansive Fund of knowledge: average Mood: Euthymic Mood Affect: Flat DIAGNOSES: Bipolar I Disorder, current episode, manic Nicotine Use Disorder Hypothyroid HTN ASSESSMENT: Patient appears to be improving in mood and affect. In my last interaction with this patient he was labile, manic, hyperverbal, had rapid, pressured speech. In today's interview he was polite, not labile and not manic. He did have some grandiosity and very hyperverbal speech but he was more oriented. He appears to be stabilizing and is hopeful to be discharged this week. Patient denies depression, anxiety and suicidal or homicidal thinking. He continued to ruminate about his knees being infected with a blood infection. States he needs antibiotics. He was moderately mosque and sexually preoccupied in the interview. Based on his continued improvement, patient could be discharged in the next two days. Compliant with medications. MANAGEMENT PLAN: Continue all medications as ordered, received Prolixin Decanoate 25 mg IM today, he will be discharged when he is stable and can be s afe in the community. TIME SPENT: 25 minutes. Vital Signs Vital Signs Date Time Temp Pulse Resp B/P (MAP) Pulse Ox O2 Delivery O2 Flow Rate FiO2 02/19/21 07:09 98.5 91 20 121/72 (88) 97 Room Air Current Medications Current Medications Medications (Trade) Dose Ordered Sig/Vivienne Route PRN Reason Start Time Stop Time Status Last Admin Dose Admin Acetaminophen (Tylenol Tab) 650 mg Q6HP PRN PO HEADACHE or DISCOMFORT 02/14/21 18:15 02/16/21 10:20 DC Al Hydrox/Mg Hydrox/Simethicone (Mylanta) 30 ml Q4HP PRN PO HEARTBURN/INDIGESTION 02/14/21 18:15 Artificial Tears (Akwa Tears) 2 drop TIDP PRN OU DRY EYES 02/19/21 08:30 Atorvastatin Calcium (Lipitor) 20 mg DAILY PO 02/16/21 09:00 02/19/21 08:57 Benztropine Mesylate (Cogentin) 0.5 mg BIDP PRN PO EPS 02/15/21 14:15 02/17/21 08:48 Docusate Sodium (Colace) 200 mg BIDP PRN PO CONSTIPATION 02/19/21 08:30 02/19/21 10:16 Fluphenazine Decanoate (Prolixin Decanoate) 25 mg Q28D@12 IM 02/19/21 12:00 02/19/21 12:53 Fluphenazine HCl (Prolixin) 10 mg BID PO 02/15/21 09:00 02/19/21 08:57 Haloperidol (Haldol) 5 mg Q6HP PRN PO AGITATION 02/15/21 14:15 Lorazepam (Ativan) 1 mg Q4HP PRN PO ANXIETY/AGITATION 02/14/21 23:10 02/15/21 14:20 DC 02/15/21 12:36 Lorazepam (Ativan) 2 mg Q6H PO 02/15/21 18:00 02/15/21 14:23 DC Lorazepam (Ativan) 2 mg Q6HP PRN PO ANXIETY/AGITATION 02/15/21 14:25 02/18/21 21:55 Magnesium Hydroxide (Milk Of Magnesia) 30 ml DAILYPRN PRN PO CONSTIPATION 02/14/21 18:15 02/18/21 21:18 Naproxen (Naprosyn) 500 mg BIDP PRN PO PAIN 02/16/21 10:20 02/18/21 05:51 Nicotine (Nicoderm Cq 21mg) 1 patch DAILY TD 02/15/21 09:00 Olanzapine (ZyPREXA ZYDIS) 5 mg Q4HP PRN PO ANXIETY/AGITATION 02/14/21 18:15 Sodium Chloride (Pinch Nasal [place]) 2 spray Q2HP PRN NA NASAL DRYNESS 02/19/21 08:30 Trazodone HCl (Desyrel) 50 mg QHSP PRN PO INSOMNIA 02/14/21 18:15 Allergies Coded Allergies: No Known Allergies (Verified , 10/27/05) ALISHA ERICKSON NP February 19, 2021 13:51
[2021-02-19 18:52] VITALS: BP 144/71
[2021-02-19] MEDS: MOM 30ML SUSPENSION UDC PO PRN (21:31)
[2021-02-19] MEDS: traZODone 50 MG TAB PO PRN (22:27)
[2021-02-19] MEDS: LORazepam 2 MG TAB PO PRN (22:27)
[2021-02-20 06:35] VITALS: BP 128/62
[2021-02-20] MEDS: LORazepam 2 MG TAB PO PRN (08:26)
[2021-02-20] MEDS: ATORVASTATIN 20 MG TAB PO SCH (08:27)
[2021-02-20] MEDS: NAPROXEN 250 MG TAB PO PRN (08:27)
[2021-02-20] MEDS: fluPHENAZine 5MG TABLET PO SCH ×2 (08:27→20:22)
--- NOTE | 2021-02-20 15:26 | MHIPNPDOC ---
[facility] Progress Note Progress Note DATE OF SERVICE: 02/20/21 HISTORY: Patient is a 60 -year-old Single, Unemployed, Domiciled , male, who presents to [facility] after he was picked up by law enforcement on a 9.45 initiated by Elidia Galicia from [facility]. Dr. Sin Glaser reported that patient has been decompensating and threatened to burn down the structure in the community. He is also fixated on a blood infection in his knee. Per Elidia Galicia patient had left multiple messages demanding an antibiotic. Patient states that he has no idea why he is here, he has rapid, pressure speech with severe flight of ideas. Patient believes that he needs medications for an infection in his knees. He presents with tangential, hyperverbal, pressure speech, manic, paranoid and delusional behaviors. He is agitated in the interview, at times threatening if he does not get the medications he demand. Also states that he will not accept Haldol or Zyprexa. He finally agreed to take Prolixin and states that he wants to receive his Prolixin Decanoate injection. PER ED REPORT: Elidia Galicia from [facility] called stating that Dr. Sin Glaser issued a strip picker order due to Pat feeling that pt has been decompensating. Pat reports that pt threatened to burn down a structure in the community as well as being extremely fixated on having a blood infection in his knee. Per Elidia pt has left multiple messages at his drs office demanding an antibiotic. Pt talks very rapid, rambles and talks in circles. Pt has to be redirected several different times. 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 Pt also believes that there is freon coming from the air vent in his room and believes that [facility] employees are poisoning him. Pt is very difficult to understand because, of his rapid speech. Pt continues to talk ab out medical conditions that he has and is very fixated on "how to make babies". Pt asked tw several times "do you want to make a baby with me? How do you make a baby anyways". Pt redirected pt again. Pt is very paranoid and wants to read everything tw wrote during our discussion. Tw accommodated, pt was happy that I let him see the notes. Pt begins talking about his home and landlord. pt reports having a good relationship with his landlord and at times he will begin saying something and then retract the comment and say "oh, I can't say that, that sounds crazy". Pt reports that he lives by himself and that he feels that his biggest support is his best friend Petar. Pt begins to ramble about how he had an affair with Petar's and gave her herpes. Pt reports good appetite and sleep. Pt denies AH/VH. Pt appears to be internally preoccupied; pt is talking to himself in the room. Pt will address others when asked who he is talking to. VITAL SIGNS: See below. CURRENT MEDICATIONS: See below. MENTAL STATUS EXAMINATION: gail is a 60 -year-old Single, Unemployed, Domiciled , male, who presents to [facility] after he was picked up by law enforcement on a 9.45 initiated by Elidia Galicia from [email or web address]. Dr. Sin Glaser reported that patient has been decompensating and threatened to burn down the structure in the community and has delusional thoughts about having an infected knee Appearance: well-kempt, wearing shorts, sandals and appropriate t-shirt, looks his stated age. Eye contact is maintained Speech: rapid, hyperverbal, slurred at times, low tone and volume Language skills are intact Thought processes including: more organized and linear Thought content: denies depression and anxiety. Denies suicidal/homicidal ideation, planning or intent. Abstract reasoning, and computation: fair Description of associations: flight of ideas Description of abnormal or psychotic thoughts: mild grandiosity, mild paranoia Judgment: improving Insight: improving Orientation: alert and oriented to person, place, time and situation - states that he became belligerent with his doctor because he was not listening to him Recent and remote memory: intact Attention span and concentration: good Language: expansive Fund of knowledge: average Mood: Euthymic Mood Affect: Flat DIAGNOSES: Bipolar I Disorder, current episode, manic Nicotine Use Disorder Hypothyroid HTN ASSESSMENT: Patient found in his bed in a peculiar posture. Partly Prone with his right leg supporting his weight off the bed. When asked why he was lying in bed that way he stated that he has a need to sleep that way. Patient continues to have loose association at times. His speech is hyperverbal and tangential. He is observed to be mildly hypomanic in his speech, but he is cooperative and visible on the unit. His demeanor is average and he has been cooperative. He denies depression, anxiety. Denies any sorin, paranoia, ruminations, auditory or visual hallucinations. He is observed to be less sexually and religiously preoccupied MANAGEMENT PLAN: Continue all medications as ordered, possible discharge on or Friday TIME SPENT: 25 minutes. Vital Signs Vital Signs Date Time Temp Pulse Resp B/P (MAP) Pulse Ox O2 Delivery O2 Flow Rate FiO2 02/20/21 06:35 97.0 78 18 128/62 (84) 97 Room Air Current Medications Current Medications Medications (Trade) Dose Ordered Sig/Vviienne Route PRN Reason Start Time Stop Time Status Last Admin Dose Admin Acetaminophen (Tylenol Tab) 650 mg Q6HP PRN PO HEADACHE or DISCOMFORT 02/14/21 18:15 02/16/21 10:20 DC Al Hydrox/Mg Hydrox/Simethicone (Mylanta) 30 ml Q4HP PRN PO HEARTBURN/INDIGESTION 02/14/21 18:15 Artificial Tears (Akwa Tears) 2 drop TIDP PRN OU DRY EYES 02/19/21 08:30 Atorvastatin Calcium (Lipitor) 20 mg DAILY PO 02/16/21 09:00 02/20/21 08:27 Benztropine Mesylate (Cogentin) 0.5 mg BIDP PRN PO EPS 02/15/21 14:15 02/17/21 08:48 Docusate Sodium (Colace) 200 mg BIDP PRN PO CONSTIPATION 02/19/21 08:30 02/19/21 20:25 Fluphenazine Decanoate (Prolixin Decanoate) 25 mg Q28D@12 IM 02/19/21 12:00 02/19/21 12:53 Fluphenazine HCl (Prolixin) 10 mg BID PO 02/15/21 09:00 02/20/21 08:27 Haloperidol (Haldol) 5 mg Q6HP PRN PO AGITATION 02/15/21 14:15 Lorazepam (Ativan) 1 mg Q4HP PRN PO ANXIETY/AGITATION 02/14/21 23:10 02/15/21 14:20 DC 02/15/21 12:36 Lorazepam (Ativan) 2 mg Q6H PO 02/15/21 18:00 02/15/21 14:23 DC Lorazepam (Ativan) 2 mg Q6HP PRN PO ANXIETY/AGITATION 02/15/21 14:25 02/20/21 08:26 Magnesium Hydroxide (Milk Of Magnesia) 30 ml DAILYPRN PRN PO CONSTIPATION 02/14/21 18:15 02/19/21 21:31 Naproxen (Naprosyn) 500 mg BIDP PRN PO PAIN 02/16/21 10:20 02/20/21 08:27 Nicotine (Nicoderm Cq 21mg) 1 patch DAILY TD 02/15/21 09:00 02/19/21 15:19 DC Olanzapine (ZyPREXA ZYDIS) 5 mg Q4HP PRN PO ANXIETY/AGITATION 02/14/21 18:15 Sodium Chloride (Irion Nasal [place]) 2 spray Q2HP PRN NA NASAL DRYNESS 02/19/21 08:30 Trazodone HCl (Desyrel) 50 mg QHSP PRN PO INSOMNIA 02/14/21 18:15 02/19/21 22:27 Allergies Coded Allergies: No Known Allergies (Verified , 10/27/05) ALISHA ERICKSON NP February 20, 2021 15:26
[2021-02-20] MEDS: POLYVINYL ALCOHOL OPHTH SOLN 15 ML(LIQUITEARS) OU PRN (15:34)
[2021-02-20] MEDS: SODIUM CHLORIDE NASAL 0.65% SPRAY BTL (OCEAN) PRN (15:34)
[2021-02-20 16:12] VITALS: BP 122/81
[2021-02-20] MEDS: traZODone 50 MG TAB PO PRN (20:21)
[2021-02-21 06:59] VITALS: BP 128/97
[2021-02-21] MEDS: fluPHENAZine 5MG TABLET PO SCH (08:09)
[2021-02-21] MEDS: ATORVASTATIN 20 MG TAB PO SCH (08:09)
[2021-02-21] MEDS: DOCUSATE SODIUM 100MG CAPSULE PO PRN (08:12)
[2021-02-21] MEDS: POLYVINYL ALCOHOL OPHTH SOLN 15 ML(LIQUITEARS) OU PRN (08:13)
[2021-02-21] MEDS: SODIUM CHLORIDE NASAL 0.65% SPRAY BTL (OCEAN) PRN (08:13)
--- NOTE | 2021-02-21 09:16 | MHIPNPDOC ---
[facility] Progress Note Progress Note DATE OF SERVICE: 02/21/21 HISTORY: Patient is a 60 -year-old Single, Unemployed, Domiciled , male, who presents to [facility] after he was picked up by law enforcement on a 9.45 initiated by Elidia Galicia from [facility]. Dr. Sin Glaser reported that patient has been decompensating and threatened to burn down the structure in the community. He is also fixated on a blood infection in his knee. Per Elidia Galicia patient had left multiple messages demanding an antibiotic. Patient states that he has no idea why he is here, he has rapid, pressure speech with severe flight of ideas. Patient believes that he needs medications for an infection in his knees. He presents with tangential, hyperverbal, pressure speech, manic, paranoid and delusional behaviors. He is agitated in the interview, at times threatening if he does not get the medications he demand. Also states that he will not accept Haldol or Zyprexa. He finally agreed to take Prolixin and states that he wants to receive his Prolixin Decanoate injection. PER ED REPORT: Elidia Galicia from [facility] called stating that Dr. Sin Glaser issued a picking tech order due to Pat feeling that pt has been decompensating. Pat reports that pt threatened to burn down a structure in the community as well as being extremely fixated on having a blood infection in his knee. Per Elidia pt has left multiple messages at his drs office demanding an antibiotic. Pt talks very rapid, rambles and talks in circles. Pt has to be redirected several different times. 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 Pt also believes that there is freon coming from the air vent in his room and believes that [facility] employees are poisoning him. Pt is very difficult to understand because, of his rapid speech. Pt continues to talk about medical conditions that he has and is very fixated on "how to make babies". Pt asked tw several times "do you want to make a baby with me? How do you make a baby anyways". Pt redirected pt again. Pt is very paranoid and wants to read everything tw wrote during our discussion. Tw accommodated, pt was happy that I let him see the notes. Pt begins talking about his home and landlord. pt reports having a good relationship with his landlord and at times he will begin saying something and then retract the comment and say "oh, I can't say that, that sounds crazy". Pt reports that he lives by himself and that he feels that his biggest support is his best friend Petar. Pt begins to ramble about how he had an affair with Petar's and gave her herpes. Pt reports good appetite and sleep. Pt denies AH/VH. Pt appears to be internally preoccupied; pt is talking to himself in the room. Pt will address others when asked who he is talking to. VITAL SIGNS: See below. CURRENT MEDICATIONS: See below. MENTAL STATUS EXAMINATION: gail is a 60 -year-old Single, Unemployed, Domiciled , male, who presents to [facility] after he was picked up by law enforcement on a .45 initiated by Elidia Galicia from [facility]. Dr. Sin Glaser reported that patient has been decompensating and threatened to burn down the structure in the community and has delusional thoughts about having an infected knee Appearance: well-kempt, wearing shorts, sandals and appropriate t-shirt, looks his stated age. Eye contact is maintained Speech: normal tone and volume, slurred at times Language skills are intact Thought processes including: more organized and linear Thought content: denies depression and anxiety. Denies suicidal/homicidal ideation, planning or intent. Abstract reasoning, and computation: fair Description of associations: flight of ideas Description of abnormal or psychotic thoughts: mild grandiosity, less paranoia, appears to have some bizarre buddhism thinking "I want to go to [place] to get baptized" Judgment: improving Insight: improving Orientation: alert and oriented to person, place, time and situation Recent and remote memory: intact Attention span and concentration: good Language: expansive Fund of knowledge: average Mood: Euthymic Mood Affect: Flat DIAGNOSES: Bipolar I Disorder, current episode, manic Nicotine Use Disorder Hypothyroid HTN ASSESSMENT: Patient agreeable to interview, while walking to the office he overheard staff say that she needed toilet paper for a peer. Patient went to another staff person and was able to relay the message and then he returned to the interview. Patient is observed to be dressed appropriately, although he is wearing a short-sleeved shirt over his long sleeved shirt. His speech is slurred, but he is alert and oriented, gait is steady and he is able to follow commands and answer questions appropriately. He remains religiously preoccupied. He is mildly inappropriate with sexual comments to peers and staff. He denies depression, anxiety, SI/HI, AH/VH/TH and is not observed with psychotic symptoms but remains hypomanic. He was mildly tearful in the interview, stating "I know I needed to be here, I am sorry I gave you all such a hard time, I know I am doing better, I feel better." Patient is out in the milieu, tolerating medications and compliant with the treatment. It was reported that he is social with peers but still intrusive. Per treatment team, patient is not quite stable. Will discharge when more stable and has better insight and judgment in which he can be safe in the community. at 1530 patient approached me in very aggressive manner, states "Am I going to be discharged or not?" Reviewed with patient that while he has been more appropriate in interviews with me, he has been observed as not stable for discha rge by the staff. Patient became very angry, making statements about his cat and that he is the center of his universe. Apologized to the patient but reinforced with him that his behaviors at that moment demonstrates that the staff are correct in supporting their evaluation that he is not stable to be in the community. His expansive mood and his bizarre statements shows poor insight and poor judgment. He was observed to be very intrusive with staff with regards to medications and treatment. MANAGEMENT PLAN: Continue all medications as ordered, decrease oral Fluphenazine to 10 mg HS, probable discharge on Friday or Friday TIME SPENT: 25 minutes. Vital Signs Vital Signs Date Time Temp Pulse Resp B/P (MAP) Pulse Ox O2 Delivery O2 Flow Rate FiO2 02/21/21 06:59 98.1 90 20 128/97 (107) 97 Room Air Current Medications Current Medications Medications (Trade) Dose Ordered Sig/Vivienne Route PRN Reason Start Time Stop Time Status Last Admin Dose Admin Acetaminophen (Tylenol Tab) 650 mg Q6HP PRN PO HEADACHE or DISCOMFORT 02/14/21 18:15 02/16/21 10:20 DC Al Hydrox/Mg Hydrox/Simethicone (Mylanta) 30 ml Q4HP PRN PO HEARTBURN/INDIGESTION 02/14/21 18:15 Artificial Tears (Akwa Tears) 2 drop TIDP PRN OU DRY EYES 02/19/21 08:30 02/21/21 08:13 Atorvastatin Calcium (Lipitor) 20 mg DAILY PO 02/16/21 09:00 02/21/21 08:09 Benztropine Mesylate (Cogentin) 0.5 mg BIDP PRN PO EPS 02/15/21 14:15 02/17/21 08:48 Docusate Sodium (Colace) 200 mg BIDP PRN PO CONSTIPATION 02/19/21 08:30 02/21/21 08:12 Fluphenazine Decanoate (Prolixin Decanoate) 25 mg Q28D@12 IM 02/19/21 12:00 02/19/21 12:53 Fluphenazine HCl (Prolixin) 10 mg BID PO 02/15/21 09:00 02/21/21 08:40 DC 02/21/21 08:09 Fluphenazine HCl (Prolixin) 10 mg QHS PO 02/21/21 21:00 Haloperidol (Haldol) 5 mg Q6HP PRN PO AGITATION 02/15/21 14:15 Lorazepam (Ativan) 1 mg Q4HP PRN PO ANXIETY/AGITATION 02/14/21 23:10 02/15/21 14:20 DC 02/15/21 12:36 Lorazepam (Ativan) 2 mg Q6H PO 02/15/21 18:00 02/15/21 14:23 DC Lorazepam (Ativan) 2 mg Q6HP PRN PO ANXIETY/AGITATION 02/15/21 14:25 02/20/21 08:26 Magnesium Hydroxide (Milk Of Magnesia) 30 ml DAILYPRN PRN PO CONSTIPATION 02/14/21 18:15 02/19/21 21:31 Naproxen (Naprosyn) 500 mg BIDP PRN PO PAIN 02/16/21 10:20 02/20/21 08:27 Nicotine (Nicoderm Cq 21mg) 1 patch DAILY TD 02/15/21 09:00 02/19/21 15:19 DC Olanzapine (ZyPREXA ZYDIS) 5 mg Q4HP PRN PO ANXIETY/AGITATION 02/14/21 18:15 Sodium Chloride ([place] Nasal [place]) 2 spray Q2HP PRN NA NASAL DRYNESS 02/19/21 08:30 02/21/21 08:13 Trazodone HCl (Desyrel) 50 mg QHSP PRN PO INSOMNIA 02/14/21 18:15 02/20/21 20:21 Allergies Coded Allergies: No Known Allergies (Verified , 10/27/05) ALISHA ERICKSON NP February 21, 2021 09:16
[2021-02-21] MEDS: MOM 30ML SUSPENSION UDC PO PRN (14:25)
[2021-02-21] MEDS ORDERED: clonazePAM 0.5 MG TAB PO ONE (15:45)
[2021-02-21 16:18] VITALS: BP 126/88
[2021-02-21] MEDS ORDERED: fluPHENAZine 5MG TABLET PO SCH (21:00)
[2021-02-21] MEDS: haloperidoL 5 MG TAB PO PRN (22:31)
[2021-02-22] MEDS: haloperidoL 5 MG TAB PO PRN ×2 (05:10→12:01)
[2021-02-22 06:28] VITALS: BP 140/84
[2021-02-22] MEDS: BENZTROPINE 0.5 MG TAB PO PRN ×2 (09:31→23:05)
[2021-02-22] MEDS: ATORVASTATIN 20 MG TAB PO SCH (09:31)
[2021-02-22] MEDS: DOCUSATE SODIUM 100MG CAPSULE PO PRN (09:32)
--- NOTE | 2021-02-22 11:19 | MHIPNPDOC ---
[facility] Progress Note Progress Note DATE OF SERVICE: 02/22/21 HISTORY: Patient is a 60 -year-old Single, Unemployed, Domiciled , male, who presents to [facility] after he was picked up by law enforcement on a 9.45 initiated by Elidia Galicia from [facility]. Dr. Sin Glaser reported that patient has been decompensating and threatened to burn down the structure in the community. He is also fixated on a blood infection in his knee. Per Elidia Galicia patient had left multiple messages demanding an antibiotic. Patient states that he has no idea why he is here, he has rapid, pressure speech with severe flight of ideas. Patient believes that he needs medications for an infection in his knees. He presents with tangential, hyperverbal, pressure speech, manic, paranoid and delusional behaviors. He is agitated in the interview, at times threatening if he does not get the medications he demand. Also states that he will not accept Haldol or Zyprexa. He finally agreed to take Prolixin and states that he wants to receive his Prolixin Decanoate injection. PER ED REPORT: Elidia Galicia from [facility] called stating that Dr. Sin Glaser issued a lemon picker order due to Pat feeling that pt has been decompensating. Pat reports that pt threatened to burn down a structure in the community as well as being extremely fixated on having a blood infection in his knee. Per Elidia pt has left multiple messages at his drs office demanding an antibiotic. Pt talks very rapid, rambles and talks in circles. Pt has to be redirected several different times. 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 Pt also believes that there is freon coming from the air vent in his room and believes that [facility] employees are poisoning him. Pt is very difficult to understand because, of his rapid speech. Pt continues to talk ab out medical conditions that he has and is very fixated on "how to make babies". Pt asked tw several times "do you want to make a baby with me? How do you make a baby anyways". Pt redirected pt again. Pt is very paranoid and wants to read everything tw wrote during our discussion. Tw accommodated, pt was happy that I let him see the notes. Pt begins talking about his home and landlord. pt reports having a good relationship with his landlord and at times he will begin saying something and then retract the comment and say "oh, I can't say that, that sounds crazy". Pt reports that he lives by himself and that he feels that his biggest support is his best friend Petar. Pt begins to ramble about how he had an affair with Petar's and gave her herpes. Pt reports good appetite and sleep. Pt denies AH/VH. Pt appears to be internally preoccupied; pt is talking to himself in the room. Pt will address others when asked who he is talking to. VITAL SIGNS: See below. CURRENT MEDICATIONS: See below. MENTAL STATUS EXAMINATION: gail is a 60 -year-old Single, Unemployed, Domiciled , male, who presents to [facility] after he was picked up by law enforcement on a 9.45 initiated by Elidia Galicia from [facility]. Dr. Sin Glaser reported that patient has been decompensating and threatened to burn down the structure in the community and has delusional thoughts about having an infected knee Appearance: well-kempt, wearing hospital scrubs. Eye contact is intense Speech: loud, fast, pressured, slurred Language skills are intact Thought processes including: disorganized at times, Thought content: denies depression and anxiety. Denies suicidal/homicidal ideation, planning or intent. Abstract reasoning, and computation: fair Description of associations: flight of ideas, grandiose Description of abnormal or psychotic thoughts: grandiosity, paranoid, demands Seroquel 100 mg HS and 50 mg AM states that this works for him but then later admits that he has never had this regimen Judgment: impaired Insight: impaired Orientation: alert and oriented to person, place Recent and remote memory: fair Attention span and concentration: good Language: expansive Fund of knowledge: average Mood: Labile Mood Affect: Flat DIAGNOSES: Bipolar I Disorder, current episode, manic Nicotine Use Disorder Hypothyroid HTN ASSESSMENT: Patient found standing outside the office with his eyes closed kno cking on the door, then attempts to come into the office with his eyes closed. States that he likes working with this provider and then becomes immediately aggressive and agitated when patient demanded to be placed on a medication that he says works but he has never been prescribed it. Reinforced with the patient that he needs a mood stabilizer to stabilize. States he wants Seroquel but in his discussion he reports that he has never been prescribed Seroquel in the past. He wants to ensure his sperm count, that he can still do weight lifting and be able to still have children and this is why he is refusing mood stabilizers. When I discuss with him mood stabilizers he states that his muscles will become rock hard and he will and that he will now have to sushma the hospital because this provider is a "dumb bitch!" Patient was agitated and belligerent leaving the room and storms off. 12:[address] Mott, she recommends ordering EKG and Seroquel 50 mg twice daily. MANAGEMENT PLAN: Continue all medications as ordered, discharge is pending TIME SPENT: 25 minutes. Vital Signs Vital Signs Date Time Temp Pulse Resp B/P (MAP) Pulse Ox O2 Delivery O2 Flow Rate FiO2 02/22/21 06:28 98.0 98 20 140/84 (102) 95 Room Air Current Medications Current Medications Medications (Trade) Dose Ordered Sig/Vivienne Route PRN Reason Start Time Stop Time Status Last Admin Dose Admin Acetaminophen (Tylenol Tab) 650 mg Q6HP PRN PO HEADACHE or DISCOMFORT 02/14/21 18:15 02/16/21 10:20 DC Al Hydrox/Mg Hydrox/Simethicone (Mylanta) 30 ml Q4HP PRN PO HEARTBURN/INDIGESTION 02/14/21 18:15 Artificial Tears (Akwa Tears) 2 drop TIDP PRN OU DRY EYES 02/19/21 08:30 02/21/21 08:13 Atorvastatin Calcium (Lipitor) 20 mg DAILY PO 02/16/21 09:00 02/22/21 09:31 Benztropine Mesylate (Cogentin) 0.5 mg BIDP PRN PO EPS 02/15/21 14:15 02/22/21 09:31 Docusate Sodium (Colace) 200 mg BIDP PRN PO CONSTIPATION 02/19/21 08:30 02/22/21 09:32 Fluphenazine Decanoate (Prolixin Decanoate) 25 mg Q28D@12 IM 02/19/21 12:00 02/19/21 12:53 Fluphenazine HCl (Prolixin) 10 mg BID PO 02/15/21 09:00 02/21/21 08:40 DC 02/21/21 08:09 Fluphenazine HCl (Prolixin) 10 mg QHS PO 02/21/21 21:00 02/21/21 20:07 Haloperidol (Haldol) 5 mg Q6HP PRN PO AGITATION 02/15/21 14:15 02/22/21 05:10 Lorazepam (Ativan) 1 mg Q4HP PRN PO ANXIETY/AGITATION 02/14/21 23:10 02/15/21 14:20 DC 02/15/21 12:36 Lorazepam (Ativan) 2 mg Q6H PO 02/15/21 18:00 02/15/21 14:23 DC Lorazepam (Ativan) 2 mg Q6HP PRN PO ANXIETY/AGITATION 02/15/21 14:25 02/20/21 08:26 Magnesium Hydroxide (Milk Of Magnesia) 30 ml DAILYPRN PRN PO CONSTIPATION 02/14/21 18:15 02/21/21 14:25 Naproxen (Naprosyn) 500 mg BIDP PRN PO PAIN 02/16/21 10:20 02/20/21 08:27 Nicotine (Nicoderm Cq 21mg) 1 patch DAILY TD 02/15/21 09:00 02/19/21 15:19 DC Olanzapine (ZyPREXA ZYDIS) 5 mg Q4HP PRN PO ANXIETY/AGITATION 02/14/21 18:15 Sodium Chloride ([place] Nasal [place]) 2 spray Q2HP PRN NA NASAL DRYNESS 02/19/21 08:30 02/21/21 08:13 Trazodone HCl (Desyrel) 50 mg QHSP PRN PO INSOMNIA 02/14/21 18:15 02/20/21 20:21 Allergies Coded Allergies: No Known Allergies (Verified , 10/27/05) ALISHA ERICKSON NP February 22, 2021 11:07
[2021-02-22 16:18] VITALS: BP 140/80
[2021-02-22] MEDS: SODIUM CHLORIDE NASAL 0.65% SPRAY BTL (OCEAN) PRN (16:33)
[2021-02-22] MEDS: POLYVINYL ALCOHOL OPHTH SOLN 15 ML(LIQUITEARS) OU PRN (16:33)
[2021-02-22] MEDS ORDERED: clonazePAM 1 MG TAB PO ONE (18:05)
[2021-02-22] MEDS ORDERED: QUEtiapine FUMARATE 100 MG TAB PO SCH (21:00)
[2021-02-22] MEDS: QUEtiapine FUMARATE 50MG TAB PO SCH (23:05)
[2021-02-22] MEDS: LORazepam 2 MG TAB PO PRN (23:09)
[2021-02-23] MEDS: QUEtiapine FUMARATE 50MG TAB PO SCH ×2 (08:57→21:00)
[2021-02-23] MEDS: ATORVASTATIN 20 MG TAB PO SCH (08:57)
--- NOTE | 2021-02-23 13:11 | MHIPNPDOC ---
[facility] Progress Note Progress Note DATE OF SERVICE: 02/23/21 HISTORY: Patient is a 60 -year-old Single, Unemployed, Domiciled , male, who presents to [facility] after he was picked up by law enforcement on a 9.45 initiated by Elidia Galicia from [facility]. Dr. Sin Glaser reported that patient has been decompensating and threatened to burn down the structure in the community. He is also fixated on a blood infection in his knee. Per Elidia Galicia patient had left multiple messages demanding an antibiotic. Patient states that he has no idea why he is here, he has rapid, pressure speech with severe flight of ideas. Patient believes that he needs medications for an infection in his knees. He presents with tangential, hyperverbal, pressure speech, manic, paranoid and delusional behaviors. He is agitated in the interview, at times threatening if he does not get the medications he demand. Also states that he will not accept Haldol or Zyprexa. He finally agreed to take Prolixin and states that he wants to receive his Prolixin Decanoate injection. PER ED REPORT: Elidia Galicia from [facility] called stating that Dr. Sin Glaser issued a picket labor union order due to Pat feeling that pt has been decompensating. Pat reports that pt threatened to burn down a structure in the community as well as being extremely fixated on having a blood infection in his knee. Per Elidia pt has left multiple messages at his drs office demanding an antibiotic. Pt talks very rapid, rambles and talks in circles. Pt has to be redirected several different times. 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 Pt also believes that there is freon coming from the air vent in his room and believes that [facility] employees are poisoning him. Pt is very difficult to understand because, of his rapid speech. Pt continues to talk ab out medical conditions that he has and is very fixated on "how to make babies". Pt asked tw several times "do you want to make a baby with me? How do you make a baby anyways". Pt redirected pt again. Pt is very paranoid and wants to read everything tw wrote during our discussion. Tw accommodated, pt was happy that I let him see the notes. Pt begins talking about his home and landlord. pt reports having a good relationship with his landlord and at times he will begin saying something and then retract the comment and say "oh, I can't say that, that sounds crazy". Pt reports that he lives by himself and that he feels that his biggest support is his best friend Petar. Pt begins to ramble about how he had an affair with Petar's and gave her herpes. Pt reports good appetite and sleep. Pt denies AH/VH. Pt appears to be internally preoccupied; pt is talking to himself in the room. Pt will address others when asked who he is talking to. VITAL SIGNS: See below. CURRENT MEDICATIONS: See below. MENTAL STATUS EXAMINATION: gail is a 60 -year-old Single, Unemployed, Domiciled , male, who presents to [facility] after he was picked up by law enforcement on a 9.45 initiated by Elidia Galicia from [facility]. Dr. Sin Glaser reported that patient has been decompensating and threatened to burn down the structure in the community and has delusional thoughts about having an infected knee Appearance: well-kempt, wearing hospital scrubs. Eye contact is drowsy Speech:garbled and slurred Language skills are intact Thought processes including: disorganized and scattered Thought content: denies depression and anxiety. Denies suicidal/homicidal ideation, planning or intent. Abstract reasoning, and computation: fair Description of associations: flight of ideas, grandiose Description of abnormal or psychotic thoughts: grandiosity, paranoid, garbled speech Judgment: impaired Insight: impaired Orientation: alert and oriented to person, place Recent and remote memory: fair Attention span and concentration: good Language: expansive Fund of knowledge: average Mood: Labile Mood Affect: Flat DIAGNOSES: Bipolar I Disorder, current episode, manic Nicotine Use Disorder Hypothyroid HTN ASSESSMENT: Patient is exhibiting poor insight and judgment today. He feels that he meets criteria for discharge today and states that he needs to go home to be with his cat and his - it is unclear whether the patient is actually . He is not making any sense. His speech is garbled and slurred. According to staf f, patient was labile, aggressive and hostile on evening shift last night and continues to be labile throughout the day. His mood cycles many times throughout the day. Patient is very intrusive with other peers and staff. At times, very irritable and aggressive. MANAGEMENT PLAN: Continue all medications as ordered, discharge is pending TIME SPENT: 25 minutes. Vital Signs Vital Signs Date Time Temp Pulse Resp B/P (MAP) Pulse Ox O2 Delivery O2 Flow Rate FiO2 02/22/21 16:18 98.0 84 18 140/80 (100) 96 Room Air Current Medications Current Medications Medications (Trade) Dose Ordered Sig/Vivienne Route PRN Reason Start Time Stop Time Status Last Admin Dose Admin Acetaminophen (Tylenol Tab) 650 mg Q6HP PRN PO HEADACHE or DISCOMFORT 02/14/21 18:15 02/16/21 10:20 DC Al Hydrox/Mg Hydrox/Simethicone (Mylanta) 30 ml Q4HP PRN PO HEARTBURN/INDIGESTION 02/14/21 18:15 Artificial Tears (Akwa Tears) 2 drop TIDP PRN OU DRY EYES 02/19/21 08:30 02/22/21 16:33 Atorvastatin Calcium (Lipitor) 20 mg DAILY PO 02/16/21 09:00 02/23/21 08:57 Benztropine Mesylate (Cogentin) 0.5 mg BIDP PRN PO EPS 02/15/21 14:15 02/22/21 23:05 Clonazepam (KlonoPIN) 1 mg BIDP PRN PO anxiety/agitation 02/23/21 09:00 Docusate Sodium (Colace) 200 mg BIDP PRN PO CONSTIPATION 02/19/21 08:30 02/22/21 09:32 Fluphenazine Decanoate (Prolixin Decanoate) 25 mg Q28D@12 IM 02/19/21 12:00 02/19/21 12:53 Fluphenazine HCl (Prolixin) 10 mg BID PO 02/15/21 09:00 02/21/21 08:40 DC 02/21/21 08:09 Fluphenazine HCl (Prolixin) 10 mg QHS PO 02/21/21 21:00 02/22/21 11:20 DC 02/21/21 20:07 Haloperidol (Haldol) 5 mg Q6HP PRN PO AGITATION 02/15/21 14:15 02/22/21 12:01 Lorazepam (Ativan) 1 mg Q4HP PRN PO ANXIETY/AGITATION 02/14/21 23:10 02/15/21 14:20 DC 02/15/21 12:36 Lorazepam (Ativan) 2 mg Q6H PO 02/15/21 18:00 02/15/21 14:23 DC Lorazepam (Ativan) 2 mg Q6HP PRN PO ANXIETY/AGITATION 02/15/21 14:25 02/22/21 23:09 Magnesium Hydroxide (Milk Of Magnesia) 30 ml DAILYPRN PRN PO CONSTIPATION 02/14/21 18:15 02/21/21 14:25 Naproxen (Naprosyn) 500 mg BIDP PRN PO PAIN 02/16/21 10:20 02/20/21 08:27 Nicotine (Nicoderm Cq 21mg) 1 patch DAILY TD 02/15/21 09:00 02/19/21 15:19 DC Olanzapine (ZyPREXA ZYDIS) 5 mg Q4HP PRN PO ANXIETY/AGITATION 02/14/21 18:15 Quetiapine Fumarate (SEROquel) 50 mg QAM PO 02/23/21 09:00 02/23/21 08:57 Quetiapine Fumarate (SEROquel) 50 mg QHS PO 02/22/21 21:00 02/22/21 23:05 Quetiapine Fumarate (SEROquel) 100 mg QHS PO 02/22/21 21:00 02/22/21 12:18 DC Sodium Chloride ([place] Nasal [place]) 2 spray Q2HP PRN NA NASAL DRYNESS 02/19/21 08:30 02/22/21 16:33 Trazodone HCl (Desyrel) 50 mg QHSP PRN PO INSOMNIA 02/14/21 18:15 02/20/21 20:21 Allergies Coded Allergies: No Known Allergies (Verified , 10/27/05) ALISHA ERICKSON NP February 23, 2021 09:59
[2021-02-23 16:29] VITALS: BP 129/79
[2021-02-23] MEDS: POLYVINYL ALCOHOL OPHTH SOLN 15 ML(LIQUITEARS) OU PRN (17:58)
[2021-02-23] MEDS: SODIUM CHLORIDE NASAL 0.65% SPRAY BTL (OCEAN) PRN (17:59)
[2021-02-23] MEDS: DOCUSATE SODIUM 100MG CAPSULE PO PRN (21:00)
[2021-02-23] MEDS: BENZTROPINE 0.5 MG TAB PO PRN (21:00)
[2021-02-23] MEDS: clonazePAM 1 MG TAB PO PRN (21:59)
[2021-02-24] MEDS: clonazePAM 1 MG TAB PO PRN ×2 (07:18→22:41)
[2021-02-24] MEDS: DOCUSATE SODIUM 100MG CAPSULE PO PRN ×2 (07:19→22:42)
[2021-02-24] MEDS: ATORVASTATIN 20 MG TAB PO SCH (07:19)
[2021-02-24] MEDS: QUEtiapine FUMARATE 50MG TAB PO SCH ×2 (07:19→23:35)
[2021-02-24] MEDS: BENZTROPINE 0.5 MG TAB PO PRN ×2 (07:20→22:42)
[2021-02-24] MEDS: SODIUM CHLORIDE NASAL 0.65% SPRAY BTL (OCEAN) PRN (08:36)
[2021-02-24] MEDS: POLYVINYL ALCOHOL OPHTH SOLN 15 ML(LIQUITEARS) OU PRN (08:36)
[2021-02-24 16:14] VITALS: BP 122/72
[2021-02-25 06:27] VITALS: BP 119/75
[2021-02-25] MEDS: DOCUSATE SODIUM 100MG CAPSULE PO PRN ×2 (08:12→20:47)
[2021-02-25] MEDS: clonazePAM 1 MG TAB PO PRN ×2 (08:12→20:47)
[2021-02-25] MEDS: QUEtiapine FUMARATE 50MG TAB PO SCH ×2 (08:13→23:11)
[2021-02-25] MEDS: BENZTROPINE 0.5 MG TAB PO PRN ×2 (08:13→20:47)
[2021-02-25] MEDS: ATORVASTATIN 20 MG TAB PO SCH (08:13)
[2021-02-25 16:24] VITALS: BP 128/79
--- NOTE | 2021-02-25 19:17 | ECGEPIP ---
[facility] Test Date: 2021-02-25 Pat Name: LUC HURTADO Department: Room: [place] [address] Gender: Male Quality Improvement Specialist: UNIQUE : 1960 Requested By: ALISHA ERICKSON Order Number: [id number] Reading MD: Dayo Mckinney Measurements Intervals [place] Rate: 81 P: 54 AK: 152 QRS: 50 QRSD: 78 T: 60 QT: 354 QTc: 411 Interpretive Statements Normal sinus rhythm Delayed anterior R wave progression No significant change when compared to prior tracing of 07/20/2019 Electronically Signed on 02-25-2021 19:16:46 EDT by Dayo Mckinney
[2021-02-26 06:47] VITALS: BP 126/74
[2021-02-26] MEDS: QUEtiapine FUMARATE 50MG TAB PO SCH ×2 (08:05→22:42)
[2021-02-26] MEDS: BENZTROPINE 0.5 MG TAB PO PRN ×2 (08:05→22:42)
[2021-02-26] MEDS: ATORVASTATIN 20 MG TAB PO SCH (08:05)
[2021-02-26] MEDS: DOCUSATE SODIUM 100MG CAPSULE PO PRN ×2 (08:50→22:42)
[2021-02-26] MEDS: clonazePAM 1 MG TAB PO PRN ×2 (09:02→22:42)
[2021-02-26] MEDS: SODIUM CHLORIDE NASAL 0.65% SPRAY BTL (OCEAN) PRN (14:03)
[2021-02-26] MEDS: POLYVINYL ALCOHOL OPHTH SOLN 15 ML(LIQUITEARS) OU PRN (14:03)
[2021-02-26 19:23] VITALS: BP 140/73
[2021-02-27] MEDS: NAPROXEN 250 MG TAB PO PRN (03:30)
[2021-02-27] MEDS: BENZTROPINE 0.5 MG TAB PO PRN ×2 (08:46→22:25)
[2021-02-27] MEDS: QUEtiapine FUMARATE 50MG TAB PO SCH ×2 (08:47→22:26)
[2021-02-27] MEDS: ATORVASTATIN 20 MG TAB PO SCH (08:47)
[2021-02-27] MEDS: DOCUSATE SODIUM 100MG CAPSULE PO PRN ×2 (08:47→22:25)
[2021-02-27] MEDS: clonazePAM 1 MG TAB PO PRN ×2 (08:48→22:27)
[2021-02-27] MEDS: SODIUM CHLORIDE NASAL 0.65% SPRAY BTL (OCEAN) PRN (13:27)
[2021-02-27] MEDS: POLYVINYL ALCOHOL OPHTH SOLN 15 ML(LIQUITEARS) OU PRN (13:27)
--- NOTE | 2021-02-27 14:52 | MHIPNPDOC ---
[facility] Progress Note Progress Note DATE OF SERVICE: 02/27/21 HISTORY: Patient is a 60 -year-old Single, Unemployed, Domiciled , male, who presents to [facility] after he was picked up by law enforcement on a 9.45 initiated by Elidia Galicia from [facility]. Dr. Sin Glaser reported that patient has been decompensating and threatened to burn down the structure in the community. He is also fixated on a blood infection in his knee. Per Elidia Galicia patient had left multiple messages demanding an antibiotic. Patient states that he has no idea why he is here, he has rapid, pressure speech with severe flight of ideas. Patient believes that he needs medications for an infection in his knees. He presents with tangential, hyperverbal, pressure speech, manic, paranoid and delusional behaviors. He is agitated in the interview, at times threatening if he does not get the medications he demand. Also states that he will not accept Haldol or Zyprexa. He finally agreed to take Prolixin and states that he wants to receive his Prolixin Decanoate injection. PER ED REPORT: Elidia Galicia from [facility] called stating that Dr. Sin Glaser issued a fish bait picker order due to Pat feeling that pt has been decompensating. Pat reports that pt threatened to burn down a structure in the community as well as being extremely fixated on having a blood infection in his knee. Per Elidia pt has left multiple messages at his drs office demanding an antibiotic. Pt talks very rapid, rambles and talks in circles. Pt has to be redirected several different times. 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 Pt also believes that there is freon coming from the air vent in his room and believes that [facility] employees are poisoning him. Pt is very difficult to understand because, of his rapid speech. Pt continues to talk abo ut medical conditions that he has and is very fixated on "how to make babies". Pt asked tw several times "do you want to make a baby with me? How do you make a baby anyways". Pt redirected pt again. Pt is very paranoid and wants to read everything tw wrote during our discussion. Tw accommodated, pt was happy that I let him see the notes. Pt begins talking about his home and landlord. pt reports having a good relationship with his landlord and at times he will begin saying something and then retract the comment and say "oh, I can't say that, that sounds crazy". Pt reports that he lives by himself and that he feels that his biggest support is his best friend Petar. Pt begins to ramble about how he had an affair with Petar's and gave her herpes. Pt reports good appetite and sleep. Pt denies AH/VH. Pt appears to be internally preoccupied; pt is talking to himself in the room. Pt will address others when asked who he is talking to. VITAL SIGNS: See below. CURRENT MEDICATIONS: See below. MENTAL STATUS EXAMINATION: gail is a 60 -year-old Single, Unemployed, Domiciled , male, who presents to [facility] after he was picked up by law enforcement on a 9.45 initiated by Elidia Galicia from [facility]. Dr. Sin Glaser reported that patient has been decompensating and threatened to burn down the structure in the community and has delusional thoughts about having an infected knee Appearance: well-kempt, wearing hospital scrubs. Eye contact is drowsy Speech:garbled and fast Language skills are intact Thought processes including:scattered at times Thought content: denies depression and anxiety. Denies suicidal/homicidal ideation, planning or intent. Abstract reasoning, and computation: fair Description of associations: flight of ideas, grandiose Description of abnormal or psychotic thoughts: grandiosity, mu-ism preoccupation, flight of ideas Judgment: improving Insight: improving Orientation: alert and oriented to person, place Recent and remote memory: fair Attention span and concentration: good Language: expansive Fund of knowledge: average Mood: Labile Mood Affect: Flat DIAGNOSES: Bipolar I Disorder, current episode, manic Nicotine Use Disorder Hypothyroid HTN ASSESSMENT: patient is less manic today, his speech while slower is improving. He reports that his thoughts are better. He is less grandiose, less manic and although his speech is slurred he is having less flight of ideas. Patient rescinded his request for court and is willing to stay another "two weeks until he can stab ilize" Patient does appear to be somewhat drowsy in the interview, but when this is pointed out he denies this. MANAGEMENT PLAN: Continue all medications as ordered, discharge is pending TIME SPENT: 25 minutes. Vital Signs Vital Signs Date Time Temp Pulse Resp B/P (MAP) Pulse Ox O2 Delivery O2 Flow Rate FiO2 02/27/21 09:20 Room Air 02/26/21 19:23 98.1 91 20 140/73 (95) 02/26/21 06:47 97 Current Medications Current Medications Medications (Trade) Dose Ordered Sig/Vivienne Route PRN Reason Start Time Stop Time Status Last Admin Dose Admin Acetaminophen (Tylenol Tab) 650 mg Q6HP PRN PO HEADACHE or DISCOMFORT 02/14/21 18:15 02/16/21 10:20 DC Al Hydrox/Mg Hydrox/Simethicone (Mylanta) 30 ml Q4HP PRN PO HEARTBURN/INDIGESTION 02/14/21 18:15 Artificial Tears (Akwa Tears) 2 drop TIDP PRN OU DRY EYES 02/19/21 08:30 02/27/21 13:27 Atorvastatin Calcium (Lipitor) 20 mg DAILY PO 02/16/21 09:00 02/27/21 08:47 Benztropine Mesylate (Cogentin) 0.5 mg BIDP PRN PO EPS 02/15/21 14:15 02/27/21 08:46 Clonazepam (KlonoPIN) 1 mg BIDP PRN PO anxiety/agitation 02/23/21 09:00 02/27/21 08:48 Docusate Sodium (Colace) 200 mg BIDP PRN PO CONSTIPATION 02/19/21 08:30 02/27/21 08:47 Fluphenazine Decanoate (Prolixin Decanoate) 25 mg Q28D@12 IM 02/19/21 12:00 02/19/21 12:53 Fluphenazine HCl (Prolixin) 10 mg BID PO 02/15/21 09:00 02/21/21 08:40 DC 02/21/21 08:09 Fluphenazine HCl (Prolixin) 10 mg QHS PO 02/21/21 21:00 02/22/21 11:20 DC 02/21/21 20:07 Haloperidol (Haldol) 5 mg Q6HP PRN PO AGITATION 02/15/21 14:15 02/22/21 12:01 Lorazepam (Ativan) 1 mg Q4HP PRN PO ANXIETY/AGITATION 02/14/21 23:10 02/15/21 14:20 DC 02/15/21 12:36 Lorazepam (Ativan) 2 mg Q6H PO 02/15/21 18:00 02/15/21 14:23 DC Lorazepam (Ativan) 2 mg Q6HP PRN PO ANXIETY/AGITATION 02/15/21 14:25 02/22/21 23:09 Magnesium Hydroxide (Milk Of Magnesia) 30 ml DAILYPRN PRN PO CONSTIPATION 02/14/21 18:15 02/21/21 14:25 Miscellaneous (Unresolved Clarification Entry) SEE LABEL COMMENTS DAILY XX 02/27/21 09:00 02/27/21 14:11 DC Naproxen (Naprosyn) 500 mg BIDP PRN PO PAIN 02/16/21 10:20 02/27/21 03:30 Nicotine (Nicoderm Cq 21mg) 1 patch DAILY TD 02/15/21 09:00 02/19/21 15:19 DC Olanzapine (ZyPREXA ZYDIS) 5 mg Q4HP PRN PO ANXIETY/AGITATION 02/14/21 18:15 Quetiapine Fumarate (SEROquel) 50 mg QAM PO 02/23/21 09:00 02/27/21 08:47 Quetiapine Fumarate (SEROquel) 50 mg QHS PO 02/22/21 21:00 02/26/21 22:42 Quetiapine Fumarate (SEROquel) 100 mg QHS PO 02/22/21 21:00 02/22/21 12:18 DC Sodium Chloride ([place] Nasal [place]) 2 spray Q2HP PRN NA NASAL DRYNESS 02/19/21 08:30 02/27/21 13:27 Trazodone HCl (Desyrel) 50 mg QHSP PRN PO INSOMNIA 02/14/21 18:15 02/20/21 20:21 Allergies Coded Allergies: No Known Allergies (Verified , 10/27/05) ALISHA ERICKSON TELECOMMUNICATIONS MANAGER Feb 27, 2021 14:52
[2021-02-27 18:10] VITALS: BP 135/79
[2021-02-28 06:00] VITALS: BP 142/82
[2021-02-28] MEDS: QUEtiapine FUMARATE 50MG TAB PO SCH ×2 (08:07→22:08)
[2021-02-28] MEDS: clonazePAM 1 MG TAB PO PRN ×2 (08:07→22:09)
[2021-02-28] MEDS: ATORVASTATIN 20 MG TAB PO SCH (08:07)
[2021-02-28] MEDS: BENZTROPINE 0.5 MG TAB PO PRN ×2 (08:07→22:08)
[2021-02-28] MEDS: DOCUSATE SODIUM 100MG CAPSULE PO PRN ×2 (08:07→22:08)
--- NOTE | 2021-02-28 15:25 | MHIPNPDOC ---
[facility] Progress Note Progress Note DATE OF SERVICE: 02/28/21 HISTORY: Patient is a 60 -year-old Single, Unemployed, Domiciled , male, who presents to [facility] after he was picked up by law enforcement on a 9.45 initiated by Elidia Galicia from [facility]. Dr. Sin Glaser reported that patient has been decompensating and threatened to burn down the structure in the community. He is also fixated on a blood infection in his knee. Per Elidia Galicia patient had left multiple messages demanding an antibiotic. Patient states that he has no idea why he is here, he has rapid, pressure speech with severe flight of ideas. Patient believes that he needs medications for an infection in his knees. He presents with tangential, hyperverbal, pressure speech, manic, paranoid and delusional behaviors. He is agitated in the interview, at times threatening if he does not get the medications he demand. Also states that he will not accept Haldol or Zyprexa. He finally agreed to take Prolixin and states that he wants to receive his Prolixin Decanoate injection. PER ED REPORT: Elidia Galicia from [facility] called stating that Dr. Sin Glaser issued a picker packer order due to Pat feeling that pt has been decompensating. Pat reports that pt threatened to burn down a structure in the community as well as being extremely fixated on having a blood infection in his knee. Per Elidia pt has left multiple messages at his drs office demanding an antibiotic. Pt talks very rapid, rambles and talks in circles. Pt has to be redirected several different times. 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 Pt also believes that there is freon coming from the air vent in his room and believes that [facility] employees are poisoning him. Pt is very difficult to understand because, of his rapid speech. Pt continues to talk abo ut medical conditions that he has and is very fixated on "how to make babies". Pt asked tw several times "do you want to make a baby with me? How do you make a baby anyways". Pt redirected pt again. Pt is very paranoid and wants to read everything tw wrote during our discussion. Tw accommodated, pt was happy that I let him see the notes. Pt begins talking about his home and landlord. pt reports having a good relationship with his landlord and at times he will begin saying something and then retract the comment and say "oh, I can't say that, that sounds crazy". Pt reports that he lives by himself and that he feels that his biggest support is his best friend Petar. Pt begins to ramble about how he had an affair with Petar's and gave her herpes. Pt reports good appetite and sleep. Pt denies AH/VH. Pt appears to be internally preoccupied; pt is talking to himself in the room. Pt will address others when asked who he is talking to. VITAL SIGNS: See below. CURRENT MEDICATIONS: See below. MENTAL STATUS EXAMINATION: gail is a 60 -year-old Single, Unemployed, Domiciled , male, who presents to [facility] after he was picked up by law enforcement on a 9.45 initiated [facility]. Appearance: well-kempt, shorts and T-shirt. Eye contact is maintained Speech: more normal in pace, less rapid Language skills are intact Thought processes including: more organized Thought content: denies depression and anxiety. Denies suicidal/homicidal ideation, planning or intent. Abstract reasoning, and computation: fair Description of associations: flight of ideas, grandiose Description of abnormal or psychotic thoughts: grandiosity, mild flight of ideas, some ruminations Judgment: improving Insight: improving Orientation: alert and oriented to person, place Recent and remote memory: fair Attention span and concentration: good Language: expansive Fund of knowledge: average Mood: milder labile mood Affect: Flat DIAGNOSES: Bipolar I Disorder, current episode, manic Nicotine Use Disorder Hypothyroid HTN ASSESSMENT: patient is less manic today, his speech is slower. He states that he needs a witness and asked an RN to stand by because he did not want to be hurt. States that the medications are "good and the Seroquel is helping him sleep and slow down." When asked about his aggression and agitation yesterday, he reports that he was addressing staff who were being "insubordinate" states that he was angered by their directions for him. He continues to be grandiose and ruminates about his knee. Patient is observed to be improving, continues to have scattered thinking but he is much more stable and he is probably stable for discharge on Friday MANAGEMENT PLAN: Continue all medications as ordered, discharge is pending for Friday TIME SPENT: 25 minutes. Vital Signs Vital Signs Date Time Temp Pulse Resp B/P (MAP) Pulse Ox O2 Delivery O2 Flow Rate FiO2 02/28/21 10:03 Room Air 02/28/21 06:00 97.8 80 18 142/82 (102) 97 Current Medications Current Medications Medications (Trade) Dose Ordered Sig/Vivienne Route PRN Reason Start Time Stop Time Status Last Admin Dose Admin Acetaminophen (Tylenol Tab) 650 mg Q6HP PRN PO HEADACHE or DISCOMFORT 02/14/21 18:15 02/16/21 10:20 DC Al Hydrox/Mg Hydrox/Simethicone (Mylanta) 30 ml Q4HP PRN PO HEARTBURN/INDIGESTION 02/14/21 18:15 Artificial Tears (Akwa Tears) 2 drop TIDP PRN OU DRY EYES 02/19/21 08:30 02/27/21 13:27 Atorvastatin Calcium (Lipitor) 20 mg DAILY PO 02/16/21 09:00 02/28/21 08:07 Benztropine Mesylate (Cogentin) 0.5 mg BIDP PRN PO EPS 02/15/21 14:15 02/28/21 08:07 Clonazepam (KlonoPIN) 1 mg BIDP PRN PO anxiety/agitation 02/23/21 09:00 02/28/21 08:07 Docusate Sodium (Colace) 200 mg BIDP PRN PO CONSTIPATION 02/19/21 08:30 02/28/21 08:07 Fluphenazine Decanoate (Prolixin Decanoate) 25 mg Q28D@12 IM 02/19/21 12:00 02/19/21 12:53 Fluphenazine HCl (Prolixin) 10 mg BID PO 02/15/21 09:00 02/21/21 08:40 DC 02/21/21 08:09 Fluphenazine HCl (Prolixin) 10 mg QHS PO 02/21/21 21:00 02/22/21 11:20 DC 02/21/21 20:07 Haloperidol (Haldol) 5 mg Q6HP PRN PO AGITATION 02/15/21 14:15 02/22/21 12:01 Lorazepam (Ativan) 1 mg Q4HP PRN PO ANXIETY/AGITATION 02/14/21 23:10 02/15/21 14:20 DC 02/15/21 12:36 Lorazepam (Ativan) 2 mg Q6H PO 02/15/21 18:00 02/15/21 14:23 DC Lorazepam (Ativan) 2 mg Q6HP PRN PO ANXIETY/AGITATION 02/15/21 14:25 02/27/21 15:13 DC 02/22/21 23:09 Magnesium Hydroxide (Milk Of Magnesia) 30 ml DAILYPRN PRN PO CONSTIPATION 02/14/21 18:15 02/21/21 14:25 Miscellaneous (Unresolved Clarification Entry) SEE LABEL COMMENTS DAILY XX 02/27/21 09:00 02/27/21 14:11 DC Naproxen (Naprosyn) 500 mg BIDP PRN PO PAIN 02/16/21 10:20 02/27/21 03:30 Nicotine (Nicoderm Cq 21mg) 1 patch DAILY TD 02/15/21 09:00 02/19/21 15:19 DC Olanzapine (ZyPREXA ZYDIS) 5 mg Q4HP PRN PO ANXIETY/AGITATION 02/14/21 18:15 Quetiapine Fumarate (SEROquel) 50 mg QAM PO 02/23/21 09:00 02/28/21 08:07 Quetiapine Fumarate (SEROquel) 50 mg QHS PO 02/22/21 21:00 02/27/21 22:26 Quetiapine Fumarate (SEROquel) 100 mg QHS PO 02/22/21 21:00 02/22/21 12:18 DC Sodium Chloride ([place] Nasal [place]) 2 spray Q2HP PRN NA NASAL DRYNESS 02/19/21 08:30 02/27/21 13:27 Trazodone HCl (Desyrel) 50 mg QHSP PRN PO INSOMNIA 02/14/21 18:15 02/20/21 20:21 Allergies Coded Allergies: No Known Allergies (Verified , 10/27/05) ALISHA ERICKSON PATIENT COORDINATOR FRONT DESK Feb 28, 2021 15:25
[2021-02-28 17:08] VITALS: BP 126/80
[2021-03-01 07:22] VITALS: BP 134/72
[2021-03-01] MEDS: clonazePAM 1 MG TAB PO PRN ×2 (08:30→22:51)
[2021-03-01] MEDS: DOCUSATE SODIUM 100MG CAPSULE PO PRN ×2 (08:30→22:51)
[2021-03-01] MEDS: BENZTROPINE 0.5 MG TAB PO PRN ×2 (08:30→22:50)
[2021-03-01] MEDS: QUEtiapine FUMARATE 50MG TAB PO SCH ×2 (08:30→22:51)
[2021-03-01] MEDS: ATORVASTATIN 20 MG TAB PO SCH (08:30)
--- NOTE | 2021-03-01 10:41 | MHIPNPDOC ---
[facility] Progress Note Progress Note DATE OF SERVICE: 03/01/21 HISTORY: Patient is a 60 -year-old Single, Unemployed, Domiciled , male, who presents to [facility] after he was picked up by law enforcement on a 9.45 initiated by Elidia Galicia from [facility]. Dr. Sin Glaser reported that patient has been decompensating and threatened to burn down the structure in the community. He is also fixated on a blood infection in his knee. Per Elidia Galicia patient had left multiple messages demanding an antibiotic. Patient states that he has no idea why he is here, he has rapid, pressure speech with severe flight of ideas. Patient believes that he needs medications for an infection in his knees. He presents with tangential, hyperverbal, pressure speech, manic, paranoid and delusional behaviors. He is agitated in the interview, at times threatening if he does not get the medications he demand. Also states that he will not accept Haldol or Zyprexa. He finally agreed to take Prolixin and states that he wants to receive his Prolixin Decanoate injection. PER ED REPORT: Elidia Galicia from [facility] called stating that Dr. Sin Glaser issued a pick up operator order due to Pat feeling that pt has been decompensating. Pat reports that pt threatened to burn down a structure in the community as well as being extremely fixated on having a blood infection in his knee. Per Elidia pt has left multiple messages at his drs office demanding an antibiotic. Pt talks very rapid, rambles and talks in circles. Pt has to be redirected several different times. 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 Pt also believes that there is freon coming from the air vent in his room and believes that [facility] employees are poisoning him. Pt is very difficult to understand because, of his rapid speech. Pt continues to talk ab out medical conditions that he has and is very fixated on "how to make babies". Pt asked tw several times "do you want to make a baby with me? How do you make a baby anyways". Pt redirected pt again. Pt is very paranoid and wants to read everything tw wrote during our discussion. Tw accommodated, pt was happy that I let him see the notes. Pt begins talking about his home and landlord. pt reports having a good relationship with his landlord and at times he will begin saying something and then retract the comment and say "oh, I can't say that, that sounds crazy". Pt reports that he lives by himself and that he feels that his biggest support is his best friend Petar. Pt begins to ramble about how he had an affair with Petar's and gave her herpes. Pt reports good appetite and sleep. Pt denies AH/VH. Pt appears to be internally preoccupied; pt is talking to himself in the room. Pt will address others when asked who he is talking to. VITAL SIGNS: See below. CURRENT MEDICATIONS: See below. MENTAL STATUS EXAMINATION: gail is a 60 -year-old Single, Unemployed, Domiciled , male, who presents to [facility] after he was picked up by law enforcement on a 9.45 initiated by Elidia Galicia from [facility]. Appearance: well-kempt, shorts and T-shirt. Eye contact is maintained Speech: slow, low tone and volume Language skills are intact Thought processes including: more organized Thought content: denies depression and anxiety. Denies suicidal/homicidal ideation, planning or intent. Abstract reasoning, and computation: fair Description of associations: some mild grandiosity Description of abnormal or psychotic thoughts: grandiosity Judgment: improving Insight: improving Orientation: alert and oriented to person, place Recent and remote memory: fair Attention span and concentration: good Language: expansive Fund of knowledge: average Mood: Euthymic Affect: Flat DIAGNOSES: Bipolar I Disorder, current episode, manic Nicotine Use Disorder Hypothyroid HTN ASSESSMENT: Patient appears calmer today. His speech has slowed down markedly. Doesn't appear to be a danger to himself or others. Patient is motivated to return home, states tht he needs to clean the apartment because when the police came, they were very rough with him. He states that he was compliant with them and that he was following their orders. He is worried about his cat. He states that in the future he will not allow his "mouth" to get away from him. States that he was not in agreement with his outside provider and that he was not listening to his complaints and he became agitated and was using profanities with this doctor. He states that in the future he will be more careful with his choice of words. He says he was ready to be discharged a long time ago. He appears to be excited to return home. He meets criteria for discharge tomorrow by the treatment team. MANAGEMENT PLAN: Continue all medications as ordered, discharge Friday TIME SPENT: 25 minutes. Vital Signs Vital Signs Date Time Temp Pulse Resp B/P (MAP) Pulse Ox O2 Delivery O2 Flow Rate FiO2 03/01/21 07:22 97.5 81 18 134/72 (92) 98 Room Air Current Medications Current Medications Medications (Trade) Dose Ordered Sig/Vivienne Route PRN Reason Start Time Stop Time Status Last Admin Dose Admin Acetaminophen (Tylenol Tab) 650 mg Q6HP PRN PO HEADACHE or DISCOMFORT 02/14/21 18:15 02/16/21 10:20 DC Al Hydrox/Mg Hydrox/Simethicone (Mylanta) 30 ml Q4HP PRN PO HEARTBURN/INDIGESTION 02/14/21 18:15 Artificial Tears ([place]wa Tears) 2 drop TIDP PRN OU DRY EYES 02/19/21 08:30 02/27/21 13:27 Atorvastatin Calcium (Lipitor) 20 mg DAILY PO 02/16/21 09:00 03/01/21 08:30 Benztropine Mesylate (Cogentin) 0.5 mg BIDP PRN PO EPS 02/15/21 14:15 03/01/21 08:30 Clonazepam (KlonoPIN) 1 mg BIDP PRN PO anxiety/agitation 02/23/21 09:00 03/01/21 08:30 Docusate Sodium (Colace) 200 mg BIDP PRN PO CONSTIPATION 02/19/21 08:30 03/01/21 08:30 Fluphenazine Decanoate (Prolixin Decanoate) 25 mg Q28D@12 IM 02/19/21 12:00 02/19/21 12:53 Fluphenazine HCl (Prolixin) 10 mg BID PO 02/15/21 09:00 02/21/21 08:40 DC 02/21/21 08:09 Fluphenazine HCl (Prolixin) 10 mg QHS PO 02/21/21 21:00 02/22/21 11:20 DC 02/21/21 20:07 Haloperidol (Haldol) 5 mg Q6HP PRN PO AGITATION 02/15/21 14:15 02/22/21 12:01 Lorazepam (Ativan) 1 mg Q4HP PRN PO ANXIETY/AGITATION 02/14/21 23:10 02/15/21 14:20 DC 02/15/21 12:36 Lorazepam (Ativan) 2 mg Q6H PO 02/15/21 18:00 02/15/21 14:23 DC Lorazepam (Ativan) 2 mg Q6HP PRN PO ANXIETY/AGITATION 02/15/21 14:25 02/27/21 15:13 DC 02/22/21 23:09 Magnesium Hydroxide (Milk Of Magnesia) 30 ml DAILYPRN PRN PO CONSTIPATION 02/14/21 18:15 02/21/21 14:25 Miscellaneous (Unresolved Clarification Entry) SEE LABEL COMMENTS DAILY XX 02/27/21 09:00 02/27/21 14:11 DC Miscellaneous (Unresolved Clarification Entry) SEE LABEL COMMENTS DAILY XX 03/01/21 09:00 Naproxen (Naprosyn) 500 mg BIDP PRN PO PAIN 02/16/21 10:20 02/27/21 03:30 Nicotine (Nicoderm Cq 21mg) 1 patch DAILY TD 02/15/21 09:00 02/19/21 15:19 DC Olanzapine (ZyPREXA ZYDIS) 5 mg Q4HP PRN PO ANXIETY/AGITATION 02/14/21 18:15 Quetiapine Fumarate (SEROquel) 50 mg QAM PO 02/23/21 09:00 03/01/21 08:30 Quetiapine Fumarate (SEROquel) 50 mg QHS PO 02/22/21 21:00 02/28/21 22:08 Quetiapine Fumarate (SEROquel) 100 mg QHS PO 02/22/21 21:00 02/22/21 12:18 DC Sodium Chloride ([place] Nasal [place]) 2 spray Q2HP PRN NA NASAL DRYNESS 02/19/21 08:30 02/27/21 13:27 Trazodone HCl (Desyrel) 50 mg QHSP PRN PO INSOMNIA 02/14/21 18:15 02/20/21 20:21 Allergies Coded Allergies: No Known Allergies (Verified , 10/27/05) ALISHA ERICKSON UTILIZATION SPECIALIST Mar 01, 2021 10:41
[2021-03-01] MEDS: POLYVINYL ALCOHOL OPHTH SOLN 15 ML(LIQUITEARS) OU PRN (15:57)
[2021-03-01] MEDS: SODIUM CHLORIDE NASAL 0.65% SPRAY BTL (OCEAN) PRN (15:57)
[2021-03-01 16:13] VITALS: BP 140/77
[2021-03-02 06:43] VITALS: BP 104/78
[2021-03-02] MEDS: POLYVINYL ALCOHOL OPHTH SOLN 15 ML(LIQUITEARS) OU PRN (08:27)
[2021-03-02] MEDS: SODIUM CHLORIDE NASAL 0.65% SPRAY BTL (OCEAN) PRN (08:27)
[2021-03-02] MEDS: QUEtiapine FUMARATE 50MG TAB PO SCH (08:28)
[2021-03-02] MEDS: BENZTROPINE 0.5 MG TAB PO PRN (08:28)
[2021-03-02] MEDS: ATORVASTATIN 20 MG TAB PO SCH (08:28)
[2021-03-02] MEDS: DOCUSATE SODIUM 100MG CAPSULE PO PRN (08:30)
[2021-03-02] MEDS ORDERED: ATOR1TAB21 PO ×2 (09:28→13:25)
[2021-03-02] MEDS ORDERED: QUET50TA3 PO (09:28)
[2021-03-02] MEDS ORDERED: BENZ0.5T23 PO ×2 (09:28→13:25)
[2021-03-02] MEDS ORDERED: NAPR-849 PO (09:28)
[2021-03-02] MEDS ORDERED: CLON1TAB8 PO ×2 (09:28→13:25)
[2021-03-02] MEDS ORDERED: DOK1CAP7 PO (09:28)
[2021-03-02] MEDS ORDERED: POLYOPD OU (09:28)
[2021-03-02] MEDS ORDERED: MM S100C PO (13:25)
[2021-03-02] MEDS ORDERED: NAPR500T6 PO (13:25)
[2021-03-02] MEDS ORDERED: AKWASOL OP (13:25)
[2021-03-02] MEDS ORDERED: SERO50TA PO (13:25)
[2021-03-02] MEDS ORDERED: FLUP25VL IM (13:56)
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
== END 2021-03-02 11:56 | disposition home or self-care (01) | DRG 885 ==
LOC: M ED 11:01 → M ED INP 18:13 → M PSY 21:10
PROVIDERS: ADMIT Psychiatry & Neurology Psychiatry; ATTEND Psychiatry & Neurology Psychiatry
DX: F31.2 Bipolar disorder, current episode manic severe with psychotic features (principal); F17.210 Nicotine dependence, cigarettes, uncomplicated; E03.9 Hypothyroidism, unspecified; I10 Essential (primary) hypertension; F20.9 Schizophrenia, unspecified; M25.562 Pain in left knee; F14.11 Cocaine abuse, in remission; F12.11 Cannabis abuse, in remission; Z20.822 Contact with and (suspected) exposure to COVID-19; Z79.899 Other long term (current) drug therapy; F52.8 Other sexual dysfunction not due to a substance or known physiological condition

== ENCOUNTER 2021-05-03 14:28 | Inpatient (IN) | payer MEDICARE ==
[~2021-05-03 14:28] MED LIST changes: +AKWASOL OP; +ATOR1TAB21 PO; +BENZ0.5T23 PO; +DOK1CAP4 PO; +MM S100C PO; +NAPR-849 PO; +NAPR500T6 PO; +POLYOPD OU; +QUET50TA4 PO; +SERO50TA PO
[2021-05-03] MEDS ORDERED: diphenhydrAMINE 50MG/ML VIAL (J1200) IM ONE (15:30)
[2021-05-03] MEDS ORDERED: LORazepam 2 MG/ML VIAL IM ONE (15:30)
[2021-05-03] MEDS ORDERED: HALOPERIDOL 5MG/ML VIAL (J1630 PER 1) IM ONE (15:30)
[2021-05-03 16:02] LABS: HEMATOCRIT 42.9 % (42.0-52.0); HEMOGLOBIN 14.3 g/dl (13.5-17.5); MEAN CORPUSCULAR HEMOGLOBIN 30.4 pg (27.0-33.0); MEAN CORPUSCULAR HGB CONC 33.3 g/dl (32.0-36.5); MEAN CORPUSCULAR VOLUME 91.3 fl (80.0-96.0); PLATELET COUNT, AUTOMATED 329 10^3/uL (150-450); WHITE BLOOD COUNT 10.6 10^3/uL (4.0-10.0)
[2021-05-03 16:25] LABS: AMPHETAMINES LEVEL URINE POSITIVE (NEGATIVE); BARBITURATES URINE NEGATIVE (NEGATIVE); BENZODIAZEPINES URINE NEGATIVE (NEGATIVE); CANNABINOIDS URINE POSITIVE (NEGATIVE); COCAINE METABOLITE URINE NEGATIVE (NEGATIVE); METHADONE URINE NEGATIVE (NEGATIVE); OPIATES URINE NEGATIVE (NEGATIVE); PHENCYCLIDINE URINE NEGATIVE (NEGATIVE)
[2021-05-03 16:38] LABS: ACETAMINOPHEN LEVEL < 2.0 UG/ML (10.0-30.0); ALT/SGPT 36 U/L (12-78); BILIRUBIN,DIRECT < 0.1 MG/DL (0.0-0.2); BILIRUBIN,TOTAL 0.3 MG/DL (0.2-1.0); BLOOD UREA NITROGEN 12 MG/DL (7-18); CALCIUM LEVEL 8.9 MG/DL (8.8-10.2); CARBON DIOXIDE LEVEL 29 MEQ/L (21-32); CHLORIDE LEVEL 104 MEQ/L (98-107); CREATININE FOR GFR 0.93 MG/DL (0.70-1.30); ETHYL ALCOHOL (ETHANOL) < 0.003 % (0.000-0.010); GLOMERULAR FILTRATION RATE > 60.0 (>49); GLUCOSE, FASTING 96 MG/DL (70-100); POTASSIUM SERUM 4.2 MEQ/L (3.5-5.1); SALICYLATE LEVEL 2.7 MG/DL (5.0-30.0); SODIUM LEVEL 140 MEQ/L (136-145); TOTAL PROTEIN 7.4 GM/DL (6.4-8.2)
[2021-05-03] MEDS ORDERED: CLON0.5T2 PO (20:07)
[2021-05-03] MEDS ORDERED: NAPR-1182 PO (20:07)
[2021-05-03] MEDS ORDERED: LEVO100T5 PO (20:07)
[2021-05-03] MEDS ORDERED: QUET50TA4 PO (20:07)
[2021-05-03] MEDS ORDERED: HOME MED LIST COMPLETE! XX SCH (20:10)
[2021-05-03] MEDS ORDERED: clonazePAM 1 MG TAB PO ONE (20:10)
[2021-05-04 02:37] LABS: RSV AMPLIFICATION NEGATIVE (NEGATIVE)
[2021-05-04] MEDS ORDERED: MAALOX 30 ML SUSP *UDC PO PRN (05:15)
[2021-05-04] MEDS ORDERED: OLANZapine ORAL DISINTEGRATING TAB 5MG PO PRN (05:15)
[2021-05-04] MEDS ORDERED: MOM 30ML SUSPENSION UDC PO PRN (05:15)
[2021-05-04] MEDS ORDERED: ACETAMINOPHEN TAB 650MG DOSE (2X325MG) PO PRN (05:15)
[2021-05-04] MEDS ORDERED: traZODone 50 MG TAB PO PRN (05:15)
[2021-05-04 08:38] VITALS: BP 120/80
--- NOTE | 2021-05-04 11:44 | MHHPEPDOC ---
General Date Of Admission: May 04, 2021 Legal Status: 9.39 Chief Complaint Patient admitted to unit due to manic, psychotic, and aggressive behaviors in the community. History of Present Illness HISTORY OF THE PRESENT ILLNESS: Patient is a 60 -year-old single, unemployed/disabled, , male, who was brought in on a 945 that was initiated by [facility]. He is familiar to this facility and has had similar presentations to this ED. patient was seen for a scheduled appointment and was very agitated, verbally and physically aggressive towards the staff posturing and yelling insults. He refused to de-escalate and subsequently law enforcement was called. In today's session patient reports that he was asked same questions multiple times and that this aggravated him and made him angry. PER ED REPORT: Pt. was brought to ER via [facility] on a 9.45 pick remover order issued by [facility]. Pt. was seen for scheduled appt today. Pt. became agitated, verbally and physically aggressive towards staff, posturing and yelling insults. Pt. would not deescalate and police were called. It was reported pt. speech was rapid, tangential and was religiously preoccupied. Pt. was cooperative with police after Taser was threatened. t. reports he was very upset with therapist today because he did not like him and was being asked same questions, only in a different way. It was apparent that pt. did not like therapist from the way he talked about him. Pt. speech is rapid, it is difficult to understand pt. at times. He does skip from topic to topic. He is redirectable. Pt. gets easily irritated, does apologize at times, then easily agitated again. He denies HI,SI. He denies AH/VH. Pt mood is very labile, laughing to anger in same sentence. Pt. reports he did smoke marijuana and did "a little" meth this morning because he has a lot to do and needed a pick me up. Pt. admits to increased anxiety recently. Pt. asked about his WBC, states it is usually elevated, is sure he has a blood infection, becomes agitated again when talking about it. Pt. stated something was being pushed through the air vents, when asked about that he made comparison of someone having to defecate and the intestines having to push it out. Pt. reports he did not take medication this morning. Psychiatric Review of Systems Depression (2 or more weeks): denies Vandana (4 or more days of): irritable/elevated mood, expansive mood, grandi osity, talkativity, pressured, flight of ideas, distractibility, engages in risky behavior Psychosis: paranoia, disorganization PTSD: denies Past Psychiatric History Previous Psychiatric Diagnosis: Bipolar, schizophrenia, psychosis, major depressive disorder with psychotic features. Previous Psychiatric Admissions: Patient has had multiple admissions to this hospital his last admission was 02/14/2021-03/02/2021 Suicide Attempts: Reports history of ideations and gestures. Psychiatric Follow-up: See [facility]. Psychiatric medications: Prolixin, Prolixin decanoate, Klonopin, Seroquel. Past Medical History Medical Problems Hypertension Left knee pain hypothyroid Allergies, no known drug allergies Head Injury: Yes Seizures: No Hospitalizations: Yes Surgeries: No Family Medical/Psychiatric HX Medical Problems Mothercancer, hypertension Psychiatric Disorders: No Addiction: No Suicide Attemps/Completions: No Addiction History nicotine (1 pack/day x 40 years), alcohol, cocaine (History), methamphetamines, other (Cannabis) Social History Childhood: Born in [facility]. Abuse/Trauma: Denies. Current Living Situation: Lives alone. Education: Did not graduate high's. Employment: Unemployed. Social Support: Poor supports. Legal: History. Marital: Single, . Mental Status Examination General Appearance: unkempt, disheveled, ds/not appear stated age, hospital scubs/clothing (He appears older) Build: average Demeanor: very figety Eye Contact: intense Activity: anxious Behavior: hyperactive Speech: slurred, other (Bizarre and nonsensical) Mood: irritable, hypomanic Affect: flat, disorganized Thought Process: loose, flight of ideas, derailment Thought Content (Delusions): bizarre, paranoia, delusions Thought Content (Other): preoccupied Thought Content (Aggressive): aggressive (assess) Perception (Hallucinations): none reported Perception (Other): none reported Cognition (Impairment of): memory, attention/concentration Cognition(Intelligence Est.): average Oriented: Awake, Alert Insight: poor Judgment: Poor Psychosis: Denies Diagnoses Bipolar 1 disorder, current episode, manic Methamphetamine use disorder Cannabis use disorder Nicotine use disorder hypothyroid Hypertension A-FIB/CHADSVASC A-FIB History Current/History of A-Fib/PAF?: No Current PO Anticoag Therapy: No Assessment Patient is a 60 -year-old single, unemployed/disabled, , male, who was brought in on a 945 that was initiated by [facility]. He is familiar to this facility and has had similar presentations to this ED. patient was seen for a scheduled appointment and was very agitated, verbally and physically aggressive towards the staff posturing and yelling insults. He refused to de-escalate and subsequently law enforcement was called. In today's session patient reports that he was asked same questions multiple times and that this aggravated him and made him angry. Patient is disheveled and appears older than his stated age he is hypomanic in mistrustful and his interview mildly agitated and hostile. His speech is rapid and slurred. Thought process is loose with flight of ideas, appears paranoid and delusional. He has poor attention concentration and his insight and judgment is poor. Treatment plan admit to my service on a 9.39 legal service diagnosis bipolar 1 disorder manic. Resume home medications. Patient afforded individual sessions with provider, group therapy, milieu and supportive therapies, medication management, and a safe environment. Patient to be discharged when he is stable Initial Treatment Plan 1. Patient was admitted on a [9.39] status. 2. Complete history was obtained. 3. With patients permission, family will be contacted and database will be expanded. 4. Patients medication regimen will be reviewed and changed accordingly. 5. Patient will be provided with protected environment. 6. Patient will be treated with individual, group, and milieu therapies. 7. Patient will receive supportive psych-education. 8. Discharge planning will commence immediately. 9. Outpatient follow-up treatment will be strongly recommended. 10. The initial treatment plan will focus initially on: * Depression. * Risk for suicide. ESTIMATED LENGTH OF STAY: 710 DAYS. TIME SPENT COUNSELING AND COORDINATING INITIAL CARE: minutes. Tobacco Cessation Screen Tobacco Cessation Tx Ordered?: Yes N/A-No Antipsychotics Vital Signs Vital Signs Date Time Temp Pulse Resp B/P (MAP) Pulse Ox O2 Delivery O2 Flow Rate FiO2 05/04/21 08:38 97.7 75 16 120/80 (93) 96 Room Air Laboratory Data 24H Labs Laboratory Tests 2 05/03/21 15:36: Nucleated Red Blood Cells % (auto) 0.0, Anion Gap 7L, Glomerular Filtration Rate > 60.0, Calcium Level 8.9, Total Bilirubin 0.3, Direct Bilirubin < 0.1, Aspartate Amino Transf (AST/SGOT) 24, Alanine Aminotransferase (ALT/SGPT) 36, Alkaline Phosphatase 107, Total Protein 7.4, Albumin 4.0, Albumin/Globulin Ratio 1.2, Thyroid Stimulating Hormone (TSH) 8.380H, Salicylates Level 2.7L, Urine Opiates Screen NEGATIVE, Urine Methadone Screen NEGATIVE, Acetaminophen Level < 2.0L, Urine Barbiturates Screen NEGATIVE, Urine Phencyclidine Screen NEGATIVE, Urine Amphetamines Screen POSITIVEH, Urine Benzodiazepines Screen NEGATIVE, Urine Cocaine Metabolite Screen NEGATIVE, Urine Cannabinoids Screen POSITIVEH, Ethyl Alcohol Level < 0.003 05/04/21 01:43: Coronavirus (COVID-19)(PCR) NEGATIVE, Influenza Type A (RT-PCR) NEGATIVE, Influenza Type B (RT-PCR) NEGATIVE, Respiratory Syncytial Virus (PCR) NEGATIVE CBC/BMP Laboratory Tests 05/03/21 15:36 Medications Scheduled Levothyroxine Sodium (Levothyroxine Sodium) 100 Mcg Tablet, 100 MCG PO DAILY, (Reported) Scheduled PRN Clonazepam (Clonazepam) 0.5 Mg Tablet, 0.5 MG PO BID PRN for ANXIETY, (Reported) Naproxen (EC-Naproxen) 500 Mg Tablet.dr, 500 MG PO BID PRN for MILD PAIN (PS 1- 4), (Reported) Quetiapine Fumarate (Quetiapine Fumarate) 50 Mg Tablet, 50 MG PO QHS PRN for SLEEP, (Reported) TAKE 1-2 TABLETS Allergies Coded Allergies: No Known Allergies (Verified , 10/27/05) ALISHA ERICKSON NP May 04, 2021 11:34
[2021-05-04] MEDS ORDERED: QUEtiapine FUMARATE 50MG TAB PO PRN (11:45)
[2021-05-04] MEDS: clonazePAM 0.5 MG TAB PO PRN ×2 (12:03→21:21)
[2021-05-04] MEDS: fluPHENAZine 5MG TABLET PO SCH ×2 (12:33→20:31)
--- NOTE | 2021-05-04 15:10 | HPEPDOC ---
[facility] Medical History & Physical Date of Admission May 03, 2021 Date of Service: May 04, 2021 History and Physical CHIEF COMPLAINT: Psychotic behavior HISTORY OF PRESENT ILLNESS: 60 -year-old male, who was brought in by [facility]. Patient was found to be agitated, verbally and physically aggressive towards staff. . He has had multiple presentations and admissions to this facility for similar behavior. On evaluation. He denied any symptoms. He was very restless.. He denies chest pain, shortness of breath, abdominal pain, nausea, vomiting, diarrhea, headaches or changes in vision. PAST MEDICAL HISTORY: Hypothyroidism Hypertension SOCIAL HISTORY: Reviewed and noncontributory. Patient denies alcohol, nicotine or illicit drug use. Review of records reveals history of nicotine abuse and crack cocaine use. FAMILY HISTORY: Reviewed and noncontributory. Patient states he is not aware of any medical issues with his parents. Review of records note hypertension and cancer for his mother. ALLERGIES: Please see below. REVIEW OF SYSTEMS: Negative except as per HPI HOME MEDICATIONS: Please see below. PHYSICAL EXAMINATION: General: NAD, sitting comfortably in chair, restless HEENT: NC/AT, EOMI Lungs: CTA B/L Heart: +S1S2, RRR Abd: soft, NT, +BS Ext: no edema Neuro: no gross focal deficits Psych: AAOx3 LABORATORY DATA: See below. MICROBIOLOGY: Please see below. A/P: 60-year-old male admitted for psychotic behavior with multiple admissions for similar behavior. #Psychosis - Follow as per primary team Thank you for this consultation. Please reconsult as needed. Vital Signs Vital Signs Date Time Temp Pulse Resp B/P (MAP) Pulse Ox O2 Delivery O2 Flow Rate FiO2 05/04/21 08:38 97.7 75 16 120/80 (93) 96 Room Air Laboratory Data Labs 24H Laboratory Tests 2 05/03/21 15:36: Nucleated Red Blood Cells % (auto) 0.0, Anion Gap 7L, Glomerular Filtration Rate > 60.0, Calcium Level 8.9, Total Bilirubin 0.3, Direct Bilirubin < 0.1, Aspartate Amino Transf (AST/SGOT) 24, Alanine Aminotransferase (ALT/SGPT) 36, Alkaline Phosphatase 107, Total Protein 7.4, Albumin 4.0, Albumin/Globulin Ratio 1.2, Thyroid Stimulating Hormone (TSH) 8.380H, Salicylates Level 2.7L, Urine Opiates Screen NEGATIVE, Urine Methadone Screen NEGATIVE, Acetaminophen Level < 2.0L, Urine Barbiturates Screen NEGATIVE, Urine Phencyclidine Screen NEGATIVE, Urine Amphetamines Screen POSITIVEH, Urine Benzodiazepines Screen NEGATIVE, Urine Cocaine Metabolite Screen NEGATIVE, Urine Cannabinoids Screen POSITIVEH, Ethyl Alcohol Level < 0.003 05/04/21 01:43: Coronavirus (COVID-19)(PCR) NEGATIVE, Influenza Type A (RT-PCR) NEGATIVE, Influenza Type B (RT-PCR) NEGATIVE, Respiratory Syncytial Virus (PCR) NEGATIVE CBC/BMP Laboratory Tests 05/03/21 15:36 Home Medications Scheduled Levothyroxine Sodium (Levothyroxine Sodium) 100 Mcg Tablet, 100 MCG PO DAILY Scheduled PRN Clonazepam (Clonazepam) 0.5 Mg Tablet, 0.5 MG PO BID PRN for ANXIETY Naproxen (EC-Naproxen) 500 Mg Tablet.dr, 500 MG PO BID PRN for MILD PAIN (PS 1- 4) Quetiapine Fumarate (Quetiapine Fumarate) 50 Mg Tablet, 50 MG PO QHS PRN for SLEEP TAKE 1-2 TABLETS Allergies Coded Allergies: No Known Allergies (Verified , 10/27/05) A-FIB/CHADSVASC A-FIB History Current/History of A-Fib/PAF?: No MIKE POLANCO MD May 04, 2021 15:10
[2021-05-04 16:30] VITALS: BP 138/94
[2021-05-05] MEDS: LEVOTHYROXINE 100MCG TABLET (0.1MG) PO SCH (06:17)
[2021-05-05 06:45] VITALS: BP 126/72
[2021-05-05] MEDS: clonazePAM 0.5 MG TAB PO PRN (07:14)
[2021-05-05] MEDS: fluPHENAZine 5MG TABLET PO SCH ×2 (08:22→21:00)
[2021-05-05] MEDS ORDERED: fluPHENAZine 5MG TABLET PO PRN (08:30)
[2021-05-05] MEDS ORDERED: diphenhydrAMINE 50MG CAP PO PRN (08:30)
--- NOTE | 2021-05-05 10:52 | MHIPNPDOC ---
[facility] Progress Note Progress Note DATE OF SERVICE: 05/05/21 Patient apparently refused his Prolixin yesterday and has been somewhat pressured and demanding and labile. On examination patient is pleasant initially but started to ramble about different topics and a very pressured flighty manner. He appears quite labile and disorganized but not aggressive assaultive. He is not giving any reason for refusing his Prolixin tablet. With we will start Seroquel 100 mg at bedtime and continue with Prolixin and Ativan as needed to control his agitation. HISTORY:. VITAL SIGNS: See below. NEW TEST RESULTS:. CURRENT MEDICATIONS: See below. MENTAL STATUS EXAMINATION: Patient is a 60-year old male, who is in no acute distress. Speech: Is pressured flighty. Language skills are poor. Thought processes including: Flighty and pressured. Thought content: Difficult to comprehend. Abstract reasoning, and computation:. Description of associations: Disorganized. Description of abnormal or psychotic thoughts: Grossly disorganized and fragmented. Judgment: Poor. Insight: poor]. Orientation: Appears oriented. Recent and remote memory: Difficult to evaluate. Attention span and concentration: Poor. Language:. Fund of knowledge:. Mood: Somewhat elevated and smiling inappropriately. Affect: Labile and inappropriate. DIAGNOSES: 1.. Bipolar disorder manic 2.. 3.. ASSESSMENT: Patient remains disorganized refused his Prolixin MANAGEMENT PLAN: Stabilized with medications and supportive therapy. TIME SPENT: 15 minutes. Vital Signs Vital Signs Date Time Temp Pulse Resp B/P (MAP) Pulse Ox O2 Delivery O2 Flow Rate FiO2 05/05/21 06:45 97.6 18 18 126/72 (90) 98 Room Air Current Medications Current Medications Medications (Trade) Dose Ordered Sig/Vivienne Route PRN Reason Start Time Stop Time Status Last Admin Dose Admin Acetaminophen (Tylenol Tab) 650 mg Q6HP PRN PO HEADACHE or MILD DISCOMFORT 05/04/21 05:15 Al Hydrox/Mg Hydrox/Simethicone (Mylanta) 30 ml Q4HP PRN PO HEARTBURN/INDIGESTION 05/04/21 05:15 Clonazepam (KlonoPIN) 0.5 mg BID PRN PO ANXIETY 05/04/21 11:45 05/05/21 07:14 Diphenhydramine HCl (Benadryl) 50 mg Q6HP PRN PO ANXIETY/AGITATION 05/05/21 08:30 Fluphenazine HCl (Prolixin) 5 mg BID PO 05/04/21 09:00 Fluphenazine HCl (Prolixin) 10 mg Q6HP PRN PO ANXIETY/AGITATION 05/05/21 08:30 Home Med (Home Med List Complete!) ASDIRECTED XX 05/03/21 20:10 05/03/21 20:10 DC Levothyroxine Sodium (Synthroid) 100 mcg DAILY@0600 PO 05/05/21 06:00 05/05/21 06:17 Lorazepam (Ativan) 1 mg Q6HP PRN PO ANXIETY/AGITATION 05/05/21 08:30 Magnesium Hydroxide (Milk Of Magnesia) 30 ml DAILYPRN PRN PO CONSTIPATION 05/04/21 05:15 Olanzapine (ZyPREXA ZYDIS) 5 mg Q4HP PRN PO AGITATION 05/04/21 05:15 Quetiapine Fumarate (SEROquel) 50 mg QHS PRN PO SLEEP 05/04/21 11:45 Trazodone HCl (Desyrel) 50 mg QHSP PRN PO INSOMNIA 05/04/21 05:15 Allergies Coded Allergies: No Known Allergies (Verified , 10/27/05) SELENE KUHN M.D. May 05, 2021 10:52
[2021-05-05] MEDS ORDERED: diphenhydrAMINE 50MG/ML VIAL (J1200) IM STA (11:42)
[2021-05-05] MEDS ORDERED: LORazepam 2 MG/ML VIAL IM STA (11:42)
[2021-05-05] MEDS ORDERED: HALOPERIDOL 5MG/ML VIAL (J1630 PER 1) IM STA (11:42)
[2021-05-05 12:20] VITALS: BP 123/75
[2021-05-05 12:35] VITALS: BP 118/75
[2021-05-05 12:50] VITALS: BP 127/66
--- NOTE | 2021-05-05 13:23 | IPNPDOC ---
Date Seen The patient was seen on 05/05/21. Progress Note Code 25 was called. hospitalist was called to the bedside patient was extremely agitated and could not be re-directed. Patient was assessed for any acute medical needs. He requested some water to drink. He was aggressive towards the staff and was physically abusive and verbally a busive using obscenities. [facility] security staff escorted the patient to designated isolation room and placed on four-point restraints Patient otherwise denies any shortness of breath chest pain pressure tightness nausea vomiting diarrhea headaches constipation. OBJECTIVE PHYSICAL EXAMINATION: VITAL SIGNS: Please see below. GENERAL: Agitated. No respiratory distress. HEENT: Moist mucous membranes no cervical lymphadenopathy CARDIOVASCULAR: S1-S2 regular rate rhythm RESPIRATORY: Clear to auscultation wheezing rales or rhonchi ABDOMINAL: Positive bowel sounds soft nontender nondistended EXTREMITIES: No cyanosis clubbing or pitting edema PSYCHOLOGICAL: Good eye contact agitated combative LABORATORY DATA, IMAGING STUDIES, MICROBIOLOGY: Please see below. ASSESSMENT AND PLAN: 60-year-old male status post code 25 currently being mechanically and physically restrained after failing re-direction. Medical and physical needs have been assessed. Bipolar disorder, manic episode-patient was abusive both physically and verbally to [facility] staff. Patient is currently in four-point restraints and chemically sedated per psychiatrist recommendations. No acute medical needs. Hospitalist will sign off. VS, I&O, 24H, Fishbone Vital Signs/I&O Vital Signs Date Time Temp Pulse Resp B/P (MAP) Pulse Ox O2 Delivery O2 Flow Rate FiO2 05/05/21 06:45 97.6 18 18 126/72 (90) 98 Room Air LISA TERRY MD May 05, 2021 13:23
[2021-05-05 16:49] VITALS: BP 138/90
[2021-05-05] MEDS: QUEtiapine FUMARATE 100 MG TAB PO SCH (21:00)
[2021-05-05] MEDS ORDERED: QUEtiapine FUMARATE 100 MG TAB PO SCH (21:00)
[2021-05-06] MEDS: LEVOTHYROXINE 100MCG TABLET (0.1MG) PO SCH (06:07)
[2021-05-06] MEDS: LORazepam 1 MG TAB PO PRN (06:46)
[2021-05-06] MEDS: fluPHENAZine 5MG TABLET PO SCH ×2 (09:00→21:00)
--- NOTE | 2021-05-06 10:11 | MHIPNPDOC ---
[facility] Progress Note Progress Note DATE OF SERVICE: 05/06/21 The patient was agitated and demanding yesterday and required as needed medications. He is in better spirits in control today and even apologizing for his behavior yesterday. He was given Seroquel 200 mg at bedtime but he refused and he also refused earlier his Prolixin tablets. Patient stated that he received his scheduled Prolixin injection on April 23 and does not want to take anymore antipsychotic medicine until he is due for his Prolixin injection. He is fairly organized in his thinking and is denying any command hallucination and denies any paranoia and is in better control today. HISTORY:. VITAL SIGNS: See below. NEW TEST RESULTS:. CURRENT MEDICATIONS: See below. MENTAL STATUS EXAMINATION: Patient is a 60-year old male, who is in good control. Speech: Is relevant. Language skills are fair. Thought processes including: Coherent. Thought content: Denies any problem. Abstract reasoning, and computation: Poor. Description of associations: Able to answer coherently. Description of abnormal or psychotic thoughts: He is denying any command hallucination and denies any suicidal thoughts. Judgment: Poor. Insight: Poor. Orientation: Oriented. Recent and remote memory: No gross impairment. Attention span and concentration:. Language:. Fund of knowledge:. Mood: Not as angry or irritable. Affect: [Not agitated but labile. DIAGNOSES: 1.. Bipolar disorder manic 2.. Rule out schizoaffective disorder 3.. ASSESSMENT: He is in better control today but is refusing any oral medicine MANAGEMENT PLAN: Continue with the supportive therapy and education. TIME SPENT: 15 minutes. Vital Signs Vital Signs Date Time Temp Pulse Resp B/P (MAP) Pulse Ox O2 Delivery O2 Flow Rate FiO2 05/05/21 16:49 97.7 81 16 138/90 (106) 99 Room Air Current Medications Current Medications Medications (Trade) Dose Ordered Sig/Vivienne Route PRN Reason Start Time Stop Time Status Last Admin Dose Admin Acetaminophen (Tylenol Tab) 650 mg Q6HP PRN PO HEADACHE or MILD DISCOMFORT 05/04/21 05:15 05/05/21 22:03 Al Hydrox/Mg Hydrox/Simethicone (Mylanta) 30 ml Q4HP PRN PO HEARTBURN/INDIGESTION 05/04/21 05:15 Clonazepam (KlonoPIN) 0.5 mg BID PRN PO ANXIETY 05/04/21 11:45 05/05/21 07:14 Diphenhydramine HCl (Benadryl) 50 mg Q6HP PRN PO ANXIETY/AGITATION 05/05/21 08:30 Diphenhydramine HCl (Benadryl) 50 mg STAT STAT IM 05/05/21 11:42 05/05/21 11:45 DC 05/05/21 11:49 Fluphenazine HCl (Prolixin) 5 mg BID PO 05/04/21 09:00 Fluphenazine HCl (Prolixin) 10 mg Q6HP PRN PO ANXIETY/AGITATION 05/05/21 08:30 Haloperidol (Haldol) 5 mg STAT STAT IM 05/05/21 11:42 05/05/21 11:45 DC 05/05/21 11:49 Home Med (Home Med List Complete!) ASDIRECTED XX 05/03/21 20:10 05/03/21 20:10 DC Levothyroxine Sodium (Synthroid) 100 mcg DAILY@0600 PO 05/05/21 06:00 05/06/21 06:07 Lorazepam (Ativan) 1 mg Q6HP PRN PO ANXIETY/AGITATION 05/05/21 08:30 05/06/21 06:46 Lorazepam (Ativan) 1 mg STAT STAT IM 05/05/21 11:42 05/05/21 11:45 DC 05/05/21 11:49 Magnesium Hydroxide (Milk Of Magnesia) 30 ml DAILYPRN PRN PO CONSTIPATION 05/04/21 05:15 Olanzapine (ZyPREXA ZYDIS) 5 mg Q4HP PRN PO AGITATION 05/04/21 05:15 Quetiapine Fumarate (SEROquel) 50 mg QHS PRN PO SLEEP 05/04/21 11:45 Cancel Quetiapine Fumarate (SEROquel) 100 mg QHS PO 05/05/21 21:00 05/05/21 19:06 DC Quetiapine Fumarate (SEROquel) 200 mg QHS PO 05/05/21 21:00 Trazodone HCl (Desyrel) 50 mg QHSP PRN PO INSOMNIA 05/04/21 05:15 Allergies Coded Allergies: No Known Allergies (Verified , 10/27/05) SELENE KUHN M.D. May 06, 2021 10:11
[2021-05-06 16:35] VITALS: BP 140/80
[2021-05-06] MEDS: clonazePAM 0.5 MG TAB PO PRN (19:59)
[2021-05-06] MEDS: QUEtiapine FUMARATE 100 MG TAB PO SCH (21:00)
[2021-05-07] MEDS: LEVOTHYROXINE 100MCG TABLET (0.1MG) PO SCH (06:05)
[2021-05-07 07:40] VITALS: BP 127/90
[2021-05-07] MEDS: clonazePAM 0.5 MG TAB PO PRN ×2 (07:52→21:17)
[2021-05-07] MEDS: fluPHENAZine 5MG TABLET PO SCH ×2 (08:50→21:00)
[2021-05-07] MEDS: LORazepam 1 MG TAB PO PRN (12:38)
--- NOTE | 2021-05-07 14:35 | MHIPNPDOC ---
[facility] Progress Note Progress Note DATE OF SERVICE: 05/07/21 HISTORY: Patient is a 60 -year-old single, unemployed/disabled, , male, who was brought in on a 945 that was initiated by [facility]. He is familiar to this facility and has had similar presentations to this ED. patient was seen for a scheduled appointment and was very agitated, verbally and physically aggressive towards the staff posturing and yelling insults. He refused to de-escalate and subsequently law enforcement was called. In today's session patient reports that he was asked same questions multiple times and that this aggravated him and made him angry. PER ED REPORT: Pt. was brought to ER via [facility] on a 9.45 medicinal plant picker order issued by [facility]. Pt. was seen for scheduled appt today. Pt. became agitated, verbally and physically aggressive towards staff, posturing and yelling insults. Pt. would not deescalate and police were called. It was reported pt. speech was rapid, tangential and was religiously preoccupied. Pt. was cooperative with police after Taser was threatened. t. reports he was very upset with therapist today because he did not like him and was being asked same questions, only in a different way. It was apparent that pt. did not like therapist from the way he talked about him. Pt. speech is rapid, it is difficult to understand pt. at times. He does skip from topic to topic. He is redirectable. Pt. gets easily irritated, does apologize at times, then easily agitated again. He denies HI,SI. He denies AH/VH. Pt mood is very labile, laughing to anger in same sentence. Pt. reports he did smoke marijuana and did "a little" meth this morning because he has a lot to do and needed a pick me up. Pt. admits to increased anxiety recently. Pt. asked about his WBC, states it is usually elevated, is sure he has a blood infection, becomes agitated again when talking about it. Pt. stated something was being pushed through the air vents, when asked about that he made comparison of someone having to defecate and the intestines having to push it out. Pt. reports he did not take medication this morning. VITAL SIGNS: See below. CURRENT MEDICATIONS: See below. MENTAL STATUS EXAMINATION: Patient is a 60 -year-old single, unemployed/disabled, , male, who was brought in on a 945 that was initiated by [facility] Speech: rambling, slurred at times Language skills are fair. Thought processes including: Coherent. Thought content: Denies any problem. Abstract reasoning, and computation: Poor. Description of associations: Able to answer coherently. Description of abnormal or psychotic thoughts: He is denying any command hallucination and denies any suicidal thoughts. Judgment: Poor. Insight: Poor. Orientation: Oriented. Recent and remote memory: No gross impairment. Attention span and concentration: fair Language: expansive Fund of knowledge: average Mood: labile, agitated and irritable. Affect: blunted DIAGNOSES: Bipolar 1 disorder, current episode, manic Methamphetamine use disorder Cannabis use disorder Nicotine use disorder hypothyroid Hypertension ASSESSMENT: Patent reports that he was only touching the female staff to calm them over the weekend. Reinforced with him that these behaviors will not be tolerated. Patient is observed to be slurring and rambling his words. When reviewing why he was sent to [facility] he reports again that he became agitated with Outpatient Mental Health Staff when they asked him questions that he felt was repetitive and redundant. Patient began yelling profanities in the interview when I explained to him the treatment plan was to transfer him to [facility] for continued hospitalization. Patient made vulgar statements and was very aggressive in his words, body language and was threatening this provider. He did not need to be medicated but did forewarn staff of his aggressive behaviors. Patient has a history of stopping his medications, becoming psychotic and manic and being a threatening citizen in the community. I feel strongly that patient should be [place] [facility] [place] MANAGEMENT PLAN: Continue all medications and supportive therapy. 2 PC and transfer [facility] Patient shows a history of dangerous and aggressive behaviors in the community making him a danger to others. TIME SPENT: 25 minutes. Vital Signs Vital Signs Date Time Temp Pulse Resp B/P (MAP) Pulse Ox O2 Delivery O2 Flow Rate FiO2 05/07/21 07:40 97.9 81 18 127/90 (102) 98 Room Air Current Medications Current Medications Medications (Trade) Dose Ordered Sig/Vivienne Route PRN Reason Start Time Stop Time Status Last Admin Dose Admin Acetaminophen (Tylenol Tab) 650 mg Q6HP PRN PO HEADACHE or MILD DISCOMFORT 05/04/21 05:15 05/05/21 22:03 Al Hydrox/Mg Hydrox/Simethicone (Mylanta) 30 ml Q4HP PRN PO HEARTBURN/INDIGESTION 05/04/21 05:15 Clonazepam (KlonoPIN) 0.5 mg BID PRN PO ANXIETY 05/04/21 11:45 05/07/21 07:52 Diphenhydramine HCl (Benadryl) 50 mg Q6HP PRN PO ANXIETY/AGITATION 05/05/21 08:30 Diphenhydramine HCl (Benadryl) 50 mg STAT STAT IM 05/05/21 11:42 05/05/21 11:45 DC 05/05/21 11:49 Fluphenazine HCl (Prolixin) 5 mg BID PO 05/04/21 09:00 Fluphenazine HCl (Prolixin) 10 mg Q6HP PRN PO ANXIETY/AGITATION 05/05/21 08:30 Haloperidol (Haldol) 5 mg STAT STAT IM 05/05/21 11:42 05/05/21 11:45 DC 05/05/21 11:49 Home Med (Home Med List Complete!) ASDIRECTED XX 05/03/21 20:10 05/03/21 20:10 DC Levothyroxine Sodium (Synthroid) 100 mcg DAILY@0600 PO 05/05/21 06:00 05/07/21 06:05 Lorazepam (Ativan) 1 mg Q6HP PRN PO ANXIETY/AGITATION 05/05/21 08:30 05/07/21 12:38 Lorazepam (Ativan) 1 mg STAT STAT IM 05/05/21 11:42 05/05/21 11:45 DC 05/05/21 11:49 Magnesium Hydroxide (Milk Of Magnesia) 30 ml DAILYPRN PRN PO CONSTIPATION 05/04/21 05:15 Olanzapine (ZyPREXA ZYDIS) 5 mg Q4HP PRN PO AGITATION 05/04/21 05:15 Quetiapine Fumarate (SEROquel) 50 mg QHS PRN PO SLEEP 05/04/21 11:45 Cancel Quetiapine Fumarate (SEROquel) 100 mg QHS PO 05/05/21 21:00 05/05/21 19:06 DC Quetiapine Fumarate (SEROquel) 200 mg QHS PO 05/05/21 21:00 Trazodone HCl (Desyrel) 50 mg QHSP PRN PO INSOMNIA 05/04/21 05:15 Allergies Coded Allergies: No Known Allergies (Verified , 10/27/05) ALISHA ERICKSON NP May 07, 2021 14:12
[2021-05-07 16:29] VITALS: BP 128/86
[2021-05-07] MEDS: QUEtiapine FUMARATE 100 MG TAB PO SCH (21:00)
[2021-05-08] MEDS: LEVOTHYROXINE 100MCG TABLET (0.1MG) PO SCH (05:58)
[2021-05-08 07:05] VITALS: BP 125/77
[2021-05-08] MEDS: fluPHENAZine 5MG TABLET PO SCH ×2 (08:10→21:15)
[2021-05-08] MEDS: clonazePAM 0.5 MG TAB PO PRN ×2 (08:11→21:15)
--- NOTE | 2021-05-08 11:49 | MHIPNPDOC ---
[facility] Progress Note Progress Note DATE OF SERVICE: 05/08/21 HISTORY: Patient is a 60 -year-old single, unemployed/disabled, , male, who was brought in on a 945 that was initiated by [facility]. He is familiar to this facility and has had similar presentations to this ED. patient was seen for a scheduled appointment and was very agitated, verbally and physically aggressive towards the staff posturing and yelling insults. He refused to de-escalate and subsequently law enforcement was called. In today's session patient reports that he was asked same questions multiple times and that this aggravated him and made him angry. PER ED REPORT: Pt. was brought to ER via [facility] on a 9.45 cigar packer and picker order issued by [facility]. Pt. was seen for scheduled appt today. Pt. became agitated, verbally and physically aggressive towards staff, posturing and yelling insults. Pt. would not deescalate and police were called. It was reported pt. speech was rapid, tangential and was religiously preoccupied. Pt. was cooperative with police after Taser was threatened. t. reports he was very upset with therapist today because he did not like him and was being asked same questions, only in a different way. It was apparent that pt. did not like therapist from the way he talked about him. Pt. speech is rapid, it is difficult to understand pt. at times. He does skip from topic to topic. He is redirectable. Pt. gets easily irritated, does apologize at times, then easily agitated again. He denies HI,SI. He denies AH/VH. Pt mood is very labile, laughing to anger in same sentence. Pt. reports he did smoke marijuana and did "a little" meth this morning because he has a lot to do and needed a pick me up. Pt. admits to increased anxiety recently. Pt. asked about his WBC, states it is usually elevated, is sure he has a blood infection, becomes agitated again when talking about it. Pt. stated something was being pushed through the air vents, when asked about that he made comparison of someone having to defecate and the intestines having to push it out. Pt. reports he did not take medication this morning. VITAL SIGNS: See below. CURRENT MEDICATIONS: See below. MENTAL STATUS EXAMINATION: Patient is a 60 -year-old single, unemployed/disabled, , male, who was brought in on a 945 that was initiated by [facility] Speech: rambling, slurred at times, tangential, soft Language skills are fair. Thought processes including: coherent Thought content: Denies any problem. Abstract reasoning, and computation: Poor. Description of associations: Able to answer coherently. Description of abnormal or psychotic thoughts: He is denying any command hallucination and denies any suicidal thoughts. Judgment: Poor. Insight: Poor. Orientation: Oriented. Recent and remote memory: No gross impairment. Attention span and concentration: fair Language: expansive Fund of knowledge: average Mood: irritable. Affect: blunted DIAGNOSES: Bipolar 1 disorder, current episode, manic Methamphetamine use disorder Cannabis use disorder Nicotine use disorder hypothyroid Hypertension ASSESSMENT: Patient presents with rapid, rambling and tangential soft speech. He defends his actions out in the community and states that the Test Architect was dumb or trying to instigate him. He continues to ramble on about some things that could not be understood. He became very angry when I reinforced taking the oral prolixin to help him stabilize. He states that he only takes the IM injection and that he will only adhere to that. Patient became very irritable and hostile when Discharge is not discussed and provider reinforced [facility]. According to staff, he continues to be sexually inappropriate and has aggressive undertones. He is social with peers and visible on the unit. Patient is hopeful to be discharge and states that he is in the middle of moving. Update: patient agreed to take Prolixin. MANAGEMENT PLAN: Continue all medications and supportive therapy. 2 PC and transfer to [facility]. Patient shows a history of dangerous and aggressive behaviors in the community making him a danger to others. TIME SPENT: 25 minutes. Vital Signs Vital Signs Date Time Temp Pulse Resp B/P (MAP) Pulse Ox O2 Delivery O2 Flow Rate FiO2 05/08/21 07:05 97.1 78 20 125/77 (93) 95 Room Air Current Medications Current Medications Medications (Trade) Dose Ordered Sig/Vivienne Route PRN Reason Start Time Stop Time Status Last Admin Dose Admin Acetaminophen (Tylenol Tab) 650 mg Q6HP PRN PO HEADACHE or MILD DISCOMFORT 05/04/21 05:15 05/05/21 22:03 Al Hydrox/Mg Hydrox/Simethicone (Mylanta) 30 ml Q4HP PRN PO HEARTBURN/INDIGESTION 05/04/21 05:15 Clonazepam (KlonoPIN) 0.5 mg BID PRN PO ANXIETY 05/04/21 11:45 05/08/21 08:11 Diphenhydramine HCl (Benadryl) 50 mg Q6HP PRN PO ANXIETY/AGITATION 05/05/21 08:30 Diphenhydramine HCl (Benadryl) 50 mg STAT STAT IM 05/05/21 11:42 05/05/21 11:45 DC 05/05/21 11:49 Fluphenazine HCl (Prolixin) 5 mg BID PO 05/04/21 09:00 05/08/21 08:10 Fluphenazine HCl (Prolixin) 10 mg Q6HP PRN PO ANXIETY/AGITATION 05/05/21 08:30 Haloperidol (Haldol) 5 mg STAT STAT IM 05/05/21 11:42 05/05/21 11:45 DC 05/05/21 11:49 Home Med (Home Med List Complete!) ASDIRECTED XX 05/03/21 20:10 05/03/21 20:10 DC Levothyroxine Sodium (Synthroid) 100 mcg DAILY@0600 PO 05/05/21 06:00 05/08/21 05:58 Lorazepam (Ativan) 1 mg Q6HP PRN PO ANXIETY/AGITATION 05/05/21 08:30 05/07/21 12:38 Lorazepam (Ativan) 1 mg STAT STAT IM 05/05/21 11:42 05/05/21 11:45 DC 05/05/21 11:49 Magnesium Hydroxide (Milk Of Magnesia) 30 ml DAILYPRN PRN PO CONSTIPATION 05/04/21 05:15 Olanzapine (ZyPREXA ZYDIS) 5 mg Q4HP PRN PO AGITATION 05/04/21 05:15 Quetiapine Fumarate (SEROquel) 50 mg QHS PRN PO SLEEP 05/04/21 11:45 Cancel Quetiapine Fumarate (SEROquel) 100 mg QHS PO 05/05/21 21:00 05/05/21 19:06 DC Quetiapine Fumarate (SEROquel) 200 mg QHS PO 05/05/21 21:00 Trazodone HCl (Desyrel) 50 mg QHSP PRN PO INSOMNIA 05/04/21 05:15 Allergies Coded Allergies: No Known Allergies (Verified , 10/27/05) ALISHA ERICKSON NP May 08, 2021 11:49
[2021-05-08 18:18] VITALS: BP 114/67
[2021-05-08] MEDS: QUEtiapine FUMARATE 100 MG TAB PO SCH (21:00)
[2021-05-09] MEDS: LEVOTHYROXINE 100MCG TABLET (0.1MG) PO SCH (06:39)
[2021-05-09] MEDS: clonazePAM 0.5 MG TAB PO PRN ×2 (07:59→20:52)
[2021-05-09] MEDS: fluPHENAZine 5MG TABLET PO SCH ×2 (08:00→20:52)
--- NOTE | 2021-05-09 14:09 | MHIPNPDOC ---
[facility] Progress Note Progress Note DATE OF SERVICE: 05/09/21 HISTORY: Patient is a 60 -year-old single, unemployed/disabled, , male, who was brought in on a 945 that was initiated by [facility]. He is familiar to this facility and has had similar presentations to this ED. patient was seen for a scheduled appointment and was very agitated, verbally and physically aggressive towards the staff posturing and yelling insults. He refused to de-escalate and subsequently law enforcement was called. In today's session patient reports that he was asked same questions multiple times and that this aggravated him and made him angry. PER ED REPORT: Pt. was brought to ER via [facility] on a 9.45 cotton picker order issued by [facility]. Pt. was seen for scheduled appt today. Pt. became agitated, verbally and physically aggressive towards staff, posturing and yelling insults. Pt. would not deescalate and police were called. It was reported pt. speech was rapid, tangential and was religiously preoccupied. Pt. was cooperative with police after Taser was threatened. t. reports he was very upset with therapist today because he did not like him and was being asked same questions, only in a different way. It was apparent that pt. did not like therapist from the way he talked about him. Pt. speech is rapid, it is difficult to understand pt. at times. He does skip from topic to topic. He is redirectable. Pt. gets easily irritated, does apologize at times, then easily agitated again. He denies HI,SI. He denies AH/VH. Pt mood is very labile, laughing to anger in same sentence. Pt. reports he did smoke marijuana and did "a little" meth this morning because he has a lot to do and needed a pick me up. Pt. admits to increased anxiety recently. Pt. asked about his WBC, states it is usually elevated, is sure he has a blood infection, becomes agitated again when talking about it. Pt. stated something was being pushed through the air vents, when asked about that he made comparison of someone having to defecate and the intestines having to push it out. Pt. reports he did not take medication this morning. VITAL SIGNS: See below. CURRENT MEDICATIONS: See below. MENTAL STATUS EXAMINATION: Patient is a 60 -year-old single, unemployed/disabled, , male, who was brought in on a 945 that was initiated by [facility] Speech: rambling, tangential, soft Language skills are fair. Thought processes including: coherent Thought content: Denies any problem. Abstract reasoning, and computation: Poor. Description of associations: Able to answer coherently. Description of abnormal or psychotic thoughts: He is denying any command hallucination and denies any suicidal thoughts. Judgment: Improving Insight: Improving Orientation: Oriented. Recent and remote memory: No gross impairment. Attention span and concentration: fair Language: expansive Fund of knowledge: average Mood: Euthymic. Affect: blunted DIAGNOSES: Bipolar 1 disorder, current episode, manic Methamphetamine use disorder Cannabis use disorder Nicotine use disorder hypothyroid Hypertension ASSESSMENT: Patient is less manic today, his speech is improved. Although he continues to be tangential, it does appear that patient is responding to oral Prolixin. He is less intrusive and less irritable and agitated. He had multiple questions for precepting student, Dr. Lyles about Herpes treatment. He was tangential during this and then states to Dr. Lyles that he wants him to be is primary care provider. He is still somewhat grandiose but overall he is improving. MANAGEMENT PLAN: Continue all medications and supportive therapy. Patient is improving as he is now responding to medications, possible discharge on Friday TIME SPENT: 25 minutes. Vital Signs Vital Signs Date Time Temp Pulse Resp B/P (MAP) Pulse Ox O2 Delivery O2 Flow Rate FiO2 05/08/21 18:18 98.2 89 18 114/67 (83) 95 05/08/21 07:05 Room Air Current Medications Current Medications Medications (Trade) Dose Ordered Sig/Vivienne Route PRN Reason Start Time Stop Time Status Last Admin Dose Admin Acetaminophen (Tylenol Tab) 650 mg Q6HP PRN PO HEADACHE or MILD DISCOMFORT 05/04/21 05:15 05/05/21 22:03 Al Hydrox/Mg Hydrox/Simethicone (Mylanta) 30 ml Q4HP PRN PO HEARTBURN/INDIGESTION 05/04/21 05:15 Clonazepam (KlonoPIN) 0.5 mg BID PRN PO ANXIETY 05/04/21 11:45 05/09/21 07:59 Diphenhydramine HCl (Benadryl) 50 mg Q6HP PRN PO ANXIETY/AGITATION 05/05/21 08:30 Diphenhydramine HCl (Benadryl) 50 mg STAT STAT IM 05/05/21 11:42 05/05/21 11:45 DC 05/05/21 11:49 Fluphenazine HCl (Prolixin) 5 mg BID PO 05/04/21 09:00 05/09/21 08:00 Fluphenazine HCl (Prolixin) 10 mg Q6HP PRN PO ANXIETY/AGITATION 05/05/21 08:30 Haloperidol (Haldol) 5 mg STAT STAT IM 05/05/21 11:42 05/05/21 11:45 DC 05/05/21 11:49 Home Med (Home Med List Complete!) ASDIRECTED XX 05/03/21 20:10 05/03/21 20:10 DC Levothyroxine Sodium (Synthroid) 100 mcg DAILY@0600 PO 05/05/21 06:00 05/09/21 06:39 Lorazepam (Ativan) 1 mg Q6HP PRN PO ANXIETY/AGITATION 05/05/21 08:30 05/07/21 12:38 Lorazepam (Ativan) 1 mg STAT STAT IM 05/05/21 11:42 05/05/21 11:45 DC 05/05/21 11:49 Magnesium Hydroxide (Milk Of Magnesia) 30 ml DAILYPRN PRN PO CONSTIPATION 05/04/21 05:15 Olanzapine (ZyPREXA ZYDIS) 5 mg Q4HP PRN PO AGITATION 05/04/21 05:15 Quetiapine Fumarate (SEROquel) 50 mg QHS PRN PO SLEEP 05/04/21 11:45 Cancel Quetiapine Fumarate (SEROquel) 100 mg QHS PO 05/05/21 21:00 05/05/21 19:06 DC Quetiapine Fumarate (SEROquel) 200 mg QHS PO 05/05/21 21:00 Trazodone HCl (Desyrel) 50 mg QHSP PRN PO INSOMNIA 05/04/21 05:15 Allergies Coded Allergies: No Known Allergies (Verified , 10/27/05) ALISHA ERICKSON NP May 09, 2021 14:09
[2021-05-09 17:43] VITALS: BP 122/64
[2021-05-09] MEDS: QUEtiapine FUMARATE 100 MG TAB PO SCH ×2 (20:53→20:56)
[2021-05-10] MEDS: LEVOTHYROXINE 100MCG TABLET (0.1MG) PO SCH (05:56)
[2021-05-10 06:28] VITALS: BP 122/81
[2021-05-10] MEDS: clonazePAM 0.5 MG TAB PO PRN ×2 (08:45→20:09)
[2021-05-10] MEDS: fluPHENAZine 5MG TABLET PO SCH ×2 (08:45→20:09)
--- NOTE | 2021-05-10 14:19 | MHIPNPDOC ---
[facility] Progress Note Progress Note DATE OF SERVICE: 05/10/21 HISTORY: Patient is a 60 -year-old single, unemployed/disabled, , male, who was brought in on a 945 that was initiated by [facility]. He is familiar to this facility and has had similar presentations to this ED. patient was seen for a scheduled appointment and was very agitated, verbally and physically aggressive towards the staff posturing and yelling insults. He refused to de-escalate and subsequently law enforcement was called. In today's session patient reports that he was asked same questions multiple times and that this aggravated him and made him angry. PER ED REPORT: Pt. was brought to ER via [facility] on a 9.45 forklift picker order issued by [facility]. Pt. was seen for scheduled appt today. Pt. became agitated, verbally and physically aggressive towards staff, posturing and yelling insults. Pt. would not deescalate and police were called. It was reported pt. speech was rapid, tangential and was religiously preoccupied. Pt. was cooperative with police after Taser was threatened. t. reports he was very upset with therapist today because he did not like him and was being asked same questions, only in a different way. It was apparent that pt. did not like therapist from the way he talked about him. Pt. speech is rapid, it is difficult to understand pt. at times. He does skip from topic to topic. He is redirectable. Pt. gets easily irritated, does apologize at times, then easily agitated again. He denies HI,SI. He denies AH/VH. Pt mood is very labile, laughing to anger in same sentence. Pt. reports he did smoke marijuana and did "a little" meth this morning because he has a lot to do and needed a pick me up. Pt. admits to increased anxiety recently. Pt. asked about his WBC, states it is usually elevated, is sure he has a blood infection, becomes agitated again when talking about it. Pt. stated something was being pushed through the air vents, when asked about that he made comparison of someone having to defecate and the intestines having to push it out. Pt. reports he did not take medication this morning. VITAL SIGNS: See below. CURRENT MEDICATIONS: See below. MENTAL STATUS EXAMINATION: Patient is a 60 -year-old single, unemployed/disabled, , male, who was brought in on a 945 that was initiated by [facility] Speech: rambling, tangential, soft Language skills are fair. Thought processes including: coherent Thought content: Denies any problem. Abstract reasoning, and computation: Poor. Description of associations: Able to answer coherently. Description of abnormal or psychotic thoughts: He is denying any command hallucination and denies any suicidal thoughts. Judgment: Fair Insight: Fair Orientation: Oriented. Recent and remote memory: No gross impairment. Attention span and concentration: fair Language: expansive Fund of knowledge: average Mood: Euthymic. Affect: blunted DIAGNOSES: Bipolar 1 disorder, current episode, manic Methamphetamine use disorder Cannabis use disorder Nicotine use disorder hypothyroid Hypertension ASSESSMENT: patient denies depression and anxiety, he is observed less hypomanic although his speech is at times soft, tangentially rambling. Complains of Seroquel that makes him very sedated and only took 100 mg last night. This was decreased to 50 mg at HS. Patient states that he was compliant with medications at home, and was giving himself the monthly antipsychotic medications himself. He states that outpatient services told him that he can do it himself. Reinforced with patient that he must go to the clinic to have this medication given to him by an RN. He states that he does not want to pay for this. Suggests that the provider pay for this as he does not "have the money to pay for this." Requested [facility] to verify when patient last had IM injection, he may need this prior to his discharge. MANAGEMENT PLAN: Continue all medications and supportive therapy. Patient is improving as he is now responding to medications, possible discharge on Friday TIME SPENT: 25 minutes. Vital Signs Vital Signs Date Time Temp Pulse Resp B/P (MAP) Pulse Ox O2 Delivery O2 Flow Rate FiO2 05/10/21 06:28 97.8 70 18 122/81 (95) 96 Room Air Current Medications Current Medications Medications (Trade) Dose Ordered Sig/Vivienne Route PRN Reason Start Time Stop Time Status Last Admin Dose Admin Acetaminophen (Tylenol Tab) 650 mg Q6HP PRN PO HEADACHE or MILD DISCOMFORT 05/04/21 05:15 05/05/21 22:03 Al Hydrox/Mg Hydrox/Simethicone (Mylanta) 30 ml Q4HP PRN PO HEARTBURN/INDIGESTION 8/6/21 05:15 Clonazepam (KlonoPIN) 0.5 mg BID PRN PO ANXIETY 05/04/21 11:45 05/10/21 08:45 Diphenhydramine HCl (Benadryl) 50 mg Q6HP PRN PO ANXIETY/AGITATION 05/05/21 08:30 Diphenhydramine HCl (Benadryl) 50 mg STAT STAT IM 05/05/21 11:42 05/05/21 11:45 DC 05/05/21 11:49 Fluphenazine HCl (Prolixin) 5 mg BID PO 05/04/21 09:00 05/10/21 08:45 Fluphenazine HCl (Prolixin) 10 mg Q6HP PRN PO ANXIETY/AGITATION 05/05/21 08:30 Haloperidol (Haldol) 5 mg STAT STAT IM 05/05/21 11:42 05/05/21 11:45 DC 05/05/21 11:49 Home Med (Home Med List Complete!) ASDIRECTED XX 05/03/21 20:10 05/03/21 20:10 DC Levothyroxine Sodium (Synthroid) 100 mcg DAILY@0600 PO 05/05/21 06:00 05/10/21 05:56 Lorazepam (Ativan) 1 mg Q6HP PRN PO ANXIETY/AGITATION 05/05/21 08:30 05/07/21 12:38 Lorazepam (Ativan) 1 mg STAT STAT IM 05/05/21 11:42 05/05/21 11:45 DC 05/05/21 11:49 Magnesium Hydroxide (Milk Of Magnesia) 30 ml DAILYPRN PRN PO CONSTIPATION 05/04/21 05:15 Miscellaneous (Unresolved Clarification Entry) SEE LABEL COMMENTS DAILY XX 05/09/21 09:00 Olanzapine (ZyPREXA ZYDIS) 5 mg Q4HP PRN PO AGITATION 05/04/21 05:15 Quetiapine Fumarate (SEROquel) 50 mg QHS PO 05/10/21 21:00 Quetiapine Fumarate (SEROquel) 50 mg QHS PRN PO SLEEP 05/04/21 11:45 Cancel Quetiapine Fumarate (SEROquel) 100 mg QHS PO 05/05/21 21:00 05/05/21 19:06 DC Quetiapine Fumarate (SEROquel) 200 mg QHS PO 05/05/21 21:00 05/10/21 08:52 DC 05/09/21 20:56 Trazodone HCl (Desyrel) 50 mg QHSP PRN PO INSOMNIA 05/04/21 05:15 Allergies Coded Allergies: No Known Allergies (Verified , 10/27/05) ALISHA ERICKSON NP May 10, 2021 14:19
[2021-05-10 19:24] VITALS: BP 129/80
[2021-05-10] MEDS ORDERED: QUEtiapine FUMARATE 50MG TAB PO SCH (21:00)
[2021-05-11] MEDS: LEVOTHYROXINE 100MCG TABLET (0.1MG) PO SCH (05:22)
[2021-05-11 06:30] VITALS: BP 113/82
[2021-05-11] MEDS: fluPHENAZine 5MG TABLET PO SCH (08:10)
[2021-05-11] MEDS: clonazePAM 0.5 MG TAB PO PRN (08:10)
[2021-05-11] MEDS ORDERED: fluPHENAZine DECAN 25MG/ML 5ML VIAL (J2680) IM SCH ×2 (09:00→15:00)
[2021-05-11] MEDS ORDERED: FLUP5TAB13 PO (10:43)
[2021-05-11] MEDS ORDERED: FLUP25VL IM (10:43)
[2021-05-11] MEDS ORDERED: CLON0.5T2 PO (10:43)
[2021-05-11] MEDS ORDERED: QUET50TA4 PO (10:43)
--- NOTE | 2021-05-11 12:30 | MHDSPDOC ---
[facility] Discharge Summary Discharge Summary DATE OF ADMISSION: May 03, 2021 at 14:29 DATE OF DISCHARGE: May 11, 2021 at 11:27 DISCHARGE DIAGNOSES: Bipolar 1 disorder, current episode, manic Methamphetamine use disorder Cannabis use disorder Nicotine use disorder hypothyroid Hypertension REASON FOR ADMISSION: Patient is a 60 -year-old single, unemployed/disabled, , male, who was brought in on a 945 that was initiated by [facility]. He is familiar to this facility and has had similar presentations to this ED. patient was seen for a scheduled appointment and was very agitated, verbally and physically aggressive towards the staff posturing and yelling insults. He refused to de-escalate and subsequently law enforcement was called. In today's session patient reports that he was asked same questions multiple times and that this aggravated him and made him angry. PER ED REPORT: Pt. was brought to ER via [facility] on a 9.45 car pick up driver order issued by [facility]. Pt. was seen for scheduled appt today. Pt. became agitated, verbally and physically aggressive towards staff, posturing and yelling insults. Pt. would not deescalate and police were called. It was reported pt. speech was rapid, tangential and was religiously preoccupied. Pt. was cooperative with police after Taser was threatened. t. reports he was very upset with therapist today because he did not like him and was being asked same questions, only in a different way. It was apparent that pt. did not like therapist from the way he talked about him. Pt. speech is rapid, it is difficult to understand pt. at times. He does skip from topic to topic. He is redirectable. Pt. gets easily irritated, does apologize at times, then easily agitated again. He denies HI,SI. He denies AH/VH. Pt mood is very labile, laughing to anger in same sentence. Pt. reports he did smoke marijuana and did "a little" meth this morning because he has a lot to do and needed a pick me up. Pt. admits to increased anxiety recently. Pt. asked about his WBC, states it is usually elevated, is sure he has a blood infection, becomes agitated again when talking about it. Pt. stated something was being pushed through the air vents, when asked about that he made comparison of someone having to defecate and the intestines having to push it out. Pt. reports he did not take medication this morning. VITAL SIGNS: See below. CONSULTANTS INVOLVED: See Medical H + P by Hospitalist TREATMENT AND PROGRESS ON THE UNIT: Patient was admitted to the [facility] on a 39 legal status he was afforded the following treatment modalities: 1) Individual Therapy 2) Group Therapy 3) Medication Management 4) Milieu Therapy 5) Safe Environment HOSPITAL COURSE: Patient was admitted to [facility] on a 39 legal status. Patient was manic and psychotic and for the first few days of his admission he refused medications. 2PC and transfer to [facility] was initiated as patient has a long history of admission in this facility and does not improve without medications. Within two days of the order to transfer to [facility], patient became adherent to the treatmentplan and started taking the oral Prolixin. It was too early for his IM injection. During this admission patient had admitted that he was taking the Prolixin Decanoate syringe and injecting himself. It is unclear if patient was being truthful or not. We attempted to get the date of his last IM injection by outside providers without answers prior to his discharge. Pt found medications beneficial and tolerated them well. Patient was given a small dose of Prolixin Decanoate 12.5 mg to help mitigate any increase in manic and psychotic behaviors before his next appointment. Mood, anxiety, and intrusive thoughts improved with treatment. Pt attended groups daily during stay. Pts symptoms improved with treatment. On day of discharge he denied depression, anxiety, insomnia, SI/HI, hallucinations, delusions, manic or psychosis. Pt was discharged home with follow-up with [facility]. Pt felt safe for discharge. DISCHARGE ASSESSMENT: In today's interview, patient is alert and oriented, pts dress is appropriate. Hygiene and grooming is well-kempt. Smiles on approach and is pleasant and engaged in the interview. Denies depression and anxiety. Denies suicidal and homicidal ideation, planning or intent. Denies and is not observed with sorin, psychotic symptoms of delusions, bizarre thinking, obsessions, paranoia, ruminations illogical thoughts, flight of ideas or having poor insight and judgement. Patient has normal mentation, declines further hospitalization on a voluntary status and meets criteria for discharge today. Patient encouraged to return to hospital if symptoms worsen or change and encouraged to call unit if he/she/they needs to speak to provider for questions regarding medications or care. MENTAL STATUS EXAMINATION ON DISCHARGE: Patient is a 60 -year-old single, unemployed/disabled, , male, who was brought in on a 945 that was initiated by [facility]. for being agitated, verbally and physically aggressive towards the staff posturing and yelling insults at his outpatient appointment. Speech: Is fluid, conversant, normal rate, tone and volume Language skills are intact Thought processes including: linear and goal oriented Thought content: denies depression and anxiety. Denies suicidal/homicidal ideati on, planning or intent. Abstract reasoning, and computation: fair Description of associations: denies, none observed Description of abnormal or psychotic thoughts: denies, none observed. Judgment: fair Insight: fair Orientation: alert and oriented to person, place, time and situation Recent and remote memory: intact Attention span and concentration: good Language: expansive Fund of knowledge: average Mood: Euthymic Mood Affect: reactive MEDICATIONS ON DISCHARGE: See Medication Reconciliation PLAN/FOLLOWUP ARRANGEMENTS: [facility] The amount of time spent in the coordination of care for this patient was approximately 25 minutes. ETOH/Disorder Med Rx ETOH/DRUG DISORDER RX: Offrd @ d/c & pt refused Vital Signs/I&Os Vital Signs Date Time Temp Pulse Resp B/P (MAP) Pulse Ox O2 Delivery O2 Flow Rate FiO2 05/11/21 06:30 98.0 68 16 113/82 (92) 98 Room Air Medications Scheduled Fluphenazine Decanoate (Fluphenazine Decanoate) 25 Mg/1 Ml Vial, 50 MG IM QMONTH for Psychosis, #1 Next dose due 05/21/21 Fluphenazine HCl (Fluphenazine HCl) 5 Mg Tablet, 5 MG PO BID for Psychosis, #14 Levothyroxine Sodium (Levothyroxine Sodium) 100 Mcg Tablet, 100 MCG PO DAILY, (Reported) Scheduled PRN Clonazepam (Clonazepam) 0.5 Mg Tablet, 0.5 MG PO BID PRN for ANXIETY for 7 Days, #14 Naproxen (EC-Naproxen) 500 Mg Tablet.dr, 500 MG PO BID PRN for MILD PAIN (PS 1- 4), (Reported) Quetiapine Fumarate (Quetiapine Fumarate) 50 Mg Tablet, 50 MG PO QHS PRN for SLEEP, #7 TAKE 1 TABLET AT BEDTIME Allergies Coded Allergies: No Known Allergies (Verified , 10/27/05) ALISHA ERICKSON NP May 11, 2021 12:30
== END 2021-05-11 11:27 | disposition home or self-care (01) | DRG 885 ==
LOC: M ED 14:28 → M ED INP 14:29 → M PSY 05-04 07:40
PROVIDERS: ADMIT Psychiatry & Neurology Psychiatry; ATTEND Psychiatry & Neurology Psychiatry
DX: F31.9 Bipolar disorder, unspecified (principal); F15.10 Other stimulant abuse, uncomplicated; F12.10 Cannabis abuse, uncomplicated; F17.210 Nicotine dependence, cigarettes, uncomplicated; E03.9 Hypothyroidism, unspecified; I10 Essential (primary) hypertension; Z56.0 Unemployment, unspecified; M25.562 Pain in left knee; Z20.822 Contact with and (suspected) exposure to COVID-19; Z79.899 Other long term (current) drug therapy; Z78.1 Physical restraint status; F25.9 Schizoaffective disorder, unspecified